=== PATIENT | male | born 1990 | race Caucasian/White ===

== ENCOUNTER → 2020-08-19 | Outpatient (CLI) | payer MEDICAID ==
[2020-08-19 12:34] LABS: AMPHETAMINES URINE REFLEX NEGATIVE (NEGATIVE); BARBITURATES URINE REFLEX NEGATIVE (NEGATIVE); BENZODIAZEPINES URINE REFLEX NEGATIVE (NEGATIVE); COCAINE METABOLITE URINE REFLE NEGATIVE (NEGATIVE); METHADONE URINE REFLEX NEGATIVE (NEGATIVE); OPIATES URINE REFLEX NEGATIVE (NEGATIVE); PHENCYCLIDINE URINE REFLEX NEGATIVE (NEGATIVE)
[2020-08-19 14:12] LABS: CANNABINOIDS URINE REFLEX PENDING CONFIRMATION (NEGATIVE)
== END ==
LOC: EDSEX 10:25 → M LAB 10:25
PROVIDERS: ATTEND Family Medicine Addiction Medicine
DX: F11.21 Opioid dependence, in remission (principal)
CPT/HCPCS: 36415; 80307; G0480

== ENCOUNTER 2020-09-17 06:41 | Emergency (ER) | payer OTHER ==
[~2020-09-17] VITALS: Ht 170.2 cm; Wt 75.3 kg
[2020-09-17] MEDS ORDERED: SUBO12MI SL (06:52)
[2020-09-17] MEDS ORDERED: BUPR150T5 (06:52)
[2020-09-17 07:23] LABS: HEMATOCRIT 39.3 % (42.0-52.0); HEMOGLOBIN 13.7 g/dl (13.5-17.5); MEAN CORPUSCULAR HEMOGLOBIN 29.9 pg (27.0-33.0); MEAN CORPUSCULAR HGB CONC 34.9 g/dl (32.0-36.5); MEAN CORPUSCULAR VOLUME 85.8 fl (80.0-96.0); PLATELET COUNT, AUTOMATED 244 10^3/uL (150-450); RED BLOOD COUNT 4.58 10^6/uL (4.30-6.10); WHITE BLOOD COUNT 10.2 10^3/uL (4.0-10.0)
[2020-09-17 07:39] LABS: AMPHETAMINES LEVEL URINE POSITIVE (NEGATIVE); BARBITURATES URINE NEGATIVE (NEGATIVE); BENZODIAZEPINES URINE NEGATIVE (NEGATIVE); CANNABINOIDS URINE POSITIVE (NEGATIVE); COCAINE METABOLITE URINE NEGATIVE (NEGATIVE); METHADONE URINE NEGATIVE (NEGATIVE); OPIATES URINE NEGATIVE (NEGATIVE); PHENCYCLIDINE URINE NEGATIVE (NEGATIVE)
[2020-09-17 08:04] LABS: ACETAMINOPHEN LEVEL < 2.0 UG/ML (10.0-30.0); ALBUMIN 4.7 GM/DL (3.2-5.2); ALT/SGPT 64 U/L (12-78); BILIRUBIN,DIRECT 0.4 MG/DL (0.0-0.2); BILIRUBIN,TOTAL 1.4 MG/DL (0.2-1.0); BLOOD UREA NITROGEN 20 MG/DL (7-18); CALCIUM LEVEL 9.1 MG/DL (8.5-10.1); CARBON DIOXIDE LEVEL 24 MEQ/L (21-32); CHLORIDE LEVEL 103 MEQ/L (98-107); CREATININE FOR GFR 1.15 MG/DL (0.70-1.30); ETHYL ALCOHOL (ETHANOL) < 0.003 % (0.000-0.010); GLOMERULAR FILTRATION RATE > 60.0 (>60); GLUCOSE, FASTING 93 MG/DL (70-100); POTASSIUM SERUM 3.6 MEQ/L (3.5-5.1); SALICYLATE LEVEL < 1.7 MG/DL (5.0-30.0); SODIUM LEVEL 140 MEQ/L (136-145); TOTAL PROTEIN 8.1 GM/DL (6.4-8.2)
--- OUTSIDE RECORDS SUMMARY | 2020-09-17 08:18 | CCD ---
Author Organization Unknown Address [address] [place] [address] Phone [phone] Care Team Providers Care Rotary Shear Cutter Name Role Phone Yusuf Sepulveda Unavailable Unavailable Allergies Code Code System Name Reaction Severity Status Onset NKDA Medications Name Status Start Date Stop Date albuterol sulfate HFA 90 mcg/actuation aerosol inhaler Active Not available amoxicillin 500 mg capsule TAKE TWO CAPSULES BY MOUTH NOW THEN THEN 1 THREE TIMES A DAY UNTIL GONE Active Not available budesonide-formoterol HFA 160 mcg-4.5 mcg/actuation aerosol inha ler Active Not available buprenorphine 12 mg-naloxone 3 mg sublin gual film PLACE ONE FILM UNDER THE TONGUE EVERY DAY DIRECTED MAXIMUM DAILY DOSE ONE FILM Active Not available buprenorphine 8 mg-naloxone 2 mg subling ual film 1 and 1/2 films once daily. MDD 1 and 1/2 Active Not available bupropion HCl 75 mg tablet TAKE ONE TABLET BY MOUTH EVERY DAY FOR 7 DAYS THEN 1 TWO TIMES A DAY Completed 07/02/2020 bupropion HCl SR 150 mg tablet,12 hr sustained-release Active Not available bupropion HCl XL 150 mg 24 hr tablet, ex tended release TAKE ONE TABLET BY MOUTH EVERY DAY Completed 06/20 chlorhexidine gluconate 0.12 % mouthwash SWISH 15 ML BY MOUTH FOR 30 SECONDS AND SPIT TWO TIMES A DAY Active Not available famotidine 10 mg tablet Take 1 tablet every day by oral route. Active Not available fluticasone propionate 50 mcg/actuation nasal spray,suspension SPRAY 2 SPRAYS IN EACH NOSTRIL EVERY DAY Active Not available oxcarbazepine 300 mg tablet TAKE 1/2 TABLET BY MOUTH FOUR TIMES A DAY Completed 07/02/2020 sulfamethoxazole 800 mg-trimethoprim 160 mg tablet TAKE ONE TABLET BY MOUTH TWICE A DAY FOR 7 DAYS Completed 07/02/2020 trazodone 50 mg tablet Active Not avail able Problems Name Status Onset Date Source Asthma Active 07/02/2020 Opioid Dependence in Remission Active 08/02/2020 Gastroesophageal Reflux Disease without Esophagitis Active 08/30/2020 Procedures Date Name Performed by 08/09/2020 Dental Surgery Procedure Information not available Results Lab Results Date Name Specimen Result Interpretation Description Value Range Status Address 08/19/2020 Drug Eval Toxicology Rehab Normal A mphetamines Urine Reflex negative negative [facility] nter: [address] [facility] Normal Barbiturates Urine Reflex negative n egative [facility]: [address] [facility] Normal Benzodiazepines Urine Reflex negativ e negative [facility]: [address] [facility] High Cannabinoids Urine Reflex pending co nfirmation negative [facility]: [address] [facility] Normal Cocaine Metabolite Urine Refle negat haja negative [facility]: [address] [facility] Normal Methadone Urine Reflex negative nega tive [facility]: [address] [facility] Normal Opiates Urine Reflex negative negati ve [facility]: [address] [facility] Normal Phencyclidine Urine Reflex negative negative [facility]: [address] [facility] 08/19/2020 Cannabinoids Quant Urine ABNORMAL Cannabinoid positive . [facility]: [address] [facility] Normal GC Carboxy THC >300 NG/mL cutoff=10 NG/mL [facility]: [address] [facility] 08/11/2020 Drug of Abuse Panel, Urine No observation recorded. [facility]: [address] [facility] [address], [facility] 08/02/2020 Drug of Abuse Panel, Urine Urine No observation recorded. [facility]: [address] [facility] [address], [place] Past Encounters 08/30/2020 Opioid Dependence in Remission; Insomnia; Gastroesophageal Reflux Disease without Esophagitis; Polysubstance Abuse Yusuf Sepulveda MD: [address] [place] [address], Ph. 08/19/2020 Opioid Dependence in Remission; Insomnia Yusuf Sepulveda MD: [address] [place] [address], Ph. 08/11/2020 Opioid Dependence in Remission Yusuf Sepulveda MD: [address] [place] [address], Ph. 08/02/2020 Opioid Dependence in Remission Yusuf Sepulveda MD: [address] [place] [address], Ph. 07/02/2020 Moderate Persistent Asthma; Smoker; Epigastric Pain; Hepatitis C Screening; Hyperlipidemia Screening; Polysubstance Abuse Cecily Frazier PA-C: [address] [place] [address], Ph. Social History Tobacco Smoking Status Heavy Tobacco Smoker (1/2 PPD) Vaccine List Notes: Pt declined flu shot Plan of Care Reminders Provider Appointments None recorded. Lab None recorded. Referral None recorded. Procedures None recorded. Surgeries None recorded. Imaging None recorded. Vitals 08/30/2020 11:00AM MAT Height Weight BMI Blood Pressure 68.4 in 185 lbs 27.8 kg/m2 102/74 mm[Hg] 08/19/2020 08:40AM MAT Height Weight BMI Blood Pressure 68.4 in 185 lbs 8 oz 27.9 kg/m2 116/80 mm[Hg] 08/11/2020 03:20PM MAT Height Weight BMI Blood Pressure 68.4 in 192 lbs 4 oz 28.9 kg/m2 123/81 mm[Hg] 08/02/2020 02:40PM MAT Height Weight BMI Blood Pressure 68.4 in 185 lbs 16 oz 27.9 kg/m2 111/80 mm[Hg] 07/02/2020 12:40PM NEW PATIENT EXAM Height Weight BMI Blood Pressure 68.4 in 181 lbs 16 oz 27.3 kg/m2 109/71 mm[Hg]
--- OUTSIDE RECORDS SUMMARY | 2020-09-17 08:18 | CCD ---
Author Organization Unknown Address [address] [place] [address] Phone [phone] Care Team Providers Care Hog Driver Name Role Phone Yusuf Sepulveda Unavailable Unavailable [...] TWO TIMES A DAY Active Not available fluticasone propionate 50 mcg/actuation nasal spray,suspension SPRAY 2 SPRAYS IN EACH NOSTRIL EVERY DAY Active Not available oxcarbazepine 300 mg tablet TAKE 1/2 TABLET BY MOUTH FOUR TIMES A DAY Completed 07/02/2020 sulfamethoxazole 800 mg-trimethoprim 160 mg tablet TAKE ONE TABLET BY MOUTH TWICE A DAY FOR 7 DAYS Completed 07/02/2020 Problems Name Status Onset Date Source Asthma Active 07/02/2020 Opioid Dependence in Remission Active 08/02/2020 Procedures Date Name Performed by 08/09/2020 Dental Surgery Procedure Information not available Results Lab Results Date Name Specimen Result Interpretation Description Value Range Status Address 08/02/2020 Drug of Abuse Panel, Urine Urine No observation recorded. [facility]: [address] [facility] [address], [place] Past Encounters 08/11/2020 Opioid Dependence in Remission Yusuf Sepulveda MD: [address] [place] [address], Ph. 08/02/2020 Opioid Dependence in Remission Yusuf Sepulveda MD: [address] [place] [address], Ph. 07/02/2020 Moderate Persistent Asthma; Smoker; Epigastric Pain; Hepatitis C Screening; Hyperlipidemia Screening; Polysubstance Abuse Cecily Frazier PA-C: [address] [place] [address], Ph. Social History Tobacco Smoking Status Heavy Tobacco Smoker (1/2 PPD) Vaccine List Notes: Pt declined flu shot Plan of Care Reminders Provider Appointments None recorded. Lab None recorded. Referral None recorded. Procedures None recorded. Surgeries None recorded. Imaging None recorded. Vitals 08/11/2020 03:20PM MAT Height Weight BMI Blood Pressure 68.4 in 192 lbs 4 oz 28.9 kg/m2 123/81 mm[Hg] 08/02/2020 02:40PM MAT Height Weight BMI Blood Pressure 68.4 in 185 lbs 16 oz 27.9 kg/m2 111/80 mm[Hg] 07/02/2020 12:40PM NEW PATIENT EXAM Height Weight BMI Blood Pressure 68.4 in 181 lbs 16 oz 27.3 kg/m2 109/71 mm[Hg]
--- OUTSIDE RECORDS SUMMARY | 2020-09-17 08:18 | CCD ---
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 Results Lab Results None recorded. Past Encounters 08/02/2020 Opioid Dependence in Remission Yusuf Sepulveda MD: [address] [place] [address], Ph. 07/02/2020 Moderate Persistent Asthma; Smoker; Epigastric Pain; Hepatitis C Screening; Hyperlipidemia Screening; Polysubstance Abuse Cecily Frazier PA-C: [address] [place] [address], Ph. Social History Tobacco Smoking Status Current Every Day Smoker Vaccine List None recorded. Plan of Care Reminders Provider Appointments None recorded. Lab None recorded. Referral None recorded. Procedures None recorded. Surgeries None recorded. Imaging None recorded. Vitals 08/02/2020 02:40PM MAT Height Weight BMI Blood Pressure 68.4 in 185 lbs 16 oz 27.9 kg/m2 111/80 mm[Hg] 07/02/2020 12:40PM NEW PATIENT EXAM Height Weight BMI Blood Pressure 68.4 in 181 lbs 16 oz 27.3 kg/m2 109/71 mm[Hg]
--- OUTSIDE RECORDS SUMMARY | 2020-09-17 08:18 | CCD | Continuity of Care Document ---
Author Author [facility] [employer] Organization Unknown Address [address] [place] [address] Phone [phone] Problems Description No Information Available Social History Type Date Description Comments Sex Unknown Tobacco Use Start: Unknown Light tobacco smoker (10 or fewe r cigarettes/day) ETOH Use Denies alcohol use Recreational Drug Use Former Drug User Tobacco Use Start: Unknown Light tobacco smoker (10 or fewe r cigarettes/day) Smoking Status Reviewed: 06/16/20 Light tobacco smoker (10 or fewer cigarettes/day) Allergies, Adverse Reactions, Alerts Description No Known Drug Allergies Medications Active Medications SIG Qnty Indications Ordering Provide r Date Bupropion Hydrochloride ER (SR) 150mg Tablets ER 12HR 1 by mouth every day 30tabs F33.1 Zaire Harris MD 04/08/2020 Budesonide/Formoterol Fumarate Dihydrate 160-4.5mcg/Act Aerosol 1 puff twice a day 6gm J45.909 Faustina Harris MD 03/17/2020 Albuterol Sulfate HFA 108(90Base) mcg/Act Aerosol 2 inhalations four times a day as needed 6.700gm J45.909 Zaire Harris MD 07/24/2019 Buprenorphine Hydrochloride/Naloxone Hyd rochloride 8-2mg Film 1 and 1/2 sl every day x [id number] 17units F11.20 Sharla Yi NP 07/01/2019 History Medications Bupropion HCL ER (SR) 150mg Tablets ER 12HR 1 every day 30tabs F33.1 Sharla Yi NP 04/08/2020 - 04/08/2020 Bupropion HCL 75mg Tablets 1 every day for 1 week, then 2 per day 60tabs F33.1 Sharla Yi NP 0 - 04/08/2020 Immunizations Description No Information Available Vital Signs Date Vital Result Comment 07/09/2019 4:16pm Weight 162.50 lb Heart Rate 75 /min BP Systolic 102 mmHg BP Diastolic 70 mmHg Height 68 inches 5'8" O2 % BldC Oximetry 98 % [place] Body Weight 154 lb BMI (Body Mass Index) 24.7 kg/m2 06/27/2019 9:02am Body Temperature 98.0 F Weight 166.00 lb Heart Rate 85 /min BP Systolic 130 mmHg BP Diastolic 84 mmHg Height 68 inches 5'8" O2 % BldC Oximetry 97 % [place] Body Weight 154 lb BMI (Body Mass Index) 25.2 kg/m2 Results Test Acquired Date Facility Test Result H/L Range Note Drugs of Abuse w/o THC-[facility] 06/16/2020 [facility] Amphetamines,Urine NEGATIVE <1000 ng/mL 1 Barbiturates,Urine NEGATIVE <200 ng/mL Benzodiazepines, Urine NEGATIVE <200 ng/mL Bupernorphrine/Norbu,Urine POSITIVE Abnormal <10 ng/mL Cocaine Metabolites,Urine NEGATIVE <300 ng/mL Methadone,Urine NEGATIVE <300 ng/mL Opiates,Urine NEGATIVE <300 ng/mL Oxycodone,Urine NEGATIVE <100 ng/mL Phencyclidine,Urine NEGATIVE <25 ng/mL Buprenorphine & Metabolite -Urine 06/16/2020 [facility] Buprenorphine Ur 16 ng/mL 2 Norbuprenorphine Ur 116 ng/mL Buprenorphine Glucu >1000 3 Norbupr Glucuronide 723 4 Naloxone,Urine <100 ng/mL 5 Drugs of Abuse w/o THC-[facility] 03/17/2020 [facility] Amphetamines,Urine NEGATIVE <1000 ng/mL Barbiturates,Urine NEGATIVE <200 ng/mL Benzodiazepines, Urine NEGATIVE <200 ng/mL Bupernorphrine/Norbu,Urine POSITIVE Abnormal <10 ng/mL Cocaine Metabolites,Urine NEGATIVE <300 ng/mL Methadone,Urine NEGATIVE <300 ng/mL Opiates,Urine NEGATIVE <300 ng/mL Oxycodone,Urine NEGATIVE <100 ng/mL Phencyclidine,Urine NEGATIVE <25 ng/mL Chlamydia & GC, Dna-[facility] 03/17/2020 [facility] Chlamydia NOT DETECTED Not Detected GC NOT DETECTED Not Detected Buprenorphine & Metabolite -Urine 03/17/2020 [facility] Buprenorphine Ur 3 ng/mL 6 Norbuprenorphine Ur 31 ng/mL Buprenorphine Glucu 333 7 Norbupr Glucuronide 93 8 Naloxone,Urine <100 ng/mL 9 1 TEST FOR BURPERNORPHRINE 2 INTERPRETIVE INFORMATION: Bu prenorphine and Metabolites, Urine, Quantitative Methodology: Quantitative Liquid Chromatography-Tandem Mass Spectrometry Positive cutoff: Buprenorphine 2 ng/mL Norbuprenorphine 2 ng/mL Buprenorphine glucuronide 5 ng/mL Norbuprenorphine glucuronide 5 ng/mL Naloxone 100 ng/mL For medical purposes only; not valid for forensic use. The presence of metabolite(s) without parent drug is common and may indicate use of parent drug during the prior week. Naloxone is included to detect addition of a naloxone-containing drug directly into the urine. The absence of expected drug(s) and/or drug metabolite(s) may indicate non-compliance, inappropriate timing of specimen collection relative to drug administration, poor drug absorption, diluted/adulterated urine, or limitations of testing. The concentration value must be greater than or equal to the cutoff to be reported as positive. Interpretive questions should be directed to the laboratory. Test developed and characteristics determined by [employer]. See Compliance Statement B: [email or web address]/CS 3 Unit: ng/mL Consistent with use of a buprenorphine-containing drug. Glucuronide concentrations are semi-quantitative. 4 Unit: ng/mL 5 Performed By: [facility] [address] [place] [address] Aged Or Disabled Care Worker: Yaneth Bar MD Unless otherwise specified, testing performed by [facility] [address] [place] [id number] [phone] INTERPRETIVE INFORMATION: Bu prenorphine and Metabolites, Urine, Quantitative Methodology: Quantitative Liquid Chromatography-Tandem Mass Spectrometry Positive cutoff: Buprenorphine 2 ng/mL Norbuprenorphine 2 ng/mL Buprenorphine glucuronide 5 ng/mL Norbuprenorphine glucuronide 5 ng/mL Naloxone 100 ng/mL For medical purposes only; not valid for forensic use. The presence of metabolite(s) without parent drug is common and may indicate use of parent drug during the prior week. Naloxone is included to detect addition of a naloxone-containing drug directly into the urine. The absence of expected drug(s) and/or drug metabolite(s) may indicate non-compliance, inappropriate timing of specimen collection relative to drug administration, poor drug absorption, diluted/adulterated urine, or limitations of testing. The concentration value must be greater than or equal to the cutoff to be reported as positive. Interpretive questions should be directed to the laboratory. Test developed and characteristics determined by [employer]. See Compliance Statement B: [email or web address] 7 Unit: ng/mL Consistent with use of a buprenorphine-containing drug. Glucuronide concentrations are semi-quantitative. 8 Unit: ng/mL 9 Performed By: [facility] [address] [place] [address] Aged Or Disabled Care Worker: Severo Orta MD, MS Unless otherwise specified, testing performed by [facility] [place] [address] Procedures Description No Information Available Medical Devices Description No Information Available Encounters Type Date Location Provider Dx Diagnosis Office Visit 07/21/2020 3:20p [facility] Sharla Yi NP F11.20 Opioid dependence, uncomplicated F33.1 Major depressive disorder, r ecurrent, moderate Office Visit 07/07/2020 2:00p [facility] Sharla Yi NP F11.20 Opioid dependence, uncomplicated F33.1 Major depressive disorder, r ecurrent, moderate Office Visit 06/23/2020 2:00p [facility] Sharla Yi NP F11.20 Opioid dependence, uncomplicated F33.1 Major depressive disorder, r ecurrent, moderate Office Visit 06/16/2020 2:20p [facility] Sharla Yi NP F11.20 Opioid dependence, uncomplicated F33.1 Major depressive disorder, r ecurrent, moderate Office Visit 06/07/2020 3:20p [facility] Brittany Weiner NP F11.20 Opioid dependence, uncomplicated F33.1 Major depressive disorder, r ecurrent, moderate B18.2 Chronic viral hepatitis C J45.909 Unspecified asthma, uncompli cated Office Visit 04/15/2020 2:00p [facility] Sharla Yi NP F11.20 Opioid dependence, uncomplicated F33.1 Major depressive disorder, r ecurrent, moderate B18.2 Chronic viral hepatitis C J45.909 Unspecified asthma, uncompli cated Office Visit 04/08/2020 1:20p [facility] Sharla Yi NP F11.20 Opioid dependence, uncomplicated F33.1 Major depressive disorder, r ecurrent, moderate Office Visit 04/01/2020 1:20p [facility] Sharla Yi NP F11.20 Opioid dependence, uncomplicated F33.1 Major depressive disorder, r ecurrent, moderate Office Visit 03/25/2020 1:20p [facility] Sharla Yi, [employer]IL FIELD [employer]STABOUT F11.20 Opioid dependence, uncomplicated F33.1 Major depressive disorder, r ecurrent, moderate Office Visit 03/17/2020 2:40p [facility] Sharla Yi, [employer] F11.20 Opioid dependence, uncomplicated F33.1 Major depressive disorder, r ecurrent, moderate B18.2 Chronic viral hepatitis C J45.909 Unspecified asthma, uncompli cated Z20.2 Contact w and exposure to in fect w a sexl mode of transmiss Assessments Date Code Description Provider 07/21/2020 F11.20 Opioid dependence, uncomplicated Reta Yie, [employer] 07/21/2020 F33.1 Major depressive disorder, recur rent, moderate Kd Sharla, [employer] 07/07/2020 F11.20 Opioid dependence, uncomplicated Yi, Sharla, [employer] 07/07/2020 F33.1 Major depressive disorder, recur rent, moderate Kd Sharla, [employer] FIELD [employer]ST[employer]OUT 06/23/2020 F11.20 Opioid dependence, uncomplicated Yi, Sharla, [employer] 06/23/2020 F33.1 Major depressive disorder, recur rent, moderate Yi, Sharla, [employer]OUT 06/16/2020 F11.20 Opioid dependence, uncomplicated Yi, Sharla, [employer] 06/16/2020 F33.1 Major depressive disorder, recur rent, moderate Yi, Sharla, [employer] 06/16/2020 F11.20 Opioid dependence, uncomplicated [facility] 06/07/2020 F11.20 Opioid dependence, uncomplicated Padden, Brittany, [employer] 06/07/2020 F33.1 Major depressive disorder, recur rent, moderate Padden, Brittany, [employer] 06/07/2020 B18.2 Chronic viral hepatitis C Padden , Brittany, [employer] 06/07/2020 J45.909 Unspecified asthma, uncomplicate d Padden, Brittany, [employer] 04/15/2020 F11.20 Opioid dependence, uncomplicated Yi, Sharla, [employer] 04/15/2020 F33.1 Major depressive disorder, recur rent, moderate Yi, Sharla, [employer]OUT 04/15/2020 B18.2 Chronic viral hepatitis C Kd Sharla, [employer] FIELD [employer]STABOUT 04/15/2020 J45.909 Unspecified asthma, uncomplicate d Sharla Yi, [employer]ELD [employer]STABOUT 04/08/2020 F11.20 Opioid dependence, uncomplicated Sharla Yi, KRISTEL 04/08/2020 F33.1 Major depressive disorder, recur rent, moderate Sharla Yi, [employer]OUT 04/01/2020 F11.20 Opioid dependence, uncomplicated Sharla Yi, OIL FIELD R[employer]STABOUT 04/01/2020 F33.1 Major depressive disorder, recur rent, moderate Sharla Yi, OIL FIELD R[employer]STABOUT 03/25/2020 F11.20 Opioid dependence, uncomplicated Sharla Yi, OIL FIELD R[employer]STABOUT 03/25/2020 F33.1 Major depressive disorder, recur rent, moderate Sharla Yi, OIL FIELD R[employer]STABOUT 03/17/2020 F11.20 Opioid dependence, uncomplicated Sharla Yi, OIL FIELD ROUSTABOUT 03/17/2020 F33.1 Major depressive disorder, recur rent, moderate Sharla Yi, OIL FIELD R[employer]STABOUT 03/17/2020 B18.2 Chronic viral hepatitis C Sharla Yi NP 03/17/2020 J45.909 Unspecified asthma, uncomplicate d Sharla Yi, [employer]IL FIELD [employer]STABOUT 03/17/2020 Z20.2 Contact with and (gusman spected) exposure to infections with a predominantly sexual mode of transmission Sharla Yi NP 03/17/2020 F11.20 [facility]ioid [facility], uncomplicated [facility] 03/17/2020 Z20.2 Contact w and exposure to infect w a sexl mode of transmiss [facility] Plan of Treatment 07/21/2020 - Sharla Yi NP* F11.20 Opioid dependence, uncomplicated* Comments: * I spent 15 minutes discussing the goals of therapy, short term bridge, expectation of no use, weekly visit, weekly urines, and engage in therapy. Stressed the need to come to the appointments, use coping skills, and not use any recreational drugs. Plan: Had appointment with [facility] for PCP and intake for MAT on 07/02/20. Next appointment with MAT prescriber 08/02/20.Urine toxicity screen from previous visit reviewed. Prescribed medication only.Patient states that 12 mg of Suboxone is helping to avoid use of opioids. My recommendation is to continue on same dose for 11 days. Should then recieve MAT from maintenance prescriber. WIll contact us if presciption extension needed.MUNICIPAL CLERK reviewed. * F33.1 Major depressive disorder, recurrent, moderate* Comments:* Taking wellbutrin 150 mg per day with benefit. Functional Status Description No Information Available Mental Status Description No Information Available Referrals Description No Information Available
--- OUTSIDE RECORDS SUMMARY | 2020-09-17 08:18 | CCD ---
Author Organization Unknown Address [address] [place] [address] Phone [phone] Care Team Providers Care Share Holder Name Role Phone Derick Yusuf Unavailable Unavailable Allergies Code Code System Name [...] DAYS Completed 07/02/2020 trazodone 50 mg tablet Take 1 tablet every day by oral route. Active Not available Problems Name Status Onset Date Source Asthma Active 07/02/2020 Opioid Dependence in Remission Active 08/02/2020 Procedures Date Name Performed by 08/09/2020 Dental Surgery Procedure Information not available Results Lab Results Date Name Specimen Result Interpretation Description Value Range Status Address 08/11/2020 Drug of Abuse Panel, Urine No observation recorded. [facility]: [address] [facility] Ayesha Pulido 08/02/2020 Drug of Abuse Panel, Urine Urine No observation recorded. [facility]: [address] [facility] [address] Past Encounters 08/19/2020 Opioid Dependence in Remission; Insomnia Yusuf Sepulveda MD: [address] [place] [address], Ph. 08/11/2020 Opioid Dependence in Remission Yusuf Sepulveda MD: [address] [place] [address], Ph. 08/02/2020 Opioid Dependence in Remission Yusuf Sepulveda MD: [address] [place] [address], Ph. 07/02/2020 Moderate Persistent Asthma; Smoker; Epigastric Pain; Hepatitis C Screening; Hyperlipidemia Screening; Polysubstance Abuse Cecily Frazier PA-C: [address] [place] [address], Ph. Social History Tobacco Smoking Status Heavy Tobacco Smoker (1/2 PPD) Vaccine List Notes: Pt declined flu shot Plan of Care Reminders Provider Appointments None recorded. Lab None recorded. Referral None recorded. Procedures None recorded. Surgeries None recorded. Imaging None recorded. Vitals 08/19/2020 08:40AM MAT Height Weight BMI Blood [...]
--- OUTSIDE RECORDS SUMMARY | 2020-09-17 08:19 | CCD ---
Author Organization Unknown Address [address] [place] [address] Phone [phone] Care Team Providers Care Machine Ii Cutter Name Role Phone Yusuf Sepulveda Unavailable Unavailable Allergies None recorded. Medications Name Status Start Date Stop Date albuterol sulfate HFA 90 mcg/actuation a erosol inhaler INHALE TWO PUFFS BY MOUTH FOUR TIMES A DAY NEEDED Active Not available budesonide-formoterol HFA 160 mcg-4.5 mc g/actuation aerosol inhaler INSTILL 1 PUFF BY MOUTH TWO TIMES A DAY Active Not available buprenorphine 12 mg-naloxone 3 mg sublin gual film PLACE ONE FILM UNDER THE TONGUE EVERY DAY DIRECTED MAXIMUM DAILY DOSE ONE FILM Active Not available buprenorphine 8 mg-naloxone 2 mg subling ual film PLACE ONE AND ONE HALF FILMS UNDER THE TONGUE EVERY DAY MAXIMUM DAILY DOSE 1 1/2 FILMS Completed 07/02/2020 bupropion HCl 75 mg tablet TAKE ONE TABLET BY MOUTH EVERY DAY FOR 7 DAYS THEN 1 TWO TIMES A DAY Completed 07/02/2020 bupropion HCl SR 150 mg tablet,12 hr tabby tained-release TAKE ONE TABLET BY MOUTH EVERY DAY Active Not available bupropion HCl XL 150 [...] Status Onset Date Source Asthma Active 07/02/2020 Procedures None recorded. Results Lab Results None recorded. Past Encounters 07/02/2020 Moderate Persistent Asthma; Smoker; Epigastric Pain; Hepatitis C Screening; Hyperlipidemia Screening; Polysubstance Abuse [facility] [address] [place] [address], Ph. Social History Tobacco Smoking Status Current Every Day Smoker Vaccine List None recorded. Plan of Care Reminders Provider Appointments None recorded. Lab None recorded. Referral None recorded. Procedures None recorded. Surgeries None recorded. Imaging None recorded. Vitals Height Weight BMI Blood Pressure 68.4 in 181 lbs 16 oz 27.3 kg/m2 109/71 mm[Hg]
--- OUTSIDE RECORDS SUMMARY | 2020-09-17 08:19 | CCD | Continuity of Care Document ---
Author Author [facility] YI TICKET MARKER Organization Unknown Address [address] [place] [address] Phone [phone] Problems Description No Information Available Social History [...] a day as needed 6.700gm J45.909 Zaire aHrris MD 07/24/2019 Buprenorphine Hydrochloride/Naloxone Hyd rochloride 8-2mg Film 1 and 1/2 sl every day x [id number] 21units F11.20 Sharla Yi NP 07/01/2019 History Medications [...] 5'8" O2 % BldC Oximetry 98 % [place] Body Weight 154 lb BMI (Body Mass Index) 24.7 kg/m2 06/27/2019 9:02am Body Temperature 98.0 F Weight 166.00 lb Heart Rate 85 /min BP Systolic 130 mmHg BP Diastolic 84 mmHg Height 68 inches 5'8" O2 % BldC Oximetry 97 % [place] Body Weight 154 lb BMI (Body Mass [...] laboratory. Test developed and characteristics determined by [facility]. See Compliance Statement B: [email or web address] 3 Unit: ng/mL Consistent with use of a buprenorphine-containing drug. Glucuronide concentrations are semi-quantitative. 4 Unit: ng/mL 5 Performed By: [facility] [address] [place] [address] Straightening Machine Operator: Yaneth Bar MD Unless otherwise specified, testing performed by [facility] [place] [facility] [address] [place] [id number] [phone] INTERPRETIVE INFORMATION: Bu prenorphine and Metabolites, [...] laboratory. Test developed and characteristics determined by [facility]. See Compliance Statement B: [email or web address] 7 Unit: ng/mL Consistent with use of a buprenorphine-containing drug. Glucuronide concentrations are semi-quantitative. 8 Unit: ng/mL 9 Performed By: [facility] [address] [place] [address] Straightening Machine Operator: Severo Orta MD, MS Unless otherwise specified, testing performed by [facility] [place] [facility] [address] [address] Procedures Description No Information Available Medical Devices Description No Information Available Encounters Type Date Location Provider Dx Diagnosis Office Visit 07/07/2020 2:00p [facility] Sharla Yi NP F11.20 Opioid dependence, uncomplicated F33.1 Major depressive disorder, r ecurrent, moderate Office Visit 06/23/2020 2:00p [facility] Sharla Yi NP F11.20 Opioid dependence, uncomplicated F33.1 Major depressive disorder, r ecurrent, moderate Office Visit 06/16/2020 2:20p [facility] Sharla Yi NP F11.20 Opioid dependence, uncomplicated F33.1 Major depressive disorder, r ecurrent, moderate Office Visit 06/07/2020 3:20p [facility] Brittany Weiner NP F11.20 Opioid dependence, uncomplicated F33.1 Major depressive disorder, r ecurrent, moderate B18.2 Chronic viral hepatitis C J45.909 Unspecified asthma, uncompli cated Office Visit 04/15/2020 2:00p [facility] Sharla Yi NP F11.20 Opioid dependence, uncomplicated F33.1 Major depressive disorder, r ecurrent, moderate B18.2 Chronic viral hepatitis C J45.909 Unspecified asthma, uncompli cated Office Visit 04/08/2020 1:20p [facility] Sharla Yi NP F11.20 Opioid dependence, uncomplicated F33.1 Major depressive disorder, r ecurrent, moderate Office Visit 04/01/2020 1:20p [facility] Sharla Yi NP F11.20 Opioid dependence, uncomplicated F33.1 Major depressive disorder, r ecurrent, moderate Office Visit 03/25/2020 1:20p [facility] Sharla Yi NP F11.20 Opioid dependence, uncomplicated F33.1 Major depressive disorder, r ecurrent, moderate Office Visit 03/17/2020 2:40p [facility] Sharla Yi, TICKET MARKER F11.20 Opioid dependence, uncomplicated F33.1 Major depressive disorder, r ecurrent, moderate B18.2 Chronic viral hepatitis C J45.909 Unspecified asthma, uncompli cated Z20.2 Contact w and exposure to in fect w a sexl mode of transmiss Assessments Date Code Description Provider 07/07/2020 F11.20 Opioid dependence, uncomplicated Sharla Yi, TICKET MARKER 07/07/2020 F33.1 Major depressive disorder, recur rent, moderate Kd Sharla, TICKET MARKER 06/23/2020 F11.20 Opioid dependence, uncomplicated Reta Yie, TICKET MARKER 06/23/2020 F33.1 Major depressive disorder, recur rent, moderate Kd Sharla, TICKET MARKER 06/16/2020 F11.20 Opioid dependence, uncomplicated Reta Yie, TICKET MARKER 06/16/2020 F33.1 Major depressive disorder, recur rent, moderate Reta Yie, TICKET MARKER 06/16/2020 F11.20 Opioid dependence, uncomplicated [facility] 06/07/2020 F11.20 Opioid dependence, uncomplicated Padden, Brittany, TICKET MARKER 06/07/2020 F33.1 Major depressive disorder, recur rent, moderate Padden, Brittany, TICKET MARKER 06/07/2020 B18.2 Chronic viral hepatitis C Padden , Brittany, TICKET MARKER 06/07/2020 J45.909 Unspecified asthma, uncomplicate d Padden, Brittany, TICKET MARKER 04/15/2020 F11.20 Opioid dependence, uncomplicated Kd Sharla, TICKET MARKER 04/15/2020 F33.1 Major depressive disorder, recur rent, moderate Kd Sharla, TICKET MARKER 04/15/2020 B18.2 Chronic viral hepatitis C Kd Sharla, TICKET MARKER 04/15/2020 J45.909 Unspecified asthma, uncomplicate d Kd Sharla, TICKET MARKER 04/08/2020 F11.20 Opioid dependence, uncomplicated Kd Sharla, TICKET MARKER 04/08/2020 F33.1 Major depressive disorder, recur rent, moderate Kd Sharla, TICKET MARKER 04/01/2020 F11.20 Opioid dependence, uncomplicated Yi Sharla, TICKET MARKER 04/01/2020 F33.1 Major depressive disorder, recur rent, moderate Sharla Yi NP 03/25/2020 F11.20 Opioid dependence, uncomplicated Sharla Yi NP 03/25/2020 F33.1 Major depressive disorder, recur rent, moderate Sharla Yi NP 03/17/2020 F11.20 Opioid dependence, uncomplicated Sharla Yi NP 03/17/2020 F33.1 Major depressive disorder, recur rent, moderate Sharla Yi NP 03/17/2020 B18.2 Chronic viral hepatitis C Sharla Yi NP 03/17/2020 J45.909 Unspecified asthma, uncomplicate d Sharla Yi NP 03/17/2020 Z20.2 Contact with and (gusman spected) exposure to infections with a predominantly sexual mode of transmission Sharla Yi NP 03/17/2020 F11.20 Opioid dependence, uncomplicated [facility] 03/17/2020 Z20.2 Contact w and exposure to infect w a sexl mode of transmiss [facility] Plan of Treatment Future Appointment(s):* 07/21/2020 3:00 pm - Sharla Yi NP at [facility] 07/07/2020 - Sharla Yi NP* F11.20 Opioid dependence, uncomplicated* Comments: * I spent 15 minutes discussing the goals of therapy, short term bridge, expectation of no use, weekly visit, weekly urines, and engage in therapy. Stressed the need to come to the appointments, use coping skills, and not use any recreational drugs. Plan: Had appointment with [facility] for PCP and intake for MAT on 07/02/20. Waiting word from them on when he can start their program.Urine toxicity screen from previous visit reviewed. Prescribed medication only.Patient states that 12 mg of Suboxone is helping to avoid use of opioids. My recommendation is to continue on same dose for 14 days. 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 * F33.1 Major depressive disorder, recurrent, moderate* Comments:* Taking wellbutrin 150 mg per day with benefit. Functional Status Description No Information Available Mental Status Description No Information Available Referrals Description No Information Available
--- OUTSIDE RECORDS SUMMARY | 2020-09-17 08:19 | CCD | Continuity of Care Document ---
Author Author EFRAÍN Bentley [facility] Organization Unknown Address [address] [place] [address] Phone [phone] Problems Description No Information Available Social History [...] 1 and 1/2 sl every day x [id number] 21units F11.20 Sharla Yi NP 07/01/2019 History [...] 5'8" O2 % BldC Oximetry 98 % [place] Body Weight 154 lb BMI (Body Mass Index) 24.7 kg/m2 06/27/2019 9:02am Body Temperature 98.0 F Weight 166.00 lb Heart Rate 85 /min BP Systolic 130 mmHg BP Diastolic 84 mmHg Height 68 inches 5'8" O2 % BldC Oximetry 97 % [place] Body Weight 154 lb BMI (Body Mass [...] laboratory. Test developed and characteristics determined by [email or web address]. See Compliance Statement B: [email or web address] 3 Unit: ng/mL Consistent with use of a buprenorphine-containing drug. Glucuronide concentrations are semi-quantitative. 4 Unit: ng/mL 5 Performed By: [facility] [address] [place] [address] Forest Fire Control Officer: Yaneth Bar MD Unless otherwise specified, testing performed by [facility] [place] [email or web address] [address] [place] [id number] [phone] INTERPRETIVE INFORMATION: Bu prenorphine and Metabolites, [...] laboratory. Test developed and characteristics determined by [email or web address]. See Compliance Statement B: [email or web address] 7 Unit: ng/mL Consistent with use of a buprenorphine-containing drug. Glucuronide concentrations are semi-quantitative. 8 Unit: ng/mL 9 Performed By: [facility] [address] [place] [address] Forest Fire Control Officer: Severo Orta MD, MS Unless otherwise specified, testing performed by [facility] [place] [facility] [address] [address] Procedures Description No Information Available Medical Devices Description No Information Available Encounters Type Date Location Provider Dx Diagnosis Office Visit 06/23/2020 2:00p [email or web address] Sharla Yi NP F11.20 Opioid dependence, [...] uncompli cated Office Visit 04/08/2020 1:20p [facility] Sharla Slater NP F11.20 Opioid dependence, uncomplicated F33.1 Major depressive disorder, r ecurrent, moderate Office Visit 04/01/2020 1:20p [facility] Sharla Yi NP F11.20 Opioid dependence, uncomplicated F33.1 Major depressive disorder, r ecurrent, moderate Office Visit 03/25/2020 1:20p [facility] Sharla Yi NP F11.20 Opioid dependence, uncomplicated F33.1 Major depressive disorder, r ecurrent, moderate Office Visit 03/17/2020 2:40p [facility] Sharla Slater NP F11.20 Opioid dependence, uncomplicated F33.1 Major depressive disorder, r ecurrent, moderate B18.2 Chronic viral hepatitis C J45.909 Unspecified asthma, uncompli cated Z20.2 Contact w and exposure to in fect w a sexl mode of transmiss Assessments Date Code Description Provider 06/23/2020 F11.20 Opioid dependence, uncomplicated Yi, Sharla, TAKER AWAY 06/23/2020 F33.1 Major depressive disorder, recur rent, moderate Yi, Sharla, TAKER AWAY 06/16/2020 F11.20 Opioid dependence, uncomplicated Yi, Sharla, TAKER AWAY 06/16/2020 F33.1 Major depressive disorder, recur rent, moderate Yi, Sharla, TAKER AWAY 06/16/2020 F11.20 Opioid dependence, uncomplicated [facility] 06/07/2020 F11.20 Opioid dependence, uncomplicated Padden, Brittany, TAKER AWAY 06/07/2020 F33.1 Major depressive disorder, recur rent, moderate Padden, Brittany, TAKER AWAY 06/07/2020 B18.2 Chronic viral hepatitis C Padden , Brittany, TAKER AWAY 06/07/2020 J45.909 Unspecified asthma, uncomplicate d Padden, Brittany, TAKER AWAY 04/15/2020 F11.20 Opioid dependence, uncomplicated Yi, Sharla, TAKER AWAY 04/15/2020 F33.1 Major depressive disorder, recur rent, moderate Yi, Sharla, TAKER AWAY 04/15/2020 B18.2 Chronic viral hepatitis C Iy, Sharla, TAKER AWAY 04/15/2020 J45.909 Unspecified asthma, uncomplicate d Yi, Sharla, TAKER AWAY 04/08/2020 F11.20 Opioid dependence, uncomplicated Yi, Sharla, TAKER AWAY 04/08/2020 F33.1 Major depressive disorder, recur rent, moderate Yi, Sharla, TAKER AWAY 04/01/2020 F11.20 Opioid dependence, uncomplicated Yi, Sharla, TAKER AWAY 04/01/2020 F33.1 Major depressive disorder, recur rent, moderate Yi, Sharla, TAKER AWAY 03/25/2020 F11.20 Opioid dependence, uncomplicated Yi, Sharla, TAKER AWAY 03/25/2020 F33.1 Major depressive disorder, recur rent, moderate Yi, Sharla, TAKER AWAY 03/17/2020 F11.20 Opioid dependence, uncomplicated Yi, Sharla, TAKER AWAY 03/17/2020 F33.1 Major depressive disorder, recur rent, moderate Sharla Yi NP 03/17/2020 B18.2 Chronic viral hepatitis C Sharla Yi NP 03/17/2020 J45.909 Unspecified asthma, uncomplicate d Sharla Yi NP 03/17/2020 Z20.2 Contact with and (gusman spected) exposure to infections with a predominantly sexual mode of transmission Sharla Yi NP 03/17/2020 F11.20 Opioid dependence, uncomplicated [facility] 03/17/2020 Z20.2 Contact w and exposure to infect w a sexl mode of transmiss [facility] Plan of Treatment Future Appointment(s):* 07/07/2020 2:00 pm - Sharla Yi NP at [facility] 06/23/2020 - Sharla Yi NP* F11.20 Opioid dependence, uncomplicated* Comments: * I spent 15 minutes discussing the goals of therapy, short term bridge, expectation of no use, weekly visit, weekly urines, and engage in therapy. Stressed the need to come to the appointments, use coping skills, and not use any recreational drugs. Plan: Has appointment with [facility] for PCP and intake for MAT on 07/02/20.Urine toxicity screen from previous visit reviewed. Prescribed medication only.Patient states that 12 mg of Suboxone is helping to avoid use of opioids. My recommendation is to continue on same dose for 14 days. 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 * F33.1 Major depressive disorder, recurrent, moderate* Comments:* Taking wellbutrin 150 mg per day with benefit. Functional Status Description No Information Available Mental Status Description No Information Available Referrals Description No Information Available
--- OUTSIDE RECORDS SUMMARY | 2020-09-17 08:19 | CCD | Continuity of Care Document ---
Author Author Sanford YI TRAILER SECTIONS ASSEMBLER Organization Unknown Address [address] [place] [id number] Phone [phone] Problems Description No Information Available Social History [...] 1 and 1/2 sl every day x [id number] 21units F11.20 Sharla Yi NP 07/01/2019 History [...] 5'8" O2 % BldC Oximetry 98 % [place] Body Weight 154 lb BMI (Body Mass Index) 24.7 kg/m2 06/27/2019 9:02am Body Temperature 98.0 F Weight 166.00 lb Heart Rate 85 /min BP Systolic 130 mmHg BP Diastolic 84 mmHg Height 68 inches 5'8" O2 % BldC Oximetry 97 % [place] Body Weight 154 lb BMI (Body Mass [...] laboratory. Test developed and characteristics determined by [facility]. See Compliance Statement B: [email or web address] 3 Unit: ng/mL Consistent with use of a buprenorphine-containing drug. Glucuronide concentrations are semi-quantitative. 4 Unit: ng/mL 5 Performed By: [facility] [address] [place] [address] Medical Staff Director: Yaneth Bar MD Unless otherwise specified, testing performed by [facility] [place] [facility] [address] [place] [id number] INTERPRETIVE INFORMATION: Bu prenorphine and Metabolites, [...] laboratory. Test developed and characteristics determined by [facility]. See Compliance Statement B: [email or web address] 7 Unit: ng/mL Consistent with use of a buprenorphine-containing drug. Glucuronide concentrations are semi-quantitative. 8 Unit: ng/mL 9 Performed By: [facility] [address] [place] [address] Medical Staff Director: Severo Orta MD, MS Unless otherwise specified, testing performed by [facility] [place] [address] Procedures Description No Information Available Medical Devices Description No Information Available Encounters Type Date Location Provider Dx Diagnosis Office Visit 06/23/2020 2:00p [facility] Sharla Slater NP F11.20 Opioid dependence, uncomplicated F33.1 Major depressive disorder, r ecurrent, moderate Office Visit 06/16/2020 2:20p [facility] Sharla Yi NP F11.20 Opioid dependence, uncomplicated F33.1 Major depressive disorder, r ecurrent, moderate Office Visit 06/07/2020 3:20p [facility] Brittany Weiner NP F11.20 Opioid dependence, uncomplicated F33.1 Major depressive disorder, r ecurrent, moderate B18.2 Chronic viral hepatitis C J45.909 Unspecified asthma, uncompli cated Office Visit 04/15/2020 2:00p [facility] Sharla Yi NP F11.20 Opioid dependence, uncomplicated F33.1 Major depressive disorder, r ecurrent, moderate B18.2 Chronic viral hepatitis C J45.909 Unspecified asthma, uncompli cated Office Visit 04/08/2020 1:20p [facility] Sharla Slater NP F11.20 Opioid dependence, uncomplicated F33.1 Major depressive disorder, r ecurrent, moderate Office Visit 04/01/2020 1:20p [facility] Sharla Yi NP F11.20 Opioid dependence, uncomplicated F33.1 Major depressive disorder, r ecurrent, moderate Office Visit 03/25/2020 1:20p [facility] Sharla Yi NP F11.20 Opioid dependence, uncomplicated F33.1 Major depressive disorder, r ecurrent, moderate Office Visit 03/17/2020 2:40p [facility] Sharla Yi NP F11.20 Opioid dependence, uncomplicated F33.1 Major depressive disorder, r ecurrent, moderate B18.2 Chronic viral hepatitis C J45.909 Unspecified asthma, uncompli cated Z20.2 Contact w and exposure to in fect w a sexl mode of transmiss Assessments Date Code Description Provider 06/23/2020 F11.20 Opioid dependence, uncomplicated Yi, Sharla, TRAILER SECTIONS ASSEMBLER 06/23/2020 F33.1 Major depressive disorder, recur rent, moderate Yi, Sharla, TRAILER SECTIONS ASSEMBLER 06/16/2020 F11.20 Opioid dependence, uncomplicated Yi, Sharla, TRAILER SECTIONS ASSEMBLER 06/16/2020 F33.1 Major depressive disorder, recur rent, moderate Yi, Sharla, TRAILER SECTIONS ASSEMBLER 06/16/2020 F11.20 Opioid dependence, uncomplicated [facility] 06/07/2020 F11.20 Opioid dependence, uncomplicated Padden, Brittany, TRAILER SECTIONS ASSEMBLER 06/07/2020 F33.1 Major depressive disorder, recur rent, moderate Padden, Brittany, TRAILER SECTIONS ASSEMBLER 06/07/2020 B18.2 Chronic viral hepatitis C Padden , Brittany, TRAILER SECTIONS ASSEMBLER 06/07/2020 J45.909 Unspecified asthma, uncomplicate d Padden, Brittany, TRAILER SECTIONS ASSEMBLER 04/15/2020 F11.20 Opioid dependence, uncomplicated Yi, Sharla, TRAILER SECTIONS ASSEMBLER 04/15/2020 F33.1 Major depressive disorder, recur rent, moderate Yi, Sharla, TRAILER SECTIONS ASSEMBLER 04/15/2020 B18.2 Chronic viral hepatitis C Yi, Sharla, TRAILER SECTIONS ASSEMBLER 04/15/2020 J45.909 Unspecified asthma, uncomplicate d Yi, Sharla, TRAILER SECTIONS ASSEMBLER 04/08/2020 F11.20 Opioid dependence, uncomplicated Yi, Sharla, TRAILER SECTIONS ASSEMBLER 04/08/2020 F33.1 Major depressive disorder, recur rent, moderate Yi, Sharla, TRAILER SECTIONS ASSEMBLER 04/01/2020 F11.20 Opioid dependence, uncomplicated Yi, Sharla, TRAILER SECTIONS ASSEMBLER 04/01/2020 F33.1 Major depressive disorder, recur rent, moderate Yi, Sharla, TRAILER SECTIONS ASSEMBLER 03/25/2020 F11.20 Opioid dependence, uncomplicated Yi, Sharla, TRAILER SECTIONS ASSEMBLER 03/25/2020 F33.1 Major depressive disorder, recur rent, moderate Yi, Sharla, TRAILER SECTIONS ASSEMBLER 03/17/2020 F11.20 Opioid dependence, uncomplicated Yi, Sharla, TRAILER SECTIONS ASSEMBLER 03/17/2020 F33.1 Major depressive disorder, recur rent, moderate Sharla Yi NP 03/17/2020 B18.2 Chronic viral hepatitis C Sharla Yi NP 03/17/2020 J45.909 Unspecified asthma, uncomplicate d Sharla Yi NP 03/17/2020 Z20.2 Contact with and (gusman spected) exposure to infections with a predominantly sexual mode of transmission Sharla Yi NP 03/17/2020 F11.20 Opioid dependence, uncomplicated [facility] 03/17/2020 Z20.2 Contact w and exposure to infect w a sexl mode of transmiss [facility] Plan of Treatment Future Appointment(s):* 07/07/2020 2:00 pm - Sharla Yi NP at [facility] 06/23/2020 - Sharla Yi NP* F11.20 Opioid dependence, uncomplicated* Comments: * I spent 15 minutes discussing the goals of therapy, short term bridge, expectation of no use, weekly visit, weekly urines, and engage in therapy. Stressed the need to come to the appointments, use coping skills, and not use any recreational drugs. Plan: Has appointment with [facility] for PCP and intake for MAT on 07/02/20.Urine toxicity screen from previous visit reviewed. Prescribed medication only.Patient states that 12 mg of Suboxone is helping to avoid use of opioids. My recommendation is to continue on same dose for 14 days. 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 * F33.1 Major depressive disorder, recurrent, moderate* Comments:* Taking wellbutrin 150 mg per day with benefit. Functional Status Description No Information Available Mental Status Description No Information Available Referrals Description No Information Available
--- OUTSIDE RECORDS SUMMARY | 2020-09-17 08:19 | CCD | Continuity of Care Document ---
Author Author [place] YI JAVA DEVELOPER ANALYST Organization Unknown Address [address] [place] [id number] Phone [phone] Problems Description No Information Available Social History [...] 1 and 1/2 sl every day x [id number] 21units F11.20 Sharla Yi NP 07/01/2019 History [...] 5'8" O2 % BldC Oximetry 98 % [place] Body Weight 154 lb BMI (Body Mass Index) 24.7 kg/m2 06/27/2019 9:02am Body Temperature 98.0 F Weight 166.00 lb Heart Rate 85 /min BP Systolic 130 mmHg BP Diastolic 84 mmHg Height 68 inches 5'8" O2 % BldC Oximetry 97 % [place] Body Weight 154 lb BMI (Body Mass [...] laboratory. Test developed and characteristics determined by [email or web address]. See Compliance Statement B: [email or web address] 3 Unit: ng/mL Consistent with use of a buprenorphine-containing drug. Glucuronide concentrations are semi-quantitative. 4 Unit: ng/mL 5 Performed By: [facility] [address] [place] [address] Batch Plant Operator: Yaneth Bar MD Unless otherwise specified, testing performed by [facility] [address] [place] [id number] INTERPRETIVE INFORMATION: Bu prenorphine and Metabolites, [...] laboratory. Test developed and characteristics determined by [email or web address]. See Compliance Statement B: [email or web address] 7 Unit: ng/mL Consistent with use of a buprenorphine-containing drug. Glucuronide concentrations are semi-quantitative. 8 Unit: ng/mL 9 Performed By: [facility] [address] [place] [address] Batch Plant Operator: Severo Orta MD, MS Unless otherwise specified, testing performed by [facility] [employer] [place] [address] Procedures Description No Information Available Medical Devices Description No Information Available Encounters Type Date Location Provider Dx Diagnosis Office Visit 06/23/2020 2:00p [facility] Sharla Slater NP F11.20 Opioid dependence, uncomplicated F33.1 Major depressive disorder, r ecurrent, moderate Office Visit 06/16/2020 2:20p [facility] Sharla Yi NP F11.20 Opioid dependence, uncomplicated F33.1 Major depressive disorder, r ecurrent, moderate Office Visit 06/07/2020 3:20p [facility] Brittany Weiner NP F11.20 Opioid dependence, uncomplicated F33.1 Major depressive disorder, r ecurrent, moderate B18.2 Chronic viral hepatitis C J45.909 Unspecified asthma, uncompli cated Office Visit 04/15/2020 2:00p [facility] Sharla Yi NP F11.20 Opioid dependence, uncomplicated F33.1 Major depressive disorder, r ecurrent, moderate B18.2 Chronic viral hepatitis C J45.909 Unspecified asthma, uncompli cated Office Visit 04/08/2020 1:20p [facility] Sharla Slater NP F11.20 Opioid dependence, uncomplicated F33.1 Major depressive disorder, r ecurrent, moderate Office Visit 04/01/2020 1:20p [facility] Sharla Yi NP F11.20 Opioid dependence, uncomplicated F33.1 Major depressive disorder, r ecurrent, moderate Office Visit 03/25/2020 1:20p [facility] Sharla Yi NP F11.20 Opioid dependence, uncomplicated F33.1 Major depressive disorder, r ecurrent, moderate Office Visit 03/17/2020 2:40p [facility] Sharla Yi NP F11.20 Opioid dependence, uncomplicated F33.1 Major depressive disorder, r ecurrent, moderate B18.2 Chronic viral hepatitis C J45.909 Unspecified asthma, uncompli cated Z20.2 Contact w and exposure to in fect w a sexl mode of transmiss Assessments Date Code Description Provider 06/23/2020 F11.20 Opioid dependence, uncomplicated Yi, Sharla, JAVA DEVELOPER ANALYST 06/23/2020 F33.1 Major depressive disorder, recur rent, moderate Yi, Sharla, JAVA DEVELOPER ANALYST 06/16/2020 F11.20 Opioid dependence, uncomplicated Yi, Sharla, JAVA DEVELOPER ANALYST 06/16/2020 F33.1 Major depressive disorder, recur rent, moderate Yi, Sharla, JAVA DEVELOPER ANALYST 06/16/2020 F11.20 Opioid dependence, uncomplicated [facility] 06/07/2020 F11.20 Opioid dependence, uncomplicated Padden, Brittany, JAVA DEVELOPER ANALYST 06/07/2020 F33.1 Major depressive disorder, recur rent, moderate Padden, Brittany, JAVA DEVELOPER ANALYST 06/07/2020 B18.2 Chronic viral hepatitis C Padden , Brittany, JAVA DEVELOPER ANALYST 06/07/2020 J45.909 Unspecified asthma, uncomplicate d Padden, Brittany, JAVA DEVELOPER ANALYST 04/15/2020 F11.20 Opioid dependence, uncomplicated Yi, Sharla, JAVA DEVELOPER ANALYST 04/15/2020 F33.1 Major depressive disorder, recur rent, moderate Yi, Sharla, JAVA DEVELOPER ANALYST 04/15/2020 B18.2 Chronic viral hepatitis C Yi, Sharla, JAVA DEVELOPER ANALYST 04/15/2020 J45.909 Unspecified asthma, uncomplicate d Yi, Sharla, JAVA DEVELOPER ANALYST 04/08/2020 F11.20 Opioid dependence, uncomplicated Yi, Sharla, JAVA DEVELOPER ANALYST 04/08/2020 F33.1 Major depressive disorder, recur rent, moderate Yi, Sharla, JAVA DEVELOPER ANALYST 04/01/2020 F11.20 Opioid dependence, uncomplicated Yi, Sharla, JAVA DEVELOPER ANALYST 04/01/2020 F33.1 Major depressive disorder, recur rent, moderate Yi, Sharla, JAVA DEVELOPER ANALYST 03/25/2020 F11.20 Opioid dependence, uncomplicated Yi, Sharla, JAVA DEVELOPER ANALYST 03/25/2020 F33.1 Major depressive disorder, recur rent, moderate Yi, Sharla, JAVA DEVELOPER ANALYST 03/17/2020 F11.20 Opioid dependence, uncomplicated Yi, Sharla, JAVA DEVELOPER ANALYST 03/17/2020 F33.1 Major depressive disorder, recur rent, moderate Sharla Yi NP 03/17/2020 B18.2 Chronic viral hepatitis C Sharla Yi NP 03/17/2020 J45.909 Unspecified asthma, uncomplicate d Sharla Yi NP 03/17/2020 Z20.2 Contact with and (gusman spected) exposure to infections with a predominantly sexual mode of transmission Sharla Yi NP 03/17/2020 F11.20 Opioid dependence, uncomplicated [facility] 03/17/2020 Z20.2 Contact w and exposure to infect w a sexl mode of transmiss [facility] Plan of Treatment Future Appointment(s):* 07/21/2020 3:00 pm - Sharla Yi NP at [facility] Functional Status Description No Information Available Mental Status Description No Information Available Referrals Description No Information Available
--- OUTSIDE RECORDS SUMMARY | 2020-09-17 08:20 | CCD ---
Author Author [facility] Organization [facility] Address Unknown Phone Unavailable Care Team Providers Care Cell Attendant Helper Name Role Phone Meghan, Tanner Unavailable Unavailable Meghan, Tanner Unavailable Unavailable Meghan, Tanner Unavailable Unavailable Meghan, Tanner Unavailable Unavailable Meghan, Tanner Unavailable Unavailable Yeny Sepulveda MD Unavailable Unavailable Yeny Sepulveda MD Unavailable Unavailable Yeny Sepulveda MD Unavailable Unavailable Yeny Sepulveda MD Unavailable Unavailable Yeny Sepulveda MD Unavailable Unavailable Yeny Sepulveda MD Unavailable Unavailable Yeny Sepulveda MD Unavailable Unavailable Yeny Sepulveda MD Unavailable Unavailable Yeny Sepulveda MD Unavailable Unavailable Yeny Sepulveda MD Unavailable Unavailable Yeny Sepulveda MD Unavailable Unavailable Yeny Sepulveda MD Unavailable Unavailable Yeny Sepulveda MD Unavailable Unavailable Yeny Sepulveda MD Unavailable Unavailable Yeny Sepulveda MD Unavailable Unavailable Yeny Sepulveda MD Unavailable Unavailable Yeny Sepulveda MD Unavailable Unavailable Yeny Sepulveda MD Unavailable Unavailable Yeny Sepulveda MD Unavailable Unavailable Yeny Sepulveda MD Unavailable Unavailable Yeny Sepulveda MD Unavailable Unavailable Yeny Sepulveda MD Unavailable Unavailable Yeny Sepulveda MD Unavailable Unavailable Yeyn Sepulveda MD Unavailable Unavailable Yeny Sepulveda MD Unavailable Unavailable Yeny Sepulveda MD Unavailable Unavailable Yeny Sepulveda MD Unavailable Unavailable Yeny Sepulveda MD Unavailable Unavailable Yeny Sepulveda MD Unavailable Unavailable Yeny Sepulveda MD Unavailable Unavailable Yeny Sepulveda MD Unavailable Unavailable Yeny Sepulveda MD Unavailable Unavailable Yeny Sepulveda MD Unavailable Unavailable Yeny Sepulveda MD Unavailable Unavailable Yeny Sepulveda MD Unavailable Unavailable Yeny Sepulveda MD Unavailable Unavailable Yeny Sepulveda MD Unavailable Unavailable Yeny Sepulveda MD Unavailable Unavailable Yeny Sepulveda MD Unavailable Unavailable Yeny Sepulveda MD Unavailable Unavailable Yeny Sepulveda MD Unavailable Unavailable Yeny Sepulveda MD Unavailable Unavailable Yeny Sepulveda MD Unavailable Unavailable Yeny Sepulveda MD Unavailable Unavailable Yeny Sepulveda MD Unavailable Unavailable Yeny Sepulveda MD Unavailable Unavailable Yeny Sepulveda MD Unavailable Unavailable Yeny Sepulveda MD Unavailable Unavailable Yeny Sepulveda MD Unavailable Unavailable Yeny Sepulveda MD Unavailable Unavailable Yeny Sepulveda MD Unavailable Unavailable Yeny Sepulveda MD Unavailable Unavailable Yeny Sepulveda MD Unavailable Unavailable Yeny Sepulveda MD Unavailable Unavailable Yeny Sepulveda MD Unavailable Unavailable Yeny Sepulveda MD Unavailable Unavailable Yeny Sepulveda MD Unavailable Unavailable Yeny Sepulveda MD Unavailable Unavailable Yeny Sepulveda MD Unavailable Unavailable Yeny Sepulveda MD Unavailable Unavailable Yeny Sepulveda MD Unavailable Unavailable Yeny Sepulveda MD Unavailable Unavailable Yeny Sepulveda MD Unavailable Unavailable Yeny Sepulveda MD Unavailable Unavailable Yeny Sepulveda MD Unavailable Unavailable Yeny Sepulveda MD Unavailable Unavailable Yeny Sepulveda MD Unavailable Unavailable Yeny Sepulveda MD Unavailable Unavailable Yeny Sepulveda MD Unavailable Unavailable Yeny Sepulveda MD Unavailable Unavailable Yeny Sepulveda MD Unavailable Unavailable Yeny Sepulveda MD Unavailable Unavailable Yeny Sepulveda MD Unavailable Unavailable Yeny Sepulveda MD Unavailable Unavailable Yeny Sepulveda MD Unavailable Unavailable Yeny Sepulveda MD Unavailable Unavailable Yeny Sepulveda MD Unavailable Unavailable Yeny Sepulveda MD Unavailable Unavailable Yeny Sepulveda MD Unavailable Unavailable Yeny Sepulveda MD Unavailable Unavailable Yeny Sepulveda MD Unavailable Unavailable Yeny Sepulveda MD Unavailable Unavailable Yeny Sepulveda MD Unavailable Unavailable Yeny Sepulveda MD Unavailable Unavailable Yeny Sepulveda MD Unavailable Unavailable Yeny Sepulveda MD Unavailable Unavailable Yeny Sepulveda MD Unavailable Unavailable Yeny Sepulveda MD Unavailable Unavailable Yeny Sepulveda MD Unavailable Unavailable ScordoFaustina Cecily PA Unavailable Unavailable Scordo M Cecily PA Unavailable Unavailable Scordo, M Cecily PA Unavailable Unavailable Scordo, M Cecily PA Unavailable Unavailable Scordo, M Cecily PA Unavailable Unavailable Scordo, M Cecily PA Unavailable Unavailable Scordo, M Cecily PA Unavailable Unavailable Scordo, M Cecily PA Unavailable Unavailable Scordo, M Cecily PA Unavailable Unavailable Scordo, M Cecily PA Unavailable Unavailable Scordo, M Cecily PA Unavailable Unavailable Scordo, M Cecily PA Unavailable Unavailable Scordo, M Cecily PA Unavailable Unavailable Scordo, M Cecily PA Unavailable Unavailable Scordo, M Cecily PA Unavailable Unavailable Scordo, M Cecily PA Unavailable Unavailable Scordo, M Cecily PA Unavailable Unavailable Scordo, M Cecily PA Unavailable Unavailable Scordo, M Cecily PA Unavailable Unavailable Scordo, M Cecily PA Unavailable Unavailable Scordo, M Cecily PA Unavailable Unavailable Scordo, M Cecily PA Unavailable Unavailable Scordo, M Cecily PA Unavailable Unavailable Scordo, M Cecily PA Unavailable Unavailable Scordo, M Cecily PA Unavailable Unavailable Scordo, M Cecily PA Unavailable Unavailable Scordo, M Cecily PA Unavailable Unavailable Scordo, M Cecily PA Unavailable Unavailable Scordo, M Cecily PA Unavailable Unavailable Scordo, M Cecily PA Unavailable Unavailable Scordo, M Cecily PA Unavailable Unavailable Scordo, M Cecily PA Unavailable Unavailable Scordo, M Cecily PA Unavailable Unavailable Scordo, M Cecily PA Unavailable Unavailable Scordo, M Cecily PA Unavailable Unavailable Scordo, M Cecily PA Unavailable Unavailable Scordo, M Cecily PA Unavailable Unavailable Scordo, M Cecily PA Unavailable Unavailable Scordo, M Cecily PA Unavailable Unavailable Scordo, M Cecily PA Unavailable Unavailable Scordo, M Cecily PA Unavailable Unavailable Scordo, M Cecily PA Unavailable Unavailable Guerda, Crystal HEAD CD REACTOR OPERATOR Unavailable Unavailable Yeny Sepulveda MD Unavailable Unavailable Yeny Sepulveda MD Unavailable Unavailable Yeny Sepulveda MD Unavailable Unavailable Yeny Sepulveda MD Unavailable Unavailable Yeny Sepulveda MD Unavailable Unavailable Yeny Sepulveda MD Unavailable Unavailable Yeny Sepulveda MD Unavailable Unavailable Yeny Sepulveda MD Unavailable Unavailable Yeny Sepulveda MD Unavailable Unavailable Yeny Sepulveda MD Unavailable Unavailable Yeny Sepulveda MD Unavailable Unavailable Yeny Sepulveda MD Unavailable Unavailable Yeny Sepulveda MD Unavailable Unavailable Yeny Sepulveda MD Unavailable Unavailable Yeny Sepulveda MD Unavailable Unavailable Yeny Sepulveda MD Unavailable Unavailable Yeny Sepulveda MD Unavailable Unavailable Yeny Sepulveda MD Unavailable Unavailable Yeny Sepulveda MD Unavailable Unavailable Yeny Sepulveda MD Unavailable Unavailable Yeny Sepulveda MD Unavailable Unavailable Yeny Sepulveda MD Unavailable Unavailable Yeny Sepulveda MD Unavailable Unavailable Yeny Sepulveda MD Unavailable Unavailable Yeny Sepulveda MD Unavailable Unavailable Yeny Sepulveda MD Unavailable Unavailable Yeny Sepulveda MD Unavailable Unavailable Yeny Sepulveda MD Unavailable Unavailable Yeny Sepulveda MD Unavailable Unavailable Yeny Sepulveda MD Unavailable Unavailable Yeny Sepulveda MD Unavailable Unavailable Yeny Sepulveda MD Unavailable Unavailable Yeny Sepulveda MD Unavailable Unavailable Yeny Sepulveda MD Unavailable Unavailable Yeny Sepulveda MD Unavailable Unavailable Yeny Sepulveda MD Unavailable Unavailable Yeny Sepulveda MD Unavailable Unavailable Yeny Sepulveda MD Unavailable Unavailable Yeny Sepulveda MD Unavailable Unavailable Yeny Sepulveda MD Unavailable Unavailable Yeny Sepulveda MD Unavailable Unavailable Yeny Sepulveda MD Unavailable Unavailable Yeny Sepulveda MD Unavailable Unavailable Yeny Sepulveda MD Unavailable Unavailable Yeny Sepulveda MD Unavailable Unavailable Yeny Sepulveda MD Unavailable Unavailable Yeny Sepulveda MD Unavailable Unavailable Yeny Sepulveda MD Unavailable Unavailable Yeny Sepulveda MD Unavailable Unavailable Yeny Sepulveda MD Unavailable Unavailable Yeny Sepulveda MD Unavailable Unavailable Yeny Sepulveda MD Unavailable Unavailable Yeny Sepulveda MD Unavailable Unavailable Yeny Sepulveda MD Unavailable Unavailable Yeny Sepulveda MD Unavailable Unavailable Yeny Sepuvleda MD Unavailable Unavailable Yeny Sepulveda MD Unavailable Unavailable Yeny Sepulveda MD Unavailable Unavailable Yeny Sepulveda MD Unavailable Unavailable Yeny Sepulveda MD Unavailable Unavailable Yeny Sepulveda MD Unavailable Unavailable Yeny Sepulveda MD Unavailable Unavailable Yeny Sepulveda MD Unavailable Unavailable Yeny Sepulveda MD Unavailable Unavailable Yeny Sepulveda MD Unavailable Unavailable Yeny Sepulveda MD Unavailable Unavailable Yeny Sepulveda MD Unavailable Unavailable Yeny Sepulveda MD Unavailable Unavailable Yeny Sepulveda MD Unavailable Unavailable Yeny Sepulveda MD Unavailable Unavailable Yeny Sepulveda MD Unavailable Unavailable Yeny Sepulveda MD Unavailable Unavailable Yeny Sepulveda MD Unavailable Unavailable Yeny Sepulveda MD Unavailable Unavailable Yeny Sepulveda MD Unavailable Unavailable Yeny Sepulveda MD Unavailable Unavailable Yeny Sepulveda MD Unavailable Unavailable Yeny Sepulveda MD Unavailable Unavailable Yeny Sepulveda MD Unavailable Unavailable Yeny Sepulveda MD Unavailable Unavailable Yeny Sepulveda MD Unavailable Unavailable Yeny Sepulveda MD Unavailable Unavailable Yeny Sepulveda MD Unavailable Unavailable Yeny Sepulveda MD Unavailable Unavailable Yeny Sepulveda MD Unavailable Unavailable Yeny Sepulveda MD Unavailable Unavailable Yeny Sepulveda MD Unavailable Unavailable Yeny Sepulveda MD Unavailable Unavailable Yeny Sepulveda MD Unavailable Unavailable PADDEN, DANIEL STORE STOCK HELP Unavailable Unavailable PADDEN, DANIEL STORE STOCK HELP Unavailable Unavailable PADDEN, DANIEL STORE STOCK HELP Unavailable Unavailable PADDEN, DANIEL STORE STOCK HELP Unavailable Unavailable PADDEN, DANIEL STORE STOCK HELP Unavailable Unavailable PADDEN, DANIEL STORE STOCK HELP Unavailable Unavailable PADDEN, DANIEL STORE STOCK HELP Unavailable Unavailable PADDEN, DANIEL STORE STOCK HELP Unavailable Unavailable PADDEN, DANIEL STORE STOCK HELP Unavailable Unavailable PADDEN, DANIEL STORE STOCK HELP Unavailable Unavailable PADDEN, DANIEL STORE STOCK HELP Unavailable Unavailable PADDEN, DANIEL STORE STOCK HELP Unavailable Unavailable PADDEN, DANIEL STORE STOCK HELP Unavailable Unavailable PADDEN, DANIEL STORE STOCK HELP Unavailable Unavailable PADDEN, DANIEL STORE STOCK HELP Unavailable Unavailable PADDEN, DANIEL STORE STOCK HELP Unavailable Unavailable PADDEN, DANIEL STORE STOCK HELP Unavailable Unavailable PADDEN, DANIEL STORE STOCK HELP Unavailable Unavailable PADDEN, DANIEL STORE STOCK HELP Unavailable Unavailable Yi, E Sharla Unavailable Unavailable Yi, E Sharla Unavailable Unavailable Yi, E Sharla Unavailable Unavailable Yi, E Sharla Unavailable Unavailable Yi, E Sharla Unavailable Unavailable Yi, E Sharla Unavailable Unavailable Yi, E Sharla Unavailable Unavailable Yi, E Sharla Unavailable Unavailable Yi, E Sharla Unavailable Unavailable Yi, E Sharla Unavailable Unavailable Yi, E Sharla Unavailable Unavailable Yi, E Sharla Unavailable Unavailable Yi, E Sharla Unavailable Unavailable Yi, E Sharla Unavailable Unavailable Yi, E Sharla Unavailable Unavailable Yi, E Sharla Unavailable Unavailable King, Luisito Unavailable Unavailable King, Luisito Unavailable Unavailable King, Luisito Unavailable Unavailable King, Luisito Unavailable Unavailable King, Luisito Unavailable Unavailable Ikng, Luisito Unavailable Unavailable King, Luisito Unavailable Unavailable Rajeev HENRIQUEZ MD Unavailable Unavailable Rajeev HENRIQUEZ MD Unavailable Unavailable Rajeev HENRIQUEZ MD Unavailable Unavailable Rajeev HENRIQUEZ MD Unavailable Unavailable Rajeev HENRIQUEZ MD Unavailable Unavailable Rajeev HENRIQUEZ MD Unavailable Unavailable Rajeev HENRIQUEZ MD Unavailable Unavailable Rajeev HENRIQUEZ MD Unavailable Unavailable Rajeev HENRIQUEZ MD Unavailable Unavailable Rajeev HENRIQUEZ MD Unavailable Unavailable Rajeev HENRIQUEZ MD Unavailable Unavailable Rajeev HENRIQUEZ MD Unavailable Unavailable Rajeev HENRIQUEZ MD Unavailable Unavailable HENRIQUEZ, P GAUTAM MD Unavailable Unavailable HENRIQUEZ, P GAUTAM MD Unavailable Unavailable HENRIQUEZ, P GAUTAM MD Unavailable Unavailable HENRIQUEZ, P GAUTAM MD Unavailable Unavailable HENRIQUEZ, P GAUTAM MD Unavailable Unavailable HENRIQUEZ, P GAUTAM MD Unavailable Unavailable HENRIQUEZ, P GAUTAM MD Unavailable Unavailable HENRIQUEZ, P GAUTAM MD Unavailable Unavailable HENRIQUEZ, P GAUTAM MD Unavailable Unavailable Torres Candelario MD Unavailable Unavailable Re-disclosure Warning The records that you are about to access may contain information from federally-assisted alcohol or drug abuse programs. If such information is present, then the following federally mandated warning applies: This information has been disclosed to you from records protected by federal confidentiality rules (42 CFR part 2). The federal rules prohibit you from making any further disclosure of this information unless further disclosure is expressly permitted by the written consent of the person to whom it pertains or as otherwise permitted by 42 CFR part 2. A general authorization for the release of medical or other information is NOT sufficient for this purpose. The Federal rules restrict any use of the information to criminally investigate or prosecute any alcohol or drug abuse patient.The records that you are about to access may contain highly sensitive health information, the redisclosure of which is protected by Article 27-F of the [facility] Public Health law. If you continue you may have access to information: Regarding HIV / AIDS; Provided by facilities licensed or operated by the [facility] Office of Mental Health; or Provided by the [facility] Office for People With Developmental Disabilities. If such information is present, then the following [facility] mandated warning applies: This information has been disclosed to you from confidential records which are protected by state law. State law prohibits you from making any further disclosure of this information without the specific written consent of the person to whom it pertains, or as otherwise permitted by law. Any unauthorized further disclosure in violation of state law may result in a fine or mcfp sentence or both. A general authorization for the release of medical or other information is NOT sufficient authorization for further disc losure. Allergies and Adverse Reactions Type Description Substance Reaction Status Data Source(s ) Drug allergy No Known Allergies No Known Allergies [facility] Allergy to substance Allergy to substance Allergy to substance [facility] ([facility]) Family History Family Member Name Family Member Gender Family Member Status Date o f Status Description Data Source(s) Unknown Male Diagnosis 05/18/2018 12:00:00 AM EDT [facility] ([facility]) Encounters Encounter Providers Location Date Indications Data Source(s ) Yusuf Sepulveda MD: [address] [place] [address], Ph. Attender: Yusuf Sepulveda MD [facility] Medical 08/30/2020 12:00:00 AM EST [facility] ([facility]) Yusuf Sepulveda MD: [address] [place] [address], Ph. Attender: Yusuf Sepulveda MD [facility] Medical 08/19/2020 12:00:00 AM EST [facility] ([facility]) Yusuf Sepulveda MD: [address] [place] [address], Ph. Attender: Yusuf Sepulveda MD [facility] Medical 08/19/2020 12:00:00 AM EST [facility] ([facility]) Yusuf Sepulveda MD: [address] [place] [address], Ph. Attender: Yusuf Sepulveda MD [facility] Medical 08/11/2020 12:00:00 AM EST [facility] ([facility]) Yusuf Sepulveda MD: [address] [place] [address], Ph. Attender: Yusuf Sepulveda MD [facility] Medical 08/11/2020 12:00:00 AM EST [facility] ([facility]) Yusuf Sepulveda MD: [address] [place] [address], Ph. Attender: Yusuf Sepulveda MD [facility] Medical 08/11/2020 12:00:00 AM EST [facility] ([facility]) Yusuf Sepulveda MD: [address] [place] [address], Ph. Attender: Yusuf Sepulveda MD [facility] Medical 08/02/2020 12:00:00 AM EST [facility] ([facility]) Yusuf Sepulveda MD: [address] [place] [address], Ph. Attender: Yusuf Sepulveda MD [facility] Medical 08/02/2020 12:00:00 AM EST [facility] ([facility]) Yusuf Sepulveda MD: [address] [place] [address], Ph. Attender: Yusuf Sepulveda MD [facility] Medical 08/02/2020 12:00:00 AM EST [facility] ([facility]) Yusuf Sepulveda MD: [address] [place] [address], Ph. Attender: Yusuf Sepulveda MD [facility] Medical 08/02/2020 12:00:00 AM EST [facility] ([facility]) Outpatient Attender: Sharla Robison 07/21/2020 02:20:00 PM EST [facility] ([facility]) Outpatient Attender: Sharla Robison 07/07/2020 01:00:00 PM EST [facility] ([facility]) Cecily Frazier PA-C: [address], [place] [address], Ph. Attender: Cecily ROBERTS [facility] 07/02/2020 12:00:00 AM EST [facility] ([facility]) Cecily Frazier PA-C: [address], [place] [address], Ph. Attender: Cecily ROBERTS [facility] Medical 07/02/2020 12:00:00 AM EST [facility] ([facility]) Cecily Frazier PA-C: [address], [place] [address], Ph. Attender: Cecily ROBERTS [facility] Medical 07/02/2020 12:00:00 AM EST [facility] ([facility]) Cecily Frazier PA-C: [address], [place] [address], Ph. Attender: Cecily ROBERTS [facility] 07/02/2020 12:00:00 AM EST [facility] ([facility]) Cecily Frazier PA-C: [address] [place] [address], Ph. Attender: Cecily ROBERTS [facility] 07/02/2020 12:00:00 AM EST [facility] ([facility]) Outpatient Attender: Sharla Robison 06/23/2020 01:00:00 PM EST [facility] ([facility]) Outpatient Attender: Sharla Robison 06/16/2020 02:20:00 PM EDT [facility] ([facility]) Outpatient Attender: Yusuf Sepulveda MD 06/15/2020 03:23:00 PM EDT [facility] Outpatient Attender: Yusuf Sepulveda MD 06/07/2020 04:17:01 PM EDT [facility] Outpatient Attender: DANIEL Robison 06/07/2020 03:20:0 0 PM EDT [facility] ([facility]) Outpatient Attender: Yusuf Sepulveda MD 05/31/2020 03:38:00 PM EDT [facility] Outpatient Attender: Yusuf Sepulveda MD 05/31/2020 03:37:01 PM EDT [facility] Outpatient Attender: Yusuf Sepulveda MD 05/31/2020 03:35:00 PM EDT [facility] Outpatient Attender: Yusuf Sepulveda MD 05/31/2020 03:34:01 PM EDT [facility] Outpatient Attender: Yusuf Sepulveda MD 05/31/2020 12:02:01 PM EDT [facility] Outpatient Attender: Yusuf Sepulveda MD 05/31/2020 12:00:12 PM EDT [facility] Outpatient Attender: Yusuf Sepulveda MD 05/31/2020 10:56:00 AM EDT [facility] Outpatient Admitter: GAUTAM HENRIQUEZ MDReferrer: GAUTAM KING.[facility] 04/20/2020 12:00:00 AM EDT [facility] Outpatient Attender: Sharla Robison 04/15/2020 02:00:00 PM EDT [facility] ([facility]) Outpatient Attender: Sharla Robison 04/08/2020 01:20:00 PM EDT [facility] ([facility]) Outpatient Attender: Sharla Robison 04/01/2020 01:20:00 PM EDT [facility] ([facility]) Outpatient Attender: Sharla Robison 03/25/2020 01:20:00 PM EDT [facility] ([facility]) Outpatient Admitter: GAUTAM HENRIQUEZ MDReferrer: GAUTAM KING.[facility] 03/20/2020 12:00:00 AM EDT [facility] Outpatient Attender: Sharla Robison 03/17/2020 02:40:00 PM EDT [facility] ([facility]) Outpatient Admitter: GAUTAM HENRIQUEZ MDReferrer: GAUTAM KING.[facility] 02/18/2020 12:00:00 AM EDT [facility] Outpatient Admitter: GAUTAM HENRIQUEZ MDReferrer: GAUTAM KING.[facility] 01/19/2020 12:00:00 AM EDT [facility] Outpatient Attender: Vickie LERMA 12/30/2019 09:00:0 0 AM EDT [facility] Inpatient Attender: Silvano Hooks tender: Tanner ChristiansonAdmitter: Silvano Candelario MD 12/21/2019 09:41:00 AM EDT - 12/24/2019 11:48:00 AM EDT R45.851 [facility] R45.851 Patient discharged. Outpatient Attender: Silvano Foreman mitter: Silvano Candelario MDConsultant: Silvano Candelario MD 12/21/2019 09:41:00 AM EDT R45.851 [facility] R45.851 Outpatient Attender: Silvano Foreman mitter: Silvano Candelario MDConsultant: Silvano Candelario MD 12/21/2019 09:41:00 AM EDT R45.851 [facility] R45.851 Outpatient Attender: Silvano Foreman mitter: Silvano Candelario MDConsultant: Silvano Candelario MD 12/21/2019 09:41:00 AM EDT R45.851 [facility] R45.851 Outpatient Admitter: GAUTAM HENRIQUEZ MDReferrer: GAUTAM KING.[facility] 12/19/2019 12:00:00 AM EDT [facility] Emergency Attender: Luisito Fernando 11/23/2019 06:50:00 PM EDT - 11/23/2019 07:29:00 PM EDT [facility]-Wheezing,ran out of his inhaler [facility]-Wheezing,ran out of his inhaler Patient discharged. Outpatient Admitter: GAUTAM HENRIQUEZ MDReferrer: GAUTAM KING.[facility] 11/19/2019 12:00:00 AM EDT [facility] Outpatient Admitter: GAUTAM HENRIQUEZ MDReferrer: GAUTAM KING.[facility] 10/19/2019 12:00:00 AM EST [facility] Outpatient Admitter: GAUTAM HENRIQUEZ MDReferrer: GAUTAM KING.[facility] 09/20/2019 12:00:00 AM EST [facility] Outpatient Admitter: GAUTAM HENRIQUEZ MDReferrer: GAUTAM KING.[facility] 08/20/2019 12:00:00 AM EST [facility] Outpatient Admitter: GAUTAM HENRIQUEZ MDReferrer: GAUTAM KING.[facility] 07/20/2019 12:00:00 AM EST [facility] Medications Medication Brand Name Start Date Product Form Dose Route Admi nistrative Instructions Pharmacy Instructions Status Indications Reaction Description Data Source(s) 12 HR Bupropion Hydrochloride 150 MG Extended Release Oral Tablet Bupropion HCL ER (SR) 04/08/2020 12:00:00 AM EDT completed [facility] ([facility]) 12 HR Bupropion Hydrochloride 150 MG Extended Release Oral Tablet Bupropion Hydrochloride ER (SR) 04/08/2020 12:00:00 AM EDT ORAL a ctive [facility] ([facility]) 60 ACTUAT Budesonide 0.16 MG/ACTUAT / fo rmoterol fumarate 0.0045 MG/ACTUAT Metered Dose Inhaler Budesonide/Formoterol Fumarate Dihydrate 03/17/2020 12:00:00 AM EDT RESPIRATORY active [facility] ([facility]) Bupropion Hydrochloride 75 MG Oral Tablet Bupropion HCL 03/17/2020 12:00:00 AM EDT completed [facility] ([facility]) 300 mg 12/24/2019 12:00:00 AM EDT tablet 60 TAKE 1/2 TABLET BY MOUTH FOUR TIMES A DAY TAKE 1/2 TABLET BY MOUTH FOUR TIMES A DAY SOLD: 12/24/2019 [facility] 800-160 mg 12/24/2019 12:00:00 AM EDT tablet 14 TAKE ONE TABLET BY MOUTH TWICE A DAY FOR 7 DAYS TAKE ONE TABLET BY MOUTH TWICE A DAY FOR 7 DAYS SOLD: 12/24/2019 [facility] 8-2 mg 09/22/2019 12:00:00 AM EST film [address] PLACE ONE FILM UNDER THE TONGUE EVERY DAY DIRECTED MAXIMUM DAILY DOSE = 1 PLACE ONE FILM UNDER THE TONGUE EVERY DAY DIRECTED MAXIMUM DAILY DOSE = 1 SOLD: 09/22/2019 [facility] 12-3 mg 08/25/2019 12:00:00 AM EST film 7 PLACE ONE FILM UNDER THE TONGUE EVERY DAY DIRECTED MAXIMUM DAILY DOSE = ONE FILM PLACE ONE FILM UNDER THE TONGUE EVERY DAY DIRECTED MAXIMUM DAILY DOSE = ONE FILM SOLD: 08/25/2019 [facility] 8-2 mg 08/11/2019 12:00:00 AM EST film 21 PLACE 1 AND 1/2 FILMS ONCE DAILY UNDER THE TONGUE DIRECTED MAXIMUM DAILY DOSE = 1 AND 1/[address] 1 AND 1/2 FILMS ONCE DAILY UNDER THE TONGUE DIRECTED MAXIMUM DAILY DOSE = 1 AND 1/2 FILMS SOLD: 08/11/2019 [facility] 12-3 mg 08/04/2019 12:00:00 AM EST film 7 PLACE ONE-HALF FILM UNDER THE TONGUE TWICE A DAY DIRECTED MAXIMUM DAILY DOSE = ONE FILM PLACE ONE-HALF FILM UNDER THE TONGUE TWICE A DAY DIRECTED MAXIMUM DAILY DOSE = ONE FILM SOLD: 08/04/2019 [facility] 50 mcg/actuation 07/24/2019 12:00:00 AM EST spray,suspension 16 SPRAY 2 SPRAYS IN EACH NOSTRIL EVERY DAY SPRAY 2 SPRAYS IN EACH NOSTRIL EVERY DAY SOLD: 07/25/2019 [facility] 90 mcg/actuation 07/24/2019 12:00:00 AM EST HFA aerosol inha ler 6 INHALE 2 PUFFS BY MOUTH FOUR TIMES A DAY NEEDED INHALE 2 PUFFS BY MOUTH FOUR TIMES A DAY NEEDED SOLD: 07/25/2019 [facility] 60 ACTUAT Albuterol 0.09 MG/ACTUAT Metered Dose Inhaler Albu terol Sulfate HFA 07/24/2019 12:00:00 AM EST active [facility] ([facility]) Fluticasone Propionate Fluticasone Propionate 07/24/2019 12:00:[address] active [facility] ([facility]) 150 mg 07/24/2019 12:00:00 AM EST tablet extended release 24 hr 30 TAKE ONE TABLET BY MOUTH EVERY DAY TAKE ONE TABLET BY MOUTH EVERY DAY SOLD: 07/25/2019 [facility] 8-2 mg 07/24/2019 12:00:00 AM EST film 11 DISSOLVE 1 AND 1/2 FILM UNDER THE TONGUE EVERY DAY MAXIMUM DAILY DOSE = 1 AND 1/2 FILM DISSOLVE 1 AND 1/2 FILM UNDER THE TONGUE EVERY DAY MAXIMUM DAILY DOSE = 1 AND 1/2 FILM SOLD: 07/25/2019 [facility] Buprenorphine 8 MG / Naloxone 2 MG Oral Strip buprenorphine 8 mg-naloxone [address] ONE AND ONE HALF FILMS UNDER THE TONGUE EVERY DAY MAXIMUM DAILY DOSE 1 1/2 FILMS buprenorphine 8 mg-naloxone 2 mg subling ual film PLACE ONE AND ONE HALF FILMS UNDER THE TONGUE EVERY DAY MAXIMUM DAILY DOSE 1 1/2 FILMS completed bupreno rphine 8 MG / naloxone 2 MG Sublingual Film [facility] ([facility]) Sulfamethoxazole 800 MG / Trimethoprim 1 60 MG Oral Tablet sulfamethoxazole 800 mg-trimethoprim 160 mg tablet TAKE ONE TABLET BY MOUTH TWICE A DAY FOR 7 DAYS sulfamethoxazole 800 mg-trimethoprim 160 mg tablet TAKE ONE TABLET BY MOUTH TWICE A DAY FOR 7 DAYS completed sulfamethoxazole 800 MG / trimethoprim 160 MG Oral Tablet [facility] ([facility]) oxcarbazepine 300 MG Oral Tablet oxcarba zepine 300 mg tablet TAKE 1/2 TABLET BY MOUTH FOUR TIMES A DAY oxcarbazepine 300 mg tablet TAKE 1/2 TAB LET BY MOUTH FOUR TIMES A DAY completed oxcarbazep ine 300 MG Oral Tablet [facility] ([facility]) 24 HR Bupropion Hydrochloride 150 MG Ext ended Release Oral Tablet bupropion HCl XL 150 mg 24 hr tablet, extended release TAKE ONE TABLET BY MOUTH EVERY DAY bupropion HCl XL 150 mg 24 hr tablet, extended release TAKE ONE TABLET BY MOUTH EVERY DAY completed 24 H R bupropion hydrochloride 150 MG Extended Release Oral Tablet [facility] ([facility]) oxcarbazepine 300 MG Oral Tablet oxcarba zepine 300 mg tablet TAKE 1/2 TABLET BY MOUTH FOUR TIMES A DAY oxcarbazepine 300 mg tablet TAKE 1/2 TAB LET BY MOUTH FOUR TIMES A DAY completed oxcarbazep ine 300 MG Oral Tablet [facility] ([facility]) Bupropion Hydrochloride 75 MG Oral Table t bupropion HCl 75 mg tablet TAKE ONE TABLET BY MOUTH EVERY DAY FOR 7 DAYS THEN 1 TWO TIMES A DAY bupropion HCl 75 mg tablet TAKE ONE TABLET BY MOUTH EVERY DAY FOR 7 DAYS THEN 1 TWO TIMES A DAY completed bupropion hydrochlorid e 75 MG Oral Tablet [facility] ([facility]) Sulfamethoxazole 800 MG / Trimethoprim 1 60 MG Oral Tablet sulfamethoxazole 800 mg-trimethoprim 160 mg tablet TAKE ONE TABLET BY MOUTH TWICE A DAY FOR 7 DAYS sulfamethoxazole 800 mg-trimethoprim 160 mg tablet TAKE ONE TABLET BY MOUTH TWICE A DAY FOR 7 DAYS completed sulfamethoxazole 800 MG / trimethoprim 160 MG Oral Tablet [facility] ([facility]) oxcarbazepine 300 MG Oral Tablet oxcarba zepine 300 mg tablet TAKE 1/2 TABLET BY MOUTH FOUR TIMES A DAY oxcarbazepine 300 mg tablet TAKE 1/2 TAB LET BY MOUTH FOUR TIMES A DAY completed oxcarbazep ine 300 MG Oral Tablet [facility] ([facility]) oxcarbazepine 300 MG Oral Tablet oxcarba zepine 300 mg tablet TAKE 1/2 TABLET BY MOUTH FOUR TIMES A DAY oxcarbazepine 300 mg tablet TAKE 1/2 TAB LET BY MOUTH FOUR TIMES A DAY completed oxcarbazep ine 300 MG Oral Tablet [facility] ([facility]) oxcarbazepine 300 MG Oral Tablet oxcarba zepine 300 mg tablet TAKE 1/2 TABLET BY MOUTH FOUR TIMES A DAY oxcarbazepine 300 mg tablet TAKE 1/2 TAB LET BY MOUTH FOUR TIMES A DAY completed oxcarbazep ine 300 MG Oral Tablet [facility] ([facility]) Sulfamethoxazole 800 MG / Trimethoprim 1 60 MG Oral Tablet sulfamethoxazole 800 mg-trimethoprim 160 mg tablet TAKE ONE TABLET BY MOUTH TWICE A DAY FOR 7 DAYS sulfamethoxazole 800 mg-trimethoprim 160 mg tablet TAKE ONE TABLET BY MOUTH TWICE A DAY FOR 7 DAYS completed sulfamethoxazole 800 MG / trimethoprim 160 MG Oral Tablet [facility] ([facility]) Bupropion Hydrochloride 75 MG Oral Table t bupropion HCl 75 mg tablet TAKE ONE TABLET BY MOUTH EVERY DAY FOR 7 DAYS THEN 1 TWO TIMES A DAY bupropion HCl 75 mg tablet TAKE ONE TABLET BY MOUTH EVERY DAY FOR 7 DAYS THEN 1 TWO TIMES A DAY completed bupropion hydrochlorid e 75 MG Oral Tablet [facility] ([facility]) 24 HR Bupropion Hydrochloride 150 MG Ext ended Release Oral Tablet bupropion HCl XL 150 mg 24 hr tablet, extended release TAKE ONE TABLET BY MOUTH EVERY DAY bupropion HCl XL 150 mg 24 hr tablet, extended release TAKE ONE TABLET BY MOUTH EVERY DAY completed 24 H R bupropion hydrochloride 150 MG Extended Release Oral Tablet [facility] ([facility]) Sulfamethoxazole 800 MG / Trimethoprim 1 60 MG Oral Tablet sulfamethoxazole 800 mg-trimethoprim 160 mg tablet TAKE ONE TABLET BY MOUTH TWICE A DAY FOR 7 DAYS sulfamethoxazole 800 mg-trimethoprim 160 mg tablet TAKE ONE TABLET BY MOUTH TWICE A DAY FOR 7 DAYS completed sulfamethoxazole 800 MG / trimethoprim 160 MG Oral Tablet [facility] ([facility]) 24 HR Bupropion Hydrochloride 150 MG Ext ended Release Oral Tablet bupropion HCl XL 150 mg 24 hr tablet, extended release TAKE ONE TABLET BY MOUTH EVERY DAY bupropion HCl XL 150 mg 24 hr tablet, extended release TAKE ONE TABLET BY MOUTH EVERY DAY completed 24 H R bupropion hydrochloride 150 MG Extended Release Oral Tablet [facility] ([facility]) 24 HR Bupropion Hydrochloride 150 MG Ext ended Release Oral Tablet bupropion HCl XL 150 mg 24 hr tablet, extended release TAKE ONE TABLET BY MOUTH EVERY DAY bupropion HCl XL 150 mg 24 hr tablet, extended release TAKE ONE TABLET BY MOUTH EVERY DAY completed 24 H R bupropion hydrochloride 150 MG Extended Release Oral Tablet [facility] ([facility]) Bupropion Hydrochloride 75 MG Oral Table t bupropion HCl 75 mg tablet TAKE ONE TABLET BY MOUTH EVERY DAY FOR 7 DAYS THEN 1 TWO TIMES A DAY bupropion HCl 75 mg tablet TAKE ONE TABLET BY MOUTH EVERY DAY FOR 7 DAYS THEN 1 TWO TIMES A DAY completed bupropion hydrochlorid e 75 MG Oral Tablet [facility] ([facility]) Bupropion Hydrochloride 75 MG Oral Table t bupropion HCl 75 mg tablet TAKE ONE TABLET BY MOUTH EVERY DAY FOR 7 DAYS THEN 1 TWO TIMES A DAY bupropion HCl 75 mg tablet TAKE ONE TABLET BY MOUTH EVERY DAY FOR 7 DAYS THEN 1 TWO TIMES A DAY completed bupropion hydrochlorid e 75 MG Oral Tablet [facility] ([facility]) Bupropion Hydrochloride 75 MG Oral Table t bupropion HCl 75 mg tablet TAKE ONE TABLET BY MOUTH EVERY DAY FOR 7 DAYS THEN 1 TWO TIMES A DAY bupropion HCl 75 mg tablet TAKE ONE TABLET BY MOUTH EVERY DAY FOR 7 DAYS THEN 1 TWO TIMES A DAY completed bupropion hydrochlorid e 75 MG Oral Tablet [facility] ([facility]) Sulfamethoxazole 800 MG / Trimethoprim 1 60 MG Oral Tablet sulfamethoxazole 800 mg-trimethoprim 160 mg tablet TAKE ONE TABLET BY MOUTH TWICE A DAY FOR 7 DAYS sulfamethoxazole 800 mg-trimethoprim 160 mg tablet TAKE ONE TABLET BY MOUTH TWICE A DAY FOR 7 DAYS completed sulfamethoxazole 800 MG / trimethoprim 160 MG Oral Tablet [facility] ([facility]) 24 HR Bupropion Hydrochloride 150 MG Ext ended Release Oral Tablet bupropion HCl XL 150 mg 24 hr tablet, extended release TAKE ONE TABLET BY MOUTH EVERY DAY bupropion HCl XL 150 mg 24 hr tablet, extended release TAKE ONE TABLET BY MOUTH EVERY DAY completed 24 H R bupropion hydrochloride 150 MG Extended Release Oral Tablet [facility] ([facility]) Insurance Providers Payer name Policy type / Coverage type Policy ID Covered green party ID Covered green party's relationship to rivas Policy Rivas Plan Information DARIANA [id number] SP [id number] Managed Care [place] P UNAVAILABLE S UNAVAILABLE Medicaid S UNAVAILABLE S UNAVAILA BLE DARIANA MEDICAID [id number] Kaitlin [id number] MEDICAID [id number] Kaitlin [id number] SELF PAY DARIANA [id number] SP [id number] DARIANA [id number] SP [id number] SELF PAY MEDICAID [facility] [id number] SP BV [id number] MEDICAID [facility] [id number] SP BV [id number] SELF PAY MEDICAID [facility] [id number] SP [id number] SELF PAY MEDICAID [facility] [id number] SP BV [id number] DARIANA [id number] SP [id number] Medicaid [id number] SELF PAY MEDICAID [facility] [id number] SP BV [id number] STPP Wrap [id number] [facility] [id number] SELF PAY MEDICAID [facility] [id number] SP BV [id number] MEDICAID [facility] [id number] SP BV [id number] MEDICAID [facility] [id number] SP BV [id number] Medicaid of [place] Other 0 Self 0 Medicaid of [place] Other 0 Self 0 Medicaid of [place] Other 0 Self 0 Medicaid of [place] Other 0 Self 0 MEDICAID [facility] [id number] SP [id number] Medicaid of [place] Other 0 Self 0 Medicaid of [place] Other 0 Self 0 Medicaid of [place] Other 0 Self 0 Medicaid of [place] Other 0 Self 0 Medicaid of [place] Other 0 Self 0 Medicaid of [place] Other 0 Self 0 Medicaid of [place] Other 0 Self 0 Medicaid of [place] Other 0 Self 0 Medicaid of [place] Other 0 Self 0 Medicaid of [place] Other 0 Self 0 Medicaid of [place] Other 0 Self 0 Medicaid of [place] Other 0 Self 0 Medicaid of [place] Other 0 Self 0 Medicaid of [place] Other 0 Self 0 [facility] COMMUNITY PLAN [id number] SP [id number] Medicaid of [place] Other 0 Self 0 Medicaid of [place] Other 0 Self 0 Medicaid of [place] Other 0 Self 0 Medicaid of [place] Other 0 Self 0 Medicaid of [place] Other 0 Self 0 Medicaid of [place] Other 0 Self 0 Medicaid of [place] Other 0 Self 0 [facility] [id number] [facility] COMMUNITY PLAN [id number] SP [id number] SELF PAY UNAVAILABLE SP UNAVAILA BLE [facility] COMMUNITY PLAN [id number] SP [id number] [facility] COMMUNITY PLAN [id number] SP [id number] MEDICAID [facility] [id number] SP [id number] MEDICAID [facility] [id number] SP BV [id number] [facility] PL [id number] SP [id number] [facility] PL [id number] SP [id number] [facility] [id number] SP [id number] Problems, Conditions, and Diagnoses Code Display Name Description Problem Type Effective Dates Data Source(s) 950888828 Gastroesophageal reflux disease without esophagitis Gastroesophageal Reflux Disease without Esophagitis Problem 08/30/2020 12:00:00 AM SAIRA LOWRY ([facility]) 998119033 Opioid dependence in remission Opioid Dependence in Re mission Problem 08/02/2020 12:00:00 AM EST [facility] ([facility]) 022774997 Opioid dependence in remission Opioid Dependence in Re mission Problem 08/02/2020 12:00:00 AM EST [facility] ([facility]) 553441577 Opioid dependence in remission Opioid Dependence in Re mission Problem 08/02/2020 12:00:00 AM EST [facility] ([facility]) 129481186 Opioid dependence in remission Opioid Dependence in Re mission Problem 08/02/2020 12:00:00 AM EST [facility] ([facility]) [id number] Asthma Asthma Problem 07/02/2020 12:00:00 AM SAIRA Marinelli [facility] ([facility]) [id number] Asthma Asthma Problem 07/02/2020 12:00:00 AM ES Isis [facility] ([facility]) [id number] Asthma Asthma Problem 07/02/2020 12:00:00 AM ES Isis [facility] ([facility]) 296501707 Asthma Asthma Problem 07/02/2020 12:00:00 AM ES Isis [facility] ([facility]) [id number] Asthma Asthma Problem 07/02/2020 12:00:00 AM SAIRA LOWRY ([facility]) K08.530 Fractured dental restorative material wi thout loss of material Fractured dental restorative material without loss of material 1 12:00:06 PM EDT [facility] F19.94 Other psychoactive substance use, unspecified with psychoactive substance-induced mood disorder F19.94 - Other psychoactive substance us e, unspecified with psychoactive substance-induced mood disorder Diagnosis 12/21/2019 09:41:00 AM EDT [facility] B18.2 Chronic viral hepatitis C B18.2 - Chronic viral hepati tis C Diagnosis 12/21/2019 09:41:00 AM EDT [facility] J45.20 Mild intermittent asthma, uncomplicated J45.20 - Mild intermittent asthma, uncomplicated Diagnosis 12/21/2019 09:41:00 AM [facility]T [facility] th I80.9 Phlebitis and thrombophlebitis of unspec ified site I80.9 - Phlebitis and thrombophlebitis of unspecified site Diagnosis 12/21/2019 09:41:00 AM EDT [facility] L03.113 Cellulitis of right upper limb L03.113 - Celluli tis of right upper limb Diagnosis 12/21/2019 09:41:00 AM [facility] Z13.9 Encounter for screening, unspecified Z13 .9 - Encounter for screening, unspecified Diagnosis 12/21/2019 09:41:00 AM EDT [facility] R06.2 Wheezing R06.2 - Wheezing Diagnosis 11/23/2019 06:50:00 PM [facility] Surgeries/Procedures Procedure Description Date Indications Data Source(s) UNLISTED PROCEDURE DENTOALVEOLAR STRUCTURES Dental Surgery P rocedure 08/09/2020 12:00:00 AM EST [facility] ([facility]) UNLISTED PROCEDURE DENTOALVEOLAR STRUCTURES Dental Surgery P rocedure 08/09/2020 12:00:00 AM EST [facility] ([facility]) UNLISTED PROCEDURE DENTOALVEOLAR STRUCTURES Dental Surgery P rocedure 08/09/2020 12:00:00 AM EST [facility] ([facility]) Results ID Date Data Source [id number] 08/19/2020 10:36:00 AM EST [facility] ([facility]) Name Value Range Interpretation Code Description Data Balbina rce(s) Supporting Document(s) GC carboxy THC >300 cutoff=10 normal GC Carboxy THC [facility] ([facility]) cannabinoid positive . Abnormal (applies to non-numeric re sults) Cannabinoid [facility] ([facility]) ID Date Data Source [id number] 08/19/2020 10:36:00 AM EST [facility] ([facility]) Name Value Range Interpretation Code Description Data Balbina rce(s) Supporting Document(s) amphetamines urine reflex negative negative normal Amphetamin es Urine Reflex [facility] ([facility]) barbiturates urine reflex negative negative normal Barbiturat es Urine Reflex [facility] ([facility]) opiates urine reflex negative negative normal Opiates Urine R eflex [facility] ([facility]) benzodiazepines urine reflex negative negative normal Benzodiazepines Urine Reflex [facility] ([facility]) cannabinoids urine reflex pending confirmation negative Above h igh normal Cannabinoids Urine Reflex [facility] ([facility]) methadone urine reflex negative negative normal Methadone Uri ne Reflex [facility] ([facility]) cocaine metabolite urine refle negative negative normal Cocaine Metabolite Urine Refle [facility] ([facility]) phencyclidine urine reflex negative negative normal Phencycli dine Urine Reflex [facility] ([facility]) ID Date Data Source [id number] 08/11/2020 03:20:00 PM EST [facility] ([facility]) Name Value Range Interpretation Code Description Data Balbina rce(s) Supporting Document(s) ID Date Data Source [id number] 08/11/2020 03:20:00 PM EST [facility] ([facility]) Name Value Range Interpretation Code Description Data Balbina rce(s) Supporting Document(s) ID Date Data Source [id number] 08/02/2020 02:40:00 PM EST [facility] ([facility]) Name Value Range Interpretation Code Description Data Balbina rce(s) Supporting Document(s) ID Date Data Source [id number] 08/02/2020 02:40:00 PM EST [facility] ([facility]) Name Value Range Interpretation Code Description Data Balbina rce(s) Supporting Document(s) ID Date Data Source [id number] 08/02/2020 02:40:00 PM EST [facility] ([facility]) Name Value Range Interpretation Code Description Data Balbina rce(s) Supporting Document(s) ID Date Data Source [id number] 06/16/2020 02:17:00 PM EDT [facility] ([facility]) Name Value Range Interpretation Code Description Data Balbina rce(s) Supporting Document(s) Buprenorphine Ur 16 ng/mL [facility] ([facility]) TEST FOR BURPERNORPHRINE Buprenorphine Glucu Laboratory test result [facility] ([facility]) TEST FOR BURPERNORPHRINE Norbupr Glucuronide 723 [facility] ([facility]) TEST FOR BURPERNORPHRINE Norbuprenorphine Ur 116 ng/mL [facility] ([facility]) TEST FOR BURPERNORPHRINE Naloxone,Urine Laboratory test result ME DENT ([facility]) TEST FOR BURPERNORPHRINE ID Date Data Source [id number] 06/16/2020 02:17:00 PM EDT [facility] ([facility]) Name Value Range Interpretation Code Description Data Balbina rce(s) Supporting Document(s) Amphetamines,Urine Laboratory test result [facility] ([facility]) TEST FOR BURPERNORPHRINE Barbiturates,Urine Laboratory test result [facility] ([facility]) TEST FOR BURPERNORPHRINE Benzodiazepines, Urine Laboratory test result [facility] ([facility]) TEST FOR BURPERNORPHRINE Bupernorphrine/Norbu,Urine Laboratory test result Abnormal (applies to non- numeric results) [facility] ([facility]) TEST FOR BURPERNORPHRINE Cocaine Metabolites,Urine Laboratory test result [facility] ([facility]) TEST FOR BURPERNORPHRINE Methadone,Urine Laboratory test result M EDENT ([facility]) TEST FOR BURPERNORPHRINE Opiates,Urine Laboratory test result MED ENT ([facility]) TEST FOR BURPERNORPHRINE Phencyclidine,Urine Laboratory test result [facility] ([facility]) TEST FOR BURPERNORPHRINE Oxycodone,Urine Laboratory test result M EDENT ([facility]) TEST FOR BURPERNORPHRINE ID Date Data Source [id number] 06/19/2020 04:40:54 PM EDT [facility] Name Value Range Interpretation Code Description Data Balbina rce(s) Supporting Document(s) BUPRENORPHINE UR 16 ng/mL [facility] INTERPRETIVE INFORMATION: Buprenorphine and Metabolites, Urine, Quantitative Methodology: Quantitative Liquid [...] laboratory. Test developed and characteristics determined by [facility]. See Compliance Statement B: [email or web address] NORBUPRENORPHINE UR 116 ng/mL [facility] BUPRENORPHINE GLUCU >[address] [facility] Unit: ng/mL Consistent with use of a bup renorphine-containing drug. Glucuronide concentrations are semi-quantitative. NORBUPR GLUCURONIDE [address] [facility] Unit: ng/mL NALOXONE,URINE <100 ng/mL [facility] Performed By: [facility] [address] [facility] [place] [address] Chemical Production Technician: Yaneth Bar MD ID Date Data Source [id number] 05/31/2020 11:22:29 AM EDT [facility] Current Problems: Fractured dental tommy rative material without loss of material (ICD-525.63) (EMG26-C13.530) Dental Chart: Procedures:Type - CDT Code - Description B - (D0220) Intraoral, periapical, first radiographic image on Tooth # 8 (Performed by Nini Vazquez DMD) B - (D0140) Limited oral evaluation - problem focused on Tooth # 8 (Performed by Nini Vazquez DMD) Treatments:Type - CDT Code - Description T - (D7140) Extraction, erupted tooth or exposed root (elevation and/or forceps removal) on Tooth # 8 (Performed by Nini Vazquez DMD) Chart Notes:rasheed (May 31 2020 11:59AM): Additional PPE requirements due to COVID-19 in the dental setting, N95, surgical mask, hair covering, gown and shield.S: CC: "My front tooth is pretty messed up. I had a root canal done on it years ago. Now, it is starting to fall apart. I feel swollen and eating hot and cold really hurts."O: RMHx (-)per pt. has Asthma and mental health disorders. HPI: for years. PL:7 BP: 102/73. PA taken #8. #8 badly broken into the pulp, with possible signs of a cyst present (well defined PARL).A: DDS recommends to have an apical RCT, with crown lengthening and crown or to have extracted. Pt. opts to have extracted. Placed referral to OS to extract #8 and evaluate possible cyst. Placed referral to prosto to discuss possible replacement options of #8. DX:#8 fractured into the pulp with possible signs of a cyst.P: refer to prostodontist and OSInformed Pt about new pain management policy of the clinic regarding about narcotic,told pt to alternate Ibuprophen 600- 800mg and tylenol 500mg every 4 to 6 hrs for pain when needed. Assisted By: AM NV: new p/[facility] DMD by rasheed (05/31/2020 11:59 AM): Tooth Notes and Watches: Assessment & Plan Problems:Added: Fractured dental restorative material without loss of material (ICD-525.63) (ICD10- K08.530)Allergies:No Known Allergies (updated 05/31/2020) Orders:Oral Surgery Referral [CPT-06563] Patient Support Partner Referral [CPT-[id number]] Name Value Range Interpretation Code Description Data Balbina rce(s) Supporting Document(s) ID Date Data Source [id number] 03/17/2020 03:37:00 PM EDT [facility] ([facility]) Name Value Range Interpretation Code Description Data Balbina rce(s) Supporting Document(s) Buprenorphine Glucu 333 [facility] ([facility]) Unit: ng/mL Consistent with use of a buprenorphine-containing drug. Glucuronide concentrations are semi-quantitative. Norbuprenorphine Ur 31 ng/mL [facility] ([facility]) TEST FOR BURPERNORPHRINE Buprenorphine Ur 3 ng/mL [facility] ([facility]) INTERPRETIVE INFORMATION: Buprenorphine and Metabolites, Urine, Quantitative Methodology: Quantitative Liquid [...] laboratory. Test developed and characteristics determined by [facility]. See Compliance Statement B: [employer] Norbupr Glucuronide 93 [facility] ([facility]) Unit: ng/mL Naloxone,Urine Laboratory test result ME DENT ([facility]) Performed By: [facility] [address] [place] [id number] Chemical Production Technician: Severo Orta MD, MS Unless otherwise specified, testing performed by [facility] [address] [place] [address] ID Date Data Source [id number] 03/17/2020 03:37:00 PM EDT [facility] ([facility]) Name Value Range Interpretation Code Description Data Balbina rce(s) Supporting Document(s) Chlamydia trachomatis DNA [Identifier] i n Unspecified specimen by Probe and target amplification method Laboratory test result [facility] ([facility]) TEST FOR BURPERNORPHRINE GC Laboratory test result [facility] ([facility]) TEST FOR BURPERNORPHRINE ID Date Data Source [id number] 03/17/2020 03:37:00 PM EDT [facility] ([facility]) Name Value Range Interpretation Code Description Data Balbina rce(s) Supporting Document(s) Amphetamines,Urine Laboratory test result [facility] ([facility]) TEST FOR BURPERNORPHRINE Barbiturates,Urine Laboratory test result [facility]) TEST FOR BURPERNORPHRINE Bupernorphrine/Norbu,Urine Laboratory test result Abnormal (applies to non- numeric results) [facility] ([facility]) TEST FOR BURPERNORPHRINE Benzodiazepines, Urine Laboratory test result [facility] ([facility]) TEST FOR BURPERNORPHRINE Methadone,Urine [facility] TEST FOR BURPERNORPHRINE Cocaine Metabolites,Urine Laboratory test result [facility] ([facility]) TEST FOR BURPERNORPHRINE Oxycodone,Urine [facility] TEST FOR BURPERNORPHRINE Phencyclidine,Urine Laboratory test result [facility] ([facility]) TEST FOR BURPERNORPHRINE Opiates,Urine Laboratory test result MED ENT ([facility]) TEST FOR BURPERNORPHRINE ID Date Data Source [id number] 03/21/2020 01:01:50 AM EDT Laboratory [facility] Name Value Range Interpretation Code Description Data Balbina rce(s) Supporting Document(s) BUPRENORPHINE UR 3 ng/mL Laboratory [facility] INTERPRETIVE INFORMATION: Buprenorphine and Metabolites, Urine, Quantitative Methodology: Quantitative Liquid [...] be greater than or equal to the cut off to be reported as positive. Interpretive questions should be directed to the laboratory. Test developed and characteristics determined by [facility]. See Compliance Statement B: [employer]/CS NORBUPRENORPHINE UR 31 ng/mL Laboratory [facility] BUPRENORPHINE GLUCU 333 Laboratory [facility] Unit: ng/mL Consistent with use of a bup renorphine-containing drug. Glucuronide concentrations are semi-quantitative. NORBUPR GLUCURONIDE [address] [facility] Unit: ng/mL NALOXONE,URINE <100 ng/mL Laboratory [facility] Performed By: [facility] [address] [place] [id number] Chemical Production Technician: Severo Orta MD, MS ID Date Data Source [id number] 01/05/2020 08:11:46 AM EDT [facility] Name Value Range Interpretation Code Description Data Balbina rce(s) Supporting Document(s) [facility] [file] /gABBKRklGAAEBAQBgAGAAAP/hAGBFeGlmAABJSSoACAAAAAEAaYcEAAEAAAAaAAAAAAAAAAEAhpICAC wAAAAsAAAAAAAAAEludGVsKFIpIEpQRUcgTGlicmFy sSopdqNcd0flqhFxSr6lIwN1GvYwYRYU/6sRGtHGNwDEVqRKGrqKJWbDVnyXFGeKKxuKVrNXYW8qWt0s ZyflHJXuOrIxHTPpRHt3XNugHID6CA7gJA21AngbKeLt/3aTBiGDMAuYAgpZQA0OOiViCRBlUtWrWqCb MjIyMjIyMjIyMjIyMjIyMjIyMjIyMjIyMjIyMjIyMj IyMjIyMjIyMjIy/8AAEQgGLATIAwEiAAIRAQMRAf/QSO2GCXRGYGUTQGUUHUKDAYHUOYUMPrMOZUBVTQ kKC//EALUQAAIBAwMCBAMFBQQEAAABfQECAwAEEQUSITFBBhNRYQcicRQygZGhCCNCscEVUtHwJDNico WEXcSHXJdxAOTvUIhsMZL4Whg2FsPCQWHIXKoPW7LE FrmWATxzVMBaO5gqweB8rBX4eSv2x5RTsmrJnMyGw8PZnnmIqVtba0Mswpsnoapaq2A2ito6etwLc2XJ rbfMltuL04XE1obP9hxa9fAq0cjj2Ago6wDo0QH84/j5+v/MNK8MPMYHEGHUYFRNUEFLWBIRLJKPVrCJ BQYHCAkKC//EALURAAIBAgQEAwQHBQQEAAECdwABAg ZNYAWzINFWJBILYBJKSgXLDUVItdAzfIddF9FfPZNx9MwCTGKyAxOQQSjzXpdtEYw6Ijn5MZiTLJQMG4 ePNiJVKHAQGCoyH9FgUqiclHilsHO8d0b7zgEPrUACl2rOhlKKcAWLr5lCuzXkrLPgo5ieggRwxXZ9v3 b3hvGTlLVDp1sPbbJD2FQP78pA9oMr1YCd3+jp6vLz 9PX29/j5+v/iQCrXTNEYKELUSQ2O0/ooooAKKKKACiiigAooooAKKKKACiiigAooooAKKKKACiiigAoo ooAKKKKACiiigAooooAKKKKACiiigAooooAKKKKACiiigAooooAKKKKACiiigAooooAKKKKACiiigAoo ooAKKKKACiiigAooooAKKKKACiiigAooooAKKKKACi iigAooooAKKKKACiiigAooooAKKKKACiiigAooooAKKKKACiiigAooooAKKKKACiiigAooooAKKKKACi iigAooooAKPETERSBURG MEDICAL CENTERCiiigAooooAKKACiiigAooooAKKKCiiAooooAMAT-SU REGIONAL MEDICAL CENTERACiiiMEooooPROVIDENCE SEWARD MEDICAL AND CARE CENTERCi iigAooooAKPETERSBURG MEDICAL CENTERCiiigAooooAMAT-SU REGIONAL MEDICAL CENTERACiiigAooooAK KKCiiigAooooAMAT-SU REGIONAL MEDICAL CENTERACiiigAooooAKPETERSBURG MEDICAL CENTERCiiigAooooAMAT-SU REGIONAL MEDICAL CENTERACiiigAooooAKPETERSBURG MEDICAL CENTERCiiigAooooAK KKCiiigAooooAMAT-SU REGIONAL MEDICAL CENTERACiiigAooooAKPETERSBURG MEDICAL CENTERCiiigAooooAMAT-SU REGIONAL MEDICAL CENTERACiiigAooooPROVIDENCE SEWARD MEDICAL AND CARE CENTERCiiigAooooA KKCiiigAooooAMAT-SU REGIONAL MEDICAL CENTERACiiigAooAKWindom Area HospitaligA ooAMAT-[facility] REGIONAL MEDICAL CENTERACiiigABoston State HospitalCiiigAooooAMAT-[facility] REGIONAL MEDICAL CENTERACiiigAcarney hospitalAKPETERSBURG MEDICAL CENTERCiiigAooAMAT-SU REGIONAL MEDICAL CENTERACiiigA ooAMAT-[facility] REG[facility]AL MEDICAL CENTERACiiigAcarney hospitalAKPETERSBURG MEDICAL CENTERCiiigAooAMAT-[facility] REGIONAL MEDICAL CENTERACiiiECU HealthAKPETERSBURG MEDICAL CENTERCiiigAoMarshall Regional Medical CenterACiiiME oMarshall Regional Medical CenterACiiiECU Health Medical CenterCiiigAooASITKA COMMUNITY HOSPITAL CiiigAooooAKPETERSBURG MEDICAL CENTERCiiigAooooAMAT-SU REGIONAL MEDICAL CENTERACiiiECU Health Medical CenterCiiigAooooAMAT-SU REGIONAL MEDICAL CENTERACiThe [facility] FvfecIauilXV9IAcbVhevnNFVUIfSgt/ZLE7v6Jg8k/hG8HHNnfAwI9lyVBgDnt5nWuK2b9vrwC07bn2 +Dzbv85c7SkolhddL3jFYbzaIHlr0ADtSSQvEgtow3 gQ6mkdzTSlrfyBMf9MjPOI87LIEc+Aqaw+E0tBYYp2orvtZXlfFASY/rXjdrpt/lWTyKFwUF93wUYtR9 cdg6i7f9g5UD/cilOH581ozu6VN8imFV+qtG1/R7auxqerzTwf4RuzrGdaPgPzLmBgI8s19K2fSbF8Ey R0I7g+yv6B2BmK4fkwc4iwnG0slkkN/dd0Xep8mnMu 0L25KAtej6RdqlYZEcVbEOKTOLCJfwhUYHUJUMUAFVAWWLHYQLAGAKAQNWZHZXCGBFOAPLJSAHQJMVZT QAUUUUAFFFFABRRRQAUUUUAFFFFABRRRQAUUUUAFFFFABRRRQAUUUUAFFFFABRRRQAUUUUAFFFFABRRR QAUUUUAFFFFABRRRQAUUUUAFFFFABRRRQAUUUUAFFF FABRRRQAUUUUAFFFFABRRRQAUUUUAFFFFABRRRQAUUUUAFFFFABRRRQAUUUUAFFFFABRRRQAUUUUAFFF FABRRRQAUUUUAFFFFABRRRQAUUUUAFFFFABRRRQAUUUUAFFFFABRRRQAUUUUAFFFFABRRRQAUUUUAFFF EKQIKFHUWUDEYLTRZNQFLFWNMNDTAYVNHYIOlw9TTA VVVQTFK1MwnvsRysncVsz8AjmdGpnzA7J2TaNpF4uY3E9jEFbpk3h9tFS1u2m12OapdSAdqcb7QV2/4a eB4/I62XarabbHjhAds/lP2RiFDWVqNR+wqkGdRvU7hVkYQhOw1L130/7xUoFvwU1G4hNHOBe8G784yg ZtyCV9o0QtFYPicKmCMNWL+ty7VmrV5fNRIAOarTg2 pb0yMwpKGvSx3toS4Kgous6zb0L+PWdWkGvF4wud0mMs2ETx9FmmgYMRVheIum66nBdQeEVxsC901Orh SL/iVvkedkjH+eeQsJcWr5jfQ/eW4jI/06AqxB41GY8gy8dX89+fP5rVVRQceJZDOhtTTFBbqKBGQgzE SUooAKKKKACiiigAooooAKKKKACiiigAooooAKKKKA CiiigAooooAKKKKACiiigAooooAKKKKACiiigAooooAKKKKACiiigAooooAKKKKACiiigAooooAKKKKA CiiigAooooAKCiiigAooooAMAT-SU REGIONAL MEDICAL CENTERooAKLoring HospitaloooAMAT-SU REGIONAL MEDICAL CENTERMECiiigAooooAgAooCiiigAooooACiiigAooooACiiigAoooHumboldt County Memorial HospitalPJRATKIbzlnWmdzsNSAOZTNbdczLboddDGYPRQXugriZXMUjUGWzsfxYNl7alOuviyEgd1Js4O/iK57x D5qNyboCmHjXXnVVB1j3CTqDw4rX7xY4pzA2RwjOqR HON6GXG/XWqoNY7fJJ24N+bL+vz95VSkspCfNC1Mvbr264V9MRCBWwNE+Hr+TZBO+04nuuf80svhM3Lb v+W542olgdAcugYDwhZM1pOfzrI5df78/Ft0hwWBexH49PbTT3dKj7yXRWq8U7/ac89p7hQrSDzH0Jj2 h2CkY0ZaCB+tZJBFHcxO/oXlUax1EyDxdOJoM2P+IJ g1N9uhhJUNKlKL8E/Gt6z3pZCea4FzS9BW1nDOvg0kpfMnctmdYjZiMRdMa28Kyyb9pf1r2lDnRwRAxs sTLz7GuRZT+EPh/nCtrEt9w+SHThn54JXCNkH4oRB54fZILhtJlBtlx61JY/zI1cGfXM4ymVlJokITqU eU7B5YacLQ8WtNzueIBP5dBUG7S9pqfW52bcFIjFcm p8ho2uTvCsvMRg7aQGlN5V5ahtTB6cykbRuNqzspvB7I6V5XsmT2kOxSeZEKMGsEFXClLHLRLAEATLMB AFFFFABRRRQAUUUUAFFFFABRRRQAUUUUAFFFFABRRRQAUUUUAFFFFABRRRQAUUUUAFFFFABRRRQAUUUU AFFFFABRRRQAUUUUAFFFFABRRRQAUUUUAFFFFABRRR SUGFNUIVFkj0n5I/1GsNkhjyly0w0RiVkBSix5s3SvGgJb8DFopGAj4ynBtRk012bfXTh1eGoN/RgPwr ZvEpckOcImIXs2OC9gSMbEgf/hNa0yDiiooKPGOoonrY8G0tq+5W1v4uK9tyC1KXh5nYewFzup2V+[place] [file] UUAFFFFABRRRQAUUUUAFFFFABRRRQAUUUUAFFFFABRRRQAUUUUAFFFFABRRRQAUUUUAFFFFABRRRQAUU UUAFFFFABRRRQAUUUUAFFFFABRRRQAUUUUAFFFFABR WMFOTOWQSRGSCFGLBNRFPABPRO5Fdu4xf7srKAEkqmePVySMj1BFmDzsIVumIBuG8YRB4BP960CCm5Y6 i+s0nE1tOV9mw27oguL6388iwqcU/NZn9zTzq0BMJAxzeuhUd+1wKHj6OmVzBQPHLiinLKf4G5Lx7MoO AScfA7JTOUwSVz35KLaV4FCkLIyAwB5ZrNWd7jrUW9 QwiLXJYRXIHcN2WlXVGFCz/SKVS1RYtqBFTcgHbnyFH0yasfygdcLuvImnFXH6MFCGaiWJ2gKUo6d7T0 S5li/nST08Lfdj+OYoP6eyxTZ8qyAu7jbMu2qfl0s71jxqtFbHGE3ZOmHWD+9XAihNgUBQMYxxinUUBZ YWrkP3lowu8gKZNKT6fqNVLDQLvJffYJT70cFEk49Q OafjLhFmTz95decVhKesTYsFoVQgW1tR6OWPbU7iN02UJVnr44YZQF5VyHLCOAerEZAvRGzlpSQk61lC 4ErCKfAKVbbvCx7+twllfP5BTxNEjmyURDpM+4YUYD8W9Iu/5sWaVNE0NI8H9Iaue9sLOWsakXt38Zod FFwshFUIoVQABwAKWiigYUUUUAFFFFABRRRQAUUUUA FFFFABRRRQAUUUUAFFFFABRRRQAUUUUAFFFFABRRRQAUUUUAFFFFABRRRQAUUUUAFFFFABRRRQAUUUUA AMNCDQSNISBAECGEURKNTSPJWZNCTANQWLHFJEXQDEMUKGHRCRMOORGzgBmFXEUdVT6HGNCKBuVSsByL 4t/sDBLJElF3kmgoBff6Jdwoum1vN/7GdWmVG3o1lq TN27mDLijmP470bKBxMani1+TsRT38WOCoYOfd5/4y5cJLQOXzcxHWy19orbXh653LWKSztSo6f12CjZ 5xg7OIN/Zgy0kpi6P4tacJ05Iqct2PE/OkOoyxsT9rJ+Js55FrbdJ/OQOwo5jp8UdEiHSm65mwpjt0jt cy1307byA2xeNBWfGOVmBhiWvTcHOPwyOPUoEImHr7 yXsfCfyZpcXibSg52FPSb6fwxCXZAkMPxjtPaYGDf/DRv5SL3GtEQ4J7phtE6mi9CcRQM8k1g7bq0x6c 8+VIw+LF5tKn2vqLaR4er61LeoejcXHXHduX5iNirkcYP4n9CI+yaybxoTdjKZoh7WtTY+DtI0w+MPFH +gWv+j3cZh/cr+6HF6336R8+bzGf9dT7s2RvMljYqq VaSIIVljn0bqY5K1kWazva14N9XPb6CEBkomnmvMn/j0Xf/CW+YEWCO1gbcnC5vqMynucsh9os7X+0z8 Rrb3lpje4/TQMQeEK74e265djrwEkM8pzg0rsLLz2SoZ2EPBrRkDkfGm6alGAXsfxKNpOh2weUTDN9gA 198MdWJV8k5BDWehNLLCGYlldDLSPZXEMMIVPUUAZQ QAUUUUAFFFFABRRRQAUUUUAFFFFABRRRQAUUUUAFFFFABRRRQAUUUUAFFFFABRRRQAUUUUAFFFFABRRR QAUUUUAFFFFABRRRQAUUUUAFFFFABRRRQAUUUUAFFFFABRRRQAUUUUAFFFFABRRRQAUUUUAFFFFABRRR QAUUUUAFFFFABRRRQAUUUUAFFFFABRRRQAUUUUAFFF FABRRRQAUUUUAFFFFABRRRQAUUUUAFFFFABRRRQAUUUUAFFFFABRRRQAUUUUAFFFFABRRRQAUUUUAFFF FABRRRQAUUUUAFFFFABRRRQAUUUUAFFFFABRRRQAUUUUAFFFFABRRRQAUUUUAFFFFABRRRQAUmKWigBM DRodXMLmS7frwSUHOLOcgDMVKmgRYCcHejbvCGWLby igAooooAKKKKACiiigAooooAKKKKACiiigAooooAKKKKACiiigAooooAKKKKACiiigAooooAKKKKACii igAooooAKKKKACiiigAooooAKKKKACiiigAooooAKKKKACiiigAooooAKKKKACiiigAooooAKKKKACii igAooooAKKKKACiiigAooooAKKKKACiiigAooooAKK KKACiiigAooooAKKKKACiiigAooooAKKKKACiiigAooooAKKKKACiiigAooooAKKKKACiiigAooooAKK KKACiiigAooooAKKKKACiiigAooooAKKKKACiiigAooooAKKKKACiiigAooooAKKKKACiiigAooooAKK KKACiiigAooooAKKKKACiiigAooooAKKKKACiiigAo oooAKPETERSBURG MEDICAL CENTERCiiigAoooUnityPoint Health-Trinity MuscatineACiiigAooooAKPETERSBURG MEDICAL CENTERCiiigAoooUnityPoint Health-Trinity MuscatineACiiiSauk Centre HospitaligAo oWestbrook Medical CenterCiiigAoooUnityPoint Health-Trinity MuscatineACiiigAooooPROVIDENCE SEWARD MEDICAL AND CARE CENTERCiiigAoooUnityPoint Health-Trinity MuscatineACiiigAoo[facility] Medical CenterigAo oWestbrook Medical CenterCiiigAoMarshall Regional Medical CenterACiii[facility] iiiECU Health Medical CenterCiiigAoMarshall Regional Medical CenterACiiiECU Health Medical CenterCiiigAoMarshall Regional Medical CenterACiii[facility] iiiECU Health Medical CenterCiiigAooAMAT-SU REGIONAL MEDICAL CENTERACiiiECU Health Medical CenterCiiigAoMarshall Regional Medical CenterACiii[facility] iiiECU Health Medical CenterCiiigAooooAMAT-SU REGIONAL MEDICAL CENTERACiiigAooooA KKACiiigABoston State HospitalCiiigAooooAMAT-SU REGIONAL MEDICAL CENTERACiiiECU Health Medical CenterCiiigAoMarshall Regional Medical CenterACiOhioHealth Mansfield HospitalooA MAT-[facility] MED[facility] CENTERACiiigABoston State HospitalCiiigAooooAMAT-[facility] REG[facility] MEDICAL CENTERACiiiECU Health Medical CenterCiiigAoooUnityPoint Health-Trinity MuscatineACiOhioHealth Mansfield HospitalooA KKACiCushing Memorial HospitalACisaint joseph east AoMarshall Regional Medical CenterACiiiECU Health Medical CenterCiiigAoMarshall Regional Medical CenterACiThe Outer Banks HospitalCiiigAoMarshall Regional Medical CenterACiWest Seattle Community HospitalACiiiECU Health Medical CenterCiiigCharles River HospitalACiiiECU Health Medical CenterCiiigCharles River HospitalACisaint joseph east [file] wWvqWoU2rtCKfcBOc7eGKvkDi8Uhiidgi8T3Ngy8gSClaremore Indian Hospital – ClaremoreCiiigArgvitA0GgWHiCIfvdDv4bwkdTHu2uv0Ib9K7 [file] AZU7Dy+31wwI5fNxWNSAOOBAKTAWEUZLPFUBCDMPAXXCJBPQXIPAYSUARUXIXBGSDUVAUCIYDQTAHMHL RRRQAUUUUAFFFFABRRRQAUUUUAFFFFABRRRQAUUUUAFFFFABRRRQAUUUUAFFFFABRRRQAUUUUAFFFFAB RRRQAUUUUAFFFFABRRRQAUUUUAFFFFABRRRQAUUUUA FFFFABRRRQByOp/C/tZY3elKuol0IULcwiz5Taff9CszEbW++Ix5pUWoGFrLoEWUyoBqmUNTxDBeON1D PooAKKKKACiiigAooooAKKKKACiiigAooooAKKKKACiiigAooooAKKKKACiiigAooooAKKKKACiiigAo oooAKKKKACiiigAooooAKKKKACiiigAooooAKKKKAC iiigAooooAKKKKACiiigAooooAKKKKACiiigAooooAKKKKACiiigAooooAKKKKACiiigAooooAKKKKAM RzGOth8wXgR5XXqSIeRkp8UNpnis7YbvStqhppasDcksyKKBDLVYnsdtNfqcmPXNYHDTuflxBlycqMDA KKACiiigAooooAKKKKACiiigAooooAKKACiiigAo oooAKKKKACiiigAooooAMAT-[facility] REG[facility] MEDICAL CENTERACiiigAooooAKKKKACiiigAoooUnityPoint Health-Trinity MuscatineACiiiECU HealthAKPETERSBURG MEDICAL CENTERCiiigAo oooAKKKKACiiigAooooAMAT-[facility] REG[facility] MEDICAL CENTERACiiigAooooAKKACiiigAooooAMAT-[facility] REG[facility] MEDICAL CENTERACiiigAooAKPETERSBURG MEDICAL CENTERCiiigAo oooAKKKKACiiigAoooUnityPoint Health-Trinity MuscatineACiiiAs[facility] iiigAooooAKPETERSBURG MEDICAL CENTERCiiigAooooAMAT-SU REGIONAL MEDICAL CENTERACiiigAcarney hospitalAKPETERSBURG MEDICAL CENTERCiiigAooAMAT-SU REGIONAL MEDICAL CENTERACiiiAs[facility] iiigAooooAKPETERSBURG MEDICAL CENTERCiiigAooooAMAT-SU REGIONAL MEDICAL CENTERACiiiECU Health Medical CenterCiiigAooooAMAT-SU REGIONAL MEDICAL CENTERACiiiAs[facility]ville [facility] Hospital iiigAooooAKPETERSBURG MEDICAL CENTERCiiigAooooAMAT-SU REGIONAL MEDICAL CENTERACiiiJ.W. Ruby Memorial HospitalooA MAT-SU REGIONAL MEDICAL CENTERACiiigAooooAKPETERSBURG MEDICAL CENTERCiiigAooooAMAT-SU REGIONAL MEDICAL CENTERACiiiECU HealthAKPETERSBURG MEDICAL CENTERCiiigAooooAMAT-[facility] REG[facility] MEDICAL CENTERACiiiMEooooA [file] iiigAooooAKKKKACiiigAooooAKKKKACiiigAooooAKKKKACiiigAooooAKKKKACiiigAooooAKKKKAC iiigAooooAKKKKACiiigAooooAKKKKACiiigAooooAKKKKACiiigAooooAKKKKACiiigAooooAKKKKAC iiigAooooAKKKKACiiigAooooAKKKKACiiigAooooA KKKKACiiigAooooAKKKKACiiigAooooAKKKKACiiigAooooAKKKKACiiigAooooAKKKKACiiigAooooA KKKKACiiigAooooAKKKKACiiigAooooAKKKKACiiigAooooAKKKKACiiigAooooAKKKKACiiigAooooA KKKKACiiigAooooAKKKKACiiigAooooAKKKKACiiig AooooAKKKKACiiigAooooAKKKKACiiigAooooAKKKKACiiigAooooAKKKKACiiigAooooAKKKKACiiig AooooAKKKKACiiigAooooAKKKKACiiigAooooAKKKKACiiigAooooAKKKKACiiigAooooAKKKKACiiig AooooAKKKKACiiigAooooAKKKKACiiigAooooAKKKK ACiiigAooooAKKKKACiiigAooooAKKKKACiiigAooooAKKKKACiiigAooooAKKKKACiiigAooooAKKKK ONictpNgataLXCJGUJnpieJvbbpIKAU491kb1YWGrOK+9ef+rmTqY4Gwi8u+G+q3nh/sFE1ZywGwmH59 M3Z0kd9lcKttkzJ5QG0BChhDG+a5PjlI4ZnE7HSw4I 4+8NNUjWtogS0IxbqtjH/wCB+Lnckd7W3SDLxAxvCuj6+I+gOUqrc65hi0FuoHkr2apRyuZzxz5HdNpJ k0CoXCpJ0L3I7S+ScKK9yC02/S3k6w2bSRj5alsTjGvG7VeYcGsiOVngk4IWBZzA/hrpXhTxJ/aegXN1 XOGzZUeNgzE7ptaw5EvAhYgm+B7C7i2T+IrJ/Hd/40 /lN9SlIvEvbtQL3VfCQ2PPQfgZvUH1IQ83EkPzTb5Ndxj/42eE/H0f3A4OpX8cO1hFeSL6Nu0116G8v0 l8N6CNkdE+zeZqeN4FXkYY9ZLeedPg7zjzEQj+6Qr0DF4uf2MvvM7S3Z+BdL+GMeYkAIIR67hl3fWtIZ YGxf2nh6lxVPwIgMfSQIAYlknI2uvu5J/b6M41Gcqf KloG7jC9n3xnhiw+jhKQ2YJgedOTRX7cNVhDopB7/ZZfQ8E1vKxTPmMsN1xBiUldViGSm4DN2Fa7Hs1u rhRRRQDavis County Hospital and ClinicsiiJackson County Memorial Hospital – AltusAoWomen and Children's HospitalACiiiEdwards County Hospital & Healthcare CenterCiiigAoMarshall Regional Medical CenterACiiiCarl Albert [facility] Center – McAlesterCiiigCharles River HospitalACiiiStevens County HospitalgcGGYVOGWtcysLrsoxDIPQJHIthtfNfybtAILOAYChtcoVnglnLS5pB/Eg7SgEw4a/zw22ju1GSk0xap 3m+ZhI02Zjry7YmOZEYOo3P7FLb+Uu7t82r/HMRPviTR0HY4hQMyovN3JpgMDxW3AxuD3Xz5aX9LAbz+ J/wB14zV9mEy3ZJDBOySGymhKUM3t3f6suhZpEB4MW dTvAblvEsYJzotPAqOoL6gwqMkgj+IpLANL4L+nHpVK1+MEWb6G78Rh0JyVGAYufojIC7YcgLXSbP4PM DmMIGchzl0HcQHxT+FtK4kWsKvUhOCA1w96uWo0sGLWTXVW6sW9iMLmsk96C9upHAC85K/utuBm3PbNv Anna+qTS44YDb1Xi9mTCUwFfhV+fTh6nDeY95LYpgY skPgipxrAhhbfMXn4pJKElN8fGEnW5H+Hbbwa+yCWzRXk8HCPl7jGFr35g6/OCckEZ4+vlMMspba0a86 o2m/Z/M/xG9C7tovl5sY+dTl1k0OXWubuXA1X63mZ/D6X9fEa2s/lZt7JbkNKuwYWCcjsqBkKoTeUFLb PPougCmGqfoF4IjMO/bHHYZa27WpPwUJDUo00UP20p VzVPB/9peJvDes/bvL/nOWqxcUz561ZyOy4dOF2MgCM9pSi+YE3BBtgyOmfwjuFBFOKgl2KwFwxtXNxt X1jRFmiV75ZR7IsxQFWAVml2lllg6ssGGZB1PRNYXjSRwQD06/ygtjw3lzuJxzL93gM441fIEpuPSW2l cJssJJDM5s3170G+FeFOnonF2932Yak+HTKUhaPeZ9 6YDPLFHfAw1LLq3SVflhpE1nLubQvnlj2prCqWA0HQ5Frq5UVqLcD5qzvadL5O1/JBIa3XBuUDj3gLcS 02tLCC5yElmTYhGOFozSQBgiClTUfKuy/KQ3txgv/zZIcyIabo00I8xIsg4XStUYxqX2GCCwnEj9twOi JufsUPxeBVpKmS5xm96j2IzG4Lrc6tR/Zs5+Q9vSuu TdOBYn6FyIFYHETMVNTDXBZGNCJEAFTXSJRDMZHYJIUCUNOAZXBGBYFOSFZSTLIWXHPRJPFLWGIEFFGS UUUAFFFFABRRRQAUUUUAFFFFABRRRQAUUUUAFFFFABRRRQAUUUUAFFFFABRRRQAUUUUAFFFFABRRRQAU UUUAFFFFABRRRQAUUUUAFFFFABRRRQAUUUUAFFFFAB RRRQAUUUUAFFFFABRRRQAUUUUAFFFFABRRRQAUUUUAFFFFABRRRQAUUUUAFFFFABRRRQAUUUUAFFFFAB RRRQAUUUUAFFFFABRRRQAUUUUAFFFFABRRRQAUUUUAFFFFABRRRQAUUUUAFFFFABRRRQAUUUUAFFFFAB UFENPHEWANERPJXROYYMETMVQRWNJEBAnX4I9zz+JX iP+3db/r3aPpgGT8Pskg/lry1ikntses2l01tJ0QabuJRQqWLxhvlXc63lmFCT0aoduWMOdG2ry80Zzk nkLddEHaDG5VWuBclX5k+EpLWW/jK8FpISrxq3O/2X1WK3O+orK+3+VueLC7Hvjv7L4AqD6a3qYxOPK8 IHIm9TQd1tImx2cNNUw0TacN7wnBUb5UyL1UhMXDl0 VIN8k2pHHRGIIPVTrxUYfbmN8dsfeqLbWFD6f/V2lUwOZUxrbaeD4p0zB7UGW7BTCcxkinkOH0f8rHq1 wLjT5p/AQVAxC9oE/nJPGUUPDnzS9v5g06Kpuct8+q1xaYzn0a6qOagoWPAoO8pPzrZDgJxPLjg2mn6h 6KECo95S9uv3m/yU7Vv+wXaf+uA28bfaar1bJYUHKL RRRQAUUUUAFFFFABRRRQAUUUUAFFFFABRRRQAUUUUAFFFFABRRRQAUUUUAFFFFABRRRQAUUUUAFFFFAB RRRQAUUUUAFFFFABRRRQAUUUUAFFFFABRRRQAUUUUAFFFFABRRRQAUUUUAFFFFABRRRQAUUUUAFFFFAB RRRQAUUUUAFFFFABRRRQAUUUUAFFFFABRRRQAUUUUA FFFFABRRRQAUUUUAFFFFABRRRQAUUUUAFFFFABRRRQAUUUUAFFFFABRRRQAUUUUAFFFFABRRRQAUUUUA FFFFABRRRQAUUUUAFFFFABRRRQAUUUUAFFFFABRRRQAUUUUAFFFFABRRRQAUUUUAFFFFABRRRQAUUUUA [file] Bl/tDZ+/8Arj7iu1+mv6l7ofVKHSZLPQXGSXKAVVTHTTSIXNVZOLCWLKVAKVVXQQFVMDJORGSGAZABUX ABRRRQAUUUUAFFFFABRRRQAUUUUAFFFFABRRRQAUUUUAFFFFABRRRQAUUUUAFFFFABRRRQAUUUUAFFFF ABRRRQAUUUUAFFFFABRRRQAUUUUAFFFFABRRRQAUUU UAFFFFABRRRQAUUUUAFFFFABRRRQAUUUUAFFFFABRRRQAUUUUAFFFFABRRRQAUUUUAFFFFABRRRQAUUU UAFFFFABRRRQAUUUUAFFFFABRRRQAUUUUAFFFFABRRRQAUUUUAFFFFABRRRQAUUUUAFFFFABRRRQAUUU VERWGWIMNPVXEIJQJYGPCJNJLf1kg1Z2jFST29D9zB 6sWn4uC5WhElhZlry2k3Vjb36pRA2mjKapchqymk6TQ9ExRP1Z4ulmSUyWWOdAB5I/Y/XU0nlXAKsAIV sT5/OiU76FmwzSdbOOAjQzi+YkjlVAndu7RI+XbiM8KDfwTzYQNlqgZtQ6ng87vxMPoC+i0romQu4v91 pNcF8lmhsnYewaZhhxTHWd7ycnRFntYMWkbtMwjY6Z 6GU6HfisMCgBk4xyqPa79Vr+AVBbEF4qRII3H9tuXSRilZbarGPAxzzYby+mid1bng61up3afoo1Bplb goglPXMRKumTKNPmAzTsYn4yXHEp2p+T7w57FA51m0fbfAqiL8rc+tWCrDMxwsnnynPMQui5Me26td/H RwDfEsrL1AebCMRllk8/lNrHAcAe586dNQq6eQxB6g JVSQsDc38VuuirBnONj0XLRuO4sRwC2fNKhSrrMeLYpLnI86eZnOMlRlvrSYOV9zLocGF3QRjmgMpkSp G19JJhiVivLCX1tm36MN3qNmZ8a9jeK0R0reA2vmAx/sDMnVmthYFtjsbWxRmaFnbML7LA2BxZc7q1AJ rzS/C/iDYm3H1GZV3pagbqd2bUmRYJowNopNOvRSO5 LzrQdJ4Xt1mt1OXW7X9zmb2tqkh9WzsPg4GHkuzzVFzItcrpZRqPQX4atYNYdwlq2dKVBLXPSIOLLXSN CVQO13z7ZisvKV6pizMfLteAqZXpfOYEnVsEyjeqpHpFDJLuOMDaztUmPYAalisqf25Q3ALB2eBfDLUZ fwKZrrDyVhdFzGB0hqHf28zGdWIIoqcoW6btzQCTQ6 4f6wsaNncY0BFFJ902mDo5Z5SJ/wBHvb7+6n3wgIaGoQmOW4EDFfiA9VIfubGJw5+q2opQ5OakaubRgG 21wTpPZxU9W5QvOMF+FNbAdFRRRQAUUUUAFFFFABRRRQAUUUUAFFFFABRRRQAUUUUAFFFFABRRRQAUUU UGW7s0gYDlZkMkjMq45Vg0etoXAzeY0WL6XtACdA/b qp4c3ODHox4KNVJ0aWtNAdnOh1a76s4vTdiu1xatSSZ1EegD6kpVnpPJ7WeaKJSYpExjtMewXMPL8PC5 fryDBD9JG5RzdrEO8w6t6L7HKwQZfRZ1WFwHoluxvQVs4AV7n2ueQisYL2mfhtHvDOuXSYOvMCUS0V0D pOwgDVjrjfwAe93F8Jy4CWtUVai1VSW+zMmDLrG9Ha MxscUqveFtQN4JTeSh7E68KV0ZMOrtRd2iYFISPJU84+poA5W9BeFkb8sRDOL856p/vyRn9vDTSX3lM1 6vV4b07x+DXBO6k3tlLAK/tb+1LL+zcZ+9hqJ4uzr+/ya3817yvedx9mlAp9icbzYw5ZkoHpmOsySYiA MNoqDHTJgfj05oh6+79G1X2Hw4xaaq2OYR5siAAMjx oo0DdEndG6QPWVPg7fYuGV0exs7VT31sqRCmcOjXEXibUY9Fyssqvyq25WgdmEoyoh5LekDKJPEiuceL ooooAKKKKACiiigAooooAKKKKACiiigAooooAKKKKACiiigAooooAKKKKACiiigAooooAKKKKACiiigA ooooAKKKKACiiigAooooAKKKKACiiigAooooAKKKKA CiiigAooooAKKKKACiiigAooooAKKKKACiiigAooooAKKKKACiiigAooooAKKKKACiiigAooooAKKKKA CpoelGvwdeAAGMFRCmjluGzuolUEHLWIYubjhLvvolELFNUZPvphaYyelnJAMDUDCaqnmUVz4Fr0FLJH 1VL9SBlBjiiuUpU8iku10JNR1hDKaQ3S016y0cT94F VqY31WL6uUPDuMU9A5hwGazwSOSEoBFxwtG+kt9a57icYbTishasA9ziUd7nDtCsD9yXUCLjhd0tVyxL gs7YDD1m8OPI+OzkjjeNh9hYqOXzyv17FO4IugX6G6N2lTjI5jjAE5h4Ej7ZfhJ13xWkMxn1rym8FsgC mPoHECFsGpoyHG50w40jPlH+V5WZyXxz90CCKu58Jq axupZXj/pDn6PVTYoDPYQbD8FAKXghNLcsU/4TfTLfwvrk+fSepWh0VU2AqpsafCNmaYb29KbsPJUeE6 Z1Ee9IRncmo3HZidEyDq9UD4pSsTmJmuBXZorwQdoAhFgw+qXQBkUut29qOdYdzUQ7h7tfJaR2jYWqz3 Hco7wKUkUIDp0yaByO8KE8b+rxwXp1KHK9EQ8ZR9qp VMTadKNoOMrSIasweAuIHw2Ka4Ix1ig5wqpxLpzLNkvYFBUxNpwYgUtPYDXwwCBrvhMQTRq/P3ruxjA5 hxukrVWnxgLbfzsKnOMqxkfDaQWusXpNfIFOPzPq0XsSu0H4t79+ysvGol8qj0aF2OZDiSzYYuEekWSd RUCQPCKVBWJYOFWFPRWSuhbk9avyjijyBacv3rkL1Q pT6ufGl2OGWYaUReDU4M491Pdjpygfx7VMdKQOp+6ev9zA3isY5kKN2g5hznyVwsPOF8GHkrJwIFfUEv r6l4Y/rV0haRk8em80mrsIcVFF3NkplhjEo9bz+VcvwHzhz1i7dG8pm9aCTbQoJGabqOZSYXSlldM9yh C4UfwUjv9ym0JeJVAKLWAtMmkGoM3EZbyLwkIdPqKW 3n1AVr1Y3H5YIyD9L/fj8aeUpvWG+1BrwGtB3HurxtQ1pECswDmQ8OYOLyj3o1S8A8BrR5nPaNApL7kD BjrPHL3Q8il2oNK6Ly9r9CDAEFHLMbPVHDWXXBIWBPRKZOYPYQQBYKNNCLPPHMNHLPKIELHDQJWGRKfk 6NbWutX+sA5h1A4iuMWAETWVAjmRVoXaqFFA4Wypa6 GOXg83scMRn/a/sYtJH7crFATlqLUXOKqzO2qHLd8JPAuom+44G5w9vlkseQ6ywv1n0SI+7CDXWp66KM eKJQmza9sG848aTv3BvflFsAq6K0QhyUvtidXyD1bDzyXraxHjQaHVMYd9BGprL8a7nng7AJR0FH3xrs YlIoSMf9QaDjPGxJsFrDQrYG/CgDjtVU7lV298/wAR 6lTdx9DCDxIMNjLSBBIN0CZzGCnsuekpBZ82KPESMtD82SXTq5ZEvT+mW7jm3D2CxRZXEj5MaShweI81 Jyle7Vf9P4Rar+91K/KwccvWBSJSZhQmwouuWXrUtts1OUfCNiHPVMDLHMQDQYTMENIKWMQXWAHJQHQI HILizq6zfBt1a/5yxPsiNNoQ1vWWBlpwg3cyQU+SF2 k5Z/pYUg3hJYMzCcNVoN10cuxuYWhOi2OM8rGWGwchcUNB2oLOn4bc4WQfenIClWg5406Py5IjNpMfaW FXEZIQbUHx2aUwJHk9s6t9VAnoqnqRyyeiSRVHJNAewtoDcrwcPTELXROmtvlYzmdlBVCNDOXzqvhOjn ooAKKKKACiiigAooooAKKKKACiiigAooooAKKKKACi iigAooooAKKKKACiiigAooooAKKKKACiiigAooooAKKKKACiiigAoooo[facility]ENTERACiiigAcar[facility] hospitalAK[facility]ERCi jjsOrajqRFBTEPDxuagTvuayZQJWCMQkpdqIgcqvPJBDQOZymaeVlhspRKUKTMMsybaWW82Etr39B61n sjxGC+xq7sEDvkNzcM4NNV5zxJYL5n8V73a4E2hkEt bjrr2qrpSnTXhOMScxqw12Oo5aX4S3125gWOV74qarZd5w0I1dnLw5ZTN0bQssDCOuLGniRCfEiVTauN 4n5bCRVIbj4rfcasdMWILlGtbswGK/J7ygFhGL1IQnhRuR7a+LqKd1r6H2ljAE4JVTxgsXX5sCcL/vF6 s1ysvzzE3ckydxy0e1P+2opGc6GyjZ9xTu3L7bjRmK E5H6uNtcQTYIbS3Of2TpEu92lzyewLf46pCe/Be3vuZxF6c7vmrBF8zDW7kTogvNbMoDGPRI5+isRvEU ef0BPN05I4zx6XfsmqWjcH25BLMIs0KBcauDz9zl5E3Qr1NJuu08Ibb4l7rM5UXnNxVk5N6e0GTAuMgV okIEOCO7VtocgGdoadRFRNCRMnhquTvlmyFUvuY2t4 5PKLHtLpbPCH0c1iW4WQP7WuU40lvMyekaYuBxSr+DpRoYb3qMMVFH4P2UtT9CJF+3ZmtJiL91QB4xok n4p7FlThFP0h+KiLw5ezSTu99R7MkMwogDCqE9d8GqfqxN21NYwfpBhApsauLyuti206s0AH3p5M2v3m Qeg2PqBQf+QyzK9CaVUlZUxRB5jEYbfwT9kayIl29u rop0CIUKWtu10FFFyZFuW9CKZHtR/A4cy2Zdgvp90wietuoJDmmUEmX4aCY2KxXOUd+G9F/sHSPsrSiW xKtG3noWdv2wc1LE9KGHS4iIyjihCWWRNURMWYKYUYRKCAJQCHMFQLHTDDQKKPQDVLQOVQLDEMTPSYOQ HFE3q0YtCvexXhdFi76bPux693cMs7mgOA33a7s1h6 xqEmvpoOjLbpdC3+11Q1xX0sxFYglqWoWoaNXznBJBvdbSpK6r9SIr0Lj9OCHXEZlB0U90rBU6ZE4Yay BWuubYFFD75EY8QdQMRCL6Unpuks3d9Bpd1GhxCq9mwXm5bqxwhsEiJLO6btCFgqGgtqmNxznCNn0UcU dVv/LF4hfyMCx6I7UVizusC8ieSHuuxAFQmWilwx8J qpX9Jr5gT7ZljSAoy0y/gPHMF4tM2ZfiG+6IOCjMdDYZegzscfv9VyMKVQMKKKesfoPzqopLNJFYAVcb hqEzfrY7shVypyldjUx5C+t40iAxpyIaiaxlwtZh7lBLEWosOAHj24gJA0oro/cFeMcApBCS2i6H6Qh0 tLqAyXM+EUswAnT+UyQ1o5Ymf0MU0zlj8QB8qyqjc0 mmjpXbxADxZe1zCOoMUqigqV60FZknaRxvOPRnRg1PEoVVDXJegt5TiZ93wiXQ0hS3v82fefa7rlwNxR AewkN5mstzTCuqFSeyPYUnJowH2inyr0Gj2yQlBy9YugBrFpcAYoisSTFHl58fOIGQWEWxCZZYMLUOZE FFFFABRRRQAUUUUAFFFFABRRRQAUUUUAFFFFABRRRQ AUUUUAFFFFABRRRQAUUUUAFFFFABRRRQAUUUUAFFFFABRRRQAUUUUAFFFFABRRRQAUUUUAFFFFABRRRQ AUUUUAFFFFABRRRQAUUUUAFFFFABRRRQAUUUUAFFFFABRRRQAUUUUAFFFFABRRRQAUUUUAFFFFABRRRQ GRHZDRASQOQMPCNVQYXBADMPNYNDPkPucUPi9n1xkc bbn9L3ybhH9kjx7qOAHFdvhl4tCgBDPTSPDlrZhe9o37B0s4yeZ3ACoS/kUzbv24TkbyOtAxNTv6xb6C rnpRqoKpvc09FiEjTT77X1dnSC4lo+tMhmvcjcLIPXSZ1nQgzVvXznGVIJNcUt6HZd2Uc0atj/d3UM3k 8KhrgGz61Ld7uyjKv59XWVURmUjUWJu1Xx3zJ/AIq0 iW8vRFEHwIf818lBxq7iFaFjhbESWuOoub3U4INarzeUbbWrwYge8MsnhUZP1Gl7zww5yZQJEA8EeMyd VmRLNXqadVm6L/FUmvS/rkP5y26oOPCZzZ8uodRjGlBIjFyaYPqi/EhcyvPtho3xvi9w5wmZhx7g735U Cu4wqNGI6ZvfkVJuEz8OisiQkGhn99MGjHDy2DP0x3 2umGFSh1JO35JzLBnsJJao5MI78OvCY1a2MCXWurKZdApppvBqobzBZMMIYDmpxoOadznKF9vo1GyhSO LVxY2NIozKrYCSwIU3qzUsHtCczCvZd4L1LDm2Z0u2yL6pKVl+HiAH1eAdT89H3kVj9MyPygVSPbQfdg kBJPXeFfAiAYLG2FhFgeP2PHkca9sKjmJ0j0SmBLy9 wlseOI5jSiAJ3j3eGyvRwCWnTBMOlZcJiKwIdcbCPl0y3tO7n5yC6XUGS1CsYX/7KF6hdC6Qi5ejI1rZ Yz8ihF2H9hQwid6ZNe4/AeJYuneIvz0lyqdT6frFQn1l6kl6/bMmFImGpMYconRJGhErUTSX4DZdM9C9 FxbvyxypxaqjjrHu3TfzteFxwKvzRMyGVSYH4vhxGL RRRQAUUUUAFFFFABRRRQAUUUUAFFFFABRRRQAUUUUAFFFFABRRRQByd/RKeuoGHVsnCJlh20Uo997rVG oanhApHL6ofqgnEQRzABPNHpFMnE2fNznkA6Hog1M/0+J04L9y6SRq4nE8AzaHSAsLxcJM2BTSt2wNiw 0p5URwY3Xgx/ahjopXTYbxjui2YGxTRINKddmJCsL+ KVj3c1etpD2TSEuNyooI2sE5eArOsCQ3yuIynyqlYuaLtF37u/Cc2m+MaQaoH0Gp97hcwGb1q635OPzi 7oBpQ1GBWE/JaoO2UjeFZaTSsC/W3dyuO9NJknAOGy016x1yE2vPpdLQ6SEFM+mRhJGn7nLz0V5VGhqH gqDUIbG+Y46jIwHxJ+xk24z01YZKdJIRk79eIOZ6Ut QQImMYSZRXXRVLOqcwrTtwrjSQTYAYGccekXzflflS6wiy+H7bw/UQpwxrCTEh8giMO7+6R66dVOeke0 HsNkIYhCl2lu4IkKyt7E4Kl2nxIiwUPz2fa8BRCGF+UdlVubUM8Ja0X0ocEeoi6tWzYU2Z/zWKC8PBiA eKsyJLL3PjfTUFduT6DynXJHzqTtfMKNrfuX8G4tF3 OjC8szYB4MnPJAPN+HB1SuP6X9SnM5i8l2kDBacNQZOruwaMxQQT1O7BQuZEFvwUCyfboZATAXYHAVWA BRRRQAUUUUAFFFFABRRRQAUUUUAFFFFABRRRQAUUUUAFFFFABRRRQAUUUUAFFFFABRRRQAUUUUAFFFFA BRRRQAUUUUAFFFFABRRRQAUUUUAFFFFABRRRQAUUUU AFFFFABRRRQAUUUUAFFFFABRRRQAUUUUAFFFFABRRRQAUUUUAFFFFABRRRQAUUUUAFFFFABRRRQAUUUU AFFFFABRRRQAUUUUAFFFFABRRRQBx+eftvceRkNQlNjoHcY8lMIMvLYHPGIVWHgZYhKIhLl+8MxeFtQt 9c8Za/q+bypeif61yYAIMjUgMJZ3FaJcUi2HQ7Wp+J P+EY+xxf8JR/TH5AqT3B8obQx87QYyIF8z26pHL3p1A+GLT+6uQ9TyIhgIhx2gyVGVJzxcPLNbzISEWD BVoPhI0R4Pt8/wBhS+/8VQF6mqNRvLdyAe1Mr7eTpQqohgcG2qCxQqxfuxNDHmt4dl7re7fQiBqqodFe fstLYQOOUGoeufSdbitBZCPBLGxI0j8Jss/hTUL+y1 OJ61iRgJiYhhKkKxuVNmYBEeGYPAwGed+2DA8uZFgjdK/dPXeiX7O/ASKAJXB4yn+14wcbc/PjGenbNH ZGdliS7U0bwTcGX7t3gwwKyZNW7rsOuBz0mXXAzkWsfiZOYcY08SFtnLNBwbLiXWZs2bRWfWCk7M53vR YE7ypt5FFMHYwuT7+NbCbzwWRf20gAdfEIjsGqZXXd dSNh6fRE2gZbdJdvj8V6D1uq+JR4V+lGCbIJE9vXMAbP8jwpila2dvNLGiWM+Soge5W2GKVFJF7boYlP knqaOqxTXaLEsE9GIal2xgNVCSHVokpAXFXrVFIV95trFf8eQwZfEWNUIWnkhjkYHDOZWGtiyuQpwgtH KKKKACiiigAooooAKKKKACiiigDl/H3/ACLsP/YRsv 7G3vetpBoyLc5s3aQcxXfANWpodPcbLyw9HgVXa1AM0NtqJJXQITEWHYGEEJXUKYJOZRDPNZZTHSMMED ZNFNR83sZmx9giOcGfRl7s0rUeEzSDAA1zEdf3T4DcSJkRkXZGdnVLTpXcz2BnFa4ZQFwNMAZbXoP2OL cExbgIFqSxr4UFNnAB76+Br8f017PWuFoJoDwK6qoq rFOWEFSgkSbCiQKR4I/QLb0QI0414Or0Vin4uTJyP5q4STBxUgw1RfZLD7Wqob2w902i0z1Kk5ZXz4sQ MHt4uzTM4YsRYRBNKyATLEOWOOQANBZWLZTYMARFXIDEBZDSOAKTCNFDQRUZKDQHLKBYUPZQQUWZJUDU ABRRRQAUUUUAFFFFABRRRQAUUUUAFFFFABRRRQAUUU UAFFFFABRRRQAUUUUAFFFFABRRRQAUUUUAFFFFABRRRQAUUUUAFFFFABRRRQAUUUUAFFFFABRRRQAUUU UAFFFFABRRRQAUUUUAFFFFABRRRQAUUUUAFFFFABRRRQAUUUUAFFFFAHI+Ho0u/G/db6rNLWjdHIPist DcVzWmvW9AaZpHrbywfaAB0armpZq1fvFpIGobwISx bIZ9wmF3yocujrz663pW8K67w0is3Fr8NipNYnRTFyTJpZCuqRWJJGzWvCL4EEGpGa6PHJowEscsrC97 W5d2ReBjE7DnQaLNoLlrbbuYhIiMu7bDqExxi8bf7qf95sc0tg0hF/EV5a/sGrErw99yfdqfZ6QFSMCx 0gzz1aWlE/sLovqyXz0TMmLX13MPFiaSprkNy6KRLT TTXm0tPh1Oyb+aueT53gL177WsJ5wVXDyF4uTOBKpIZGQGt91zW9fR256CJFgl9jU5ySrDrkcZTjCpyq oo+itljlgA98nkIPSEKGJQJJXGIYVNZWAKLNAUPRBEGVDJSJaFvP/c3l4vADNucPV9R3OOsdMO7khL4U qTbXBdXkIyNmDyOiV39kmh6W9hlz3JW0+w299hct61 xFV6YnTi5AQ4kOmkJuvPmjw1DZGDaV7cqmCJkkVlK23wKL8raOv53r1OwNKJoywC5PsJbgRy+s9qJOgm eBbq76K4eOXg/VGjQfy5Zl7AI8rEQckYTYPT9bPlqmFDfzUCAbiZ0RFKwryKv0f0bf9PRt1sZKcqQGjz aJdsaNP5hP48aoX10I51o7Rd3vu6uzRVElDGoO+X80 A9MUiaEgUd7KRZa253/wCvzAr/AA+DI6R7cTD6jLAhUDUkXOu0lASLtBgJCdMJJaCDPMR6P1zVuSMbQn fVEDZAspAZwtnKNhUYrVGXXKgw8gurJRhcvxDPFVOQBypzyRqpirLKWEAHEnjjtBwyulEDLFKTVglvmF ooooAKKKKACiiigAooooAKKKKACiiigAooooAKKKKA CiHill[facility] CiiiEC[facility] CenterCiiigAoNorthern [facility] CiiiRe[facility] MexicoIQBDLUSrknoDjqwdHBZZXMQpnkeTwjuaNXDHCOSwvjxFuogwOPiU7lU789f4sgwZ0Spf6aNjynMFlaIg bzBWjNkJr58v83/sOKplSH443/1Eju3qZz7h83tHQMjiqfGTkD7yAdU70Ndhc010XWPb0wrC8r9O9gat +oXl86RwbS+FpBHsztu251BHktzb9/8C3k/hLwm+oT rOoF36Vu6xOyDd2MKaP4aTk7i9KApPn6o+0bS9Y+YPlZnye3u3jKWvFv1pBXBv8ycnEa0GTB+gfasdSn zgxdBOBzE1TDWDyUf+O4CqDT09cE+wCs6tkJjy2fo3jnJb2j2tUG673+AwmmqJXHzxs7a4TacQ0oj6gf qYS65iSrEcvthDxaphmkTz9PwhD605/haxvGvdLM/w PI1QgNBER4cr9bB6MTyIJRNvcNKao6+wYMOTt1AvPeffVAfnj+XrQmtcWcLYKjTOrSFNIY7WJ1CykKYD iGqfo0tj9tPJ3ZpQyyZDtIviKjIbt1JFI7YsnWWpXAXxN4dshl/O5d7JIGIgsDV4exCyd/HJhj2rzFrf xpLMYb4b8ea/PHFGNt9ZH+6Zx3uNozjAfIHVfyNgfu SlaOOd2mMo3q2/Tk5al1jw1a0YYHfw2cViMtzKWc2Zb4sjBaEqZPmJMGpuilNJiZDnycnxJk/rUre9VN zJlhXcc8JMmTipO/QEvD2cfyxG0rRwQc303V0sXDB7us1yygVoUh5m0sbTvdVlUWYfSw5pd25x2ryQw1 YgbwELqFPGcjpwelAvM+wxO1TlIaGgHtalsLOCJggH ah1DCHETnrRWB9zq96MNdMjR9pAPJ6CjuGmpZHOQVqmH1CpTjagwHTbhwAyEsq6UyA0tn0geW20QWSVh Z2aeTVQn9LOyPYOlGEsVQwzaP9W5H0+U3l39u+Gul+GlaHy/Cfta4SBbNtILSxDKByxWO4t2Nq/wDCd+ D/APoa9D/8GMX/AMVWj/lulu/saP6JyuewdnzY6/nr 7isDQ3YjleZMTQ2BmU91I+EP6kx9L/sHS/tM3zWW5A4hc8aa0yI96LY56g1ntCk0AeTlQ+p+G5ejBT4P 9vSEDlOpyICmU2JgOXPIcVbLO06xOnpe95wJX77LG/gub0hA5mDRqi9bkxOHKWfLanubQfuZIgUe6T+H fSypceac7j0woItQIFbMbdvFNVLTRLDr1P9y3np220 NL/SXeChrSv6zRa99AmAFUWyc3Fev+nM7V35MwB8D4h+XM0Z4lqee74mxrzvlOOOCJeVBDvvY0wufQB4 bd+I9D0+/KejiW521rQgrb7pwCpkOAnxSEvmGb47HB5N1kll9iec3lrtM43yuno7lRCHxEus0XW0gmz9 hgKNZWos2ima8tLUbk4ixSumE06tXHKz04Cdj8nnRD mPWuHezu/Ngu24ywl2/GyyS16BzpqrVTgbYb1JsT4HWg9DCoq1DtmRzNnmQJw4dceWSLeh1uMCZx3zUl ZL3th95cjKeREcZ2J/Jt9oCDXtBxzeBTWD3wl5rCgbX41dM6m62n0lq9rWIMENNRPYFOngqvAdpidXKR KKACiiigAooooAKKKKACiiigAooooAKKKKACiiigAo oooAKKKKACiiigAooooAKKKKACiiigAooooAKKKKACiiigAooooAKKKKACiiigAooooAKKKKACiiigAo oooAKKKKACiiigAooooAKKKKACiiigAooooAKKKKACiiigAooooAKKKKACiiigAooooAKKKKACiiigAo oooAKKKKACiiigAooooAKKKKACiiigAHelioREGINEC iiigAooooAKKKKACiiigAooooAKKKKACiiigAooooAKKKKACiiigAooooAKKKKACiiigAHelioPETERSBURG MEDICAL CENTERC [file] Jv5ulfHIf+Ekuq+PEGxsuwZIqNgHJLTlAMlkbdXP04xxV5G+evp chief exploration officer+YW1t01/Ip/E3W5SkwyrbfeQDR6AQw xTneeDLA68Iv8W0c1K1FjzlqJEdeJt387d6c9ZDAfqdaCbzqfoOvLKKoSayx9QTClJCNlm7ebhXGdYVF xXqtJaKwnqwooooGFFFFABRRRQAUUUUAFFFFABRRRQ AUUUUAFFFFABRRRQAUUUUAFFFFABRRRQAUUUUAFFFFABRRRQAUUUUAFFFFABRRRQAUUUUAFFFFABRRRQ AUUUUAFFFFABRRRQAUUUUAFFFFABRRRQAUUUUAFFFFABRRRQAUUUUAFFFFABRRRQAUUUUAFFFFABRRRQ AUUUUAFFFFABRRRQAUUUUAFFFFABRRRQAUUUUAFFFF ABRRRQAUUUUAFFFFABRRRQAUUUUAFFFFABRRRQAUUUUAFFFFABRRRQAUUUUAFFFFABRRRQAUUUUAFFFF ABRRRQAUUUUAFFFFABRRRQAUUUUAFFFFABRRRQAUUUUAFFFFABRRRQAUUUUAFFFFABRRRQAUUUUAFFFF ABRRRQAUUUUAFFFFABRRRQAUUUUAFFFFABRRRQAUUU UAFFFFABRRRQAUUUUAFFFFABRRRQAUUUUAFFFFABRRRQAUUUUAFFFFABRRRQAUUUUAFFFFABRRRQAUUU UAFFFFABRRRQAUUUUAFFFFABRRRQAUUUUAFFFFABRRRQAUUUUAFFFFABRRRQAUUUUAFFFFABRRRQAUUU UAFFFFABRRRQAUUUUAFFFFABRRRQAUUUUAFFFFABRR PUAVTVEQHBFQIOYQWQLEUMHEHIWHPJQFGCKTUIFRBQLJpOxL7xwV2fLZZ1rzgScXN6yCocsD/yHMof4x kv/oJtUA6GusLxhsk+F2/Dz/oYf/JK4/2Gssqi2swAew0Aw/2l+51iTyrBvIk/gZcZ3yl+Ima13Z4U9K t32e1GVbL/AAqD/vE4tG9Y6HM3Tc3IF+G7R4viuJh1 wqaXML05aorOGS5cJzGq/OOHT8zUjPsGFQHSxwEb24fB/cLK7tmdtRM/XAw7pK1c26TbwElaXPopvW5w y3yi5Q0mA30mdJapEyifsmG2UQxrok5j+TwXS6HbHgq/dHi68hPp6YhllR9AO0+WyiPENtJ5ES5LT2ow performance improvement director+wNUacK3rpXZOKRyGGcrxZ0yov4VZdBl747wdCeI N+WiS25xbus/n9Py3hHtoB+nrxLkbjwjBE8WLa36yaXK3N04+Za1f6ywOihIwvvvKiVNxN0paykBoune Bm2yIyvqlHpdzwC7buBPKvM2C2b8D5T4HT2o+UEtA0arOx3Dgb6AVl9zOKsaFMlTjgvQVX046PxCfrL1 k4cy1n7ccgqsjZl/l698y7JshPuTSAaRW7GJ2gVRX3 2yc1Hx6aUV80BIFIYUlsF3yiK4Sh3yrliTsj5A12RmwHTM9O3VbHLP5C+LdT+Bi8mxC5whpxHx25khUJ 2iilPjFi1pfoplSBAjpbDxHMLqMpILaS/wAa/vWKnt1oGmyBG27NZD+JPxJssjY2gz7Lnc9i/wBdhrc9 pwY329WLse/b0VFpknUAJw4bltRCq1NB2ZqgEwM7Rc KpJblkjpn4iYmITSa1nrcs9nozYavOURwkgmWjjBCaaBoKpOX6UH683tDahRDm0G0coOm/Z+j6MYMBE6 VyriKJPL7FQoa6QQc9SWH1ab7/e4j1Ghuz+pYGisq3/wC4k/bsgKA2nc3C+7mvL9K+SZd9n7LsK3fong Y+ZBf9yYuD89otKywvMEplLZ+A2k0GLF8gu2/j2+Mn /XeD/wBGvSe1/wCug/6IdX5UCD2gpgk82/FijdlVKWeuLjB2lUVAfeJfb4QE9y2WBLwUW2E78cMiS8un 2A5dImKpuBQY2T0QmvvqKuhrdU3/2rf+DWkXTgGlnaA8Lza0+jJVfifRbOcXBM6uohOjaFn1K2c4sacx CF6QVp8M4B40pZcoKB6SH2akAMNRQFrrbbeBs/hVfQ pi3qkLoLOh0VoB3g8ViYUZr3GKT5YWrlpfXY/KyIGf2BTxSs1mgj/uW3HBKC3wGOEwSpfE0VX60fe/AI UX+uiP3c4IkRAOuvh013hRuEY06ijMBnGNRoH6TTypzUnulkothnSM0jmQucQvmJscyP/s/F3mekll8X hOzPEQ56SK9puOqVNpBhPSkfsXX5K+J3iXU/CHg3U9 Kztz9L4P/NpcRNEHikcMFxyCQpPPByAetC1/B7Tqu3wNEmtmf/bfqw6F1U6MbQyOd8cf2nQfs66mLc7v lFBBaToWl2G9nREJB7f0f773G5onid+S7lEI39ORJPWA8shrFInQ54KXHKKEMM5cz1VWXgTLlGNOdZy5 32l0b0PtYvcojbz1zK3mkVzaNK4FiK2p6tyGNYOYaT XsCrzLw73idrivXDGakpV5pMc2k3ChuErUHocgNCDbUulZDW6/osY4WFDZ5cnJGxtk650TCCze1r/w5p 27HRGP81kEx536zr0RAn8QdCwS55gsnbW6mtgBsR/roqfp1ElnVKnoJVbJnkgzLM7F683EINAnbG5BCu +JtI12+1Qp1423+310FgurMCpfHdZDRsNY735S3S2D VsDNjxyQ4QgcBRvoPWjKq6HyMmaCBWnmp7RBGZJ9JJmQejzdlKTK3WY2WHI/dKoqv60Qy3R+NLY5RgMi 6CQJa7s3628aT3BqaJWN8fd64337RX7VvE3zwlJZn201QZYhhSJTQc2BQ9OxJeNbKtzeZsW3E6/xJH4f jvAox2XsmaYtrKM9DaLhIr7RI1OoI7K4C+edT8v/AI Vr8R/tG37f/rVCToJrxf0ijpIbjrl+NHUdj1/cS1TlB6tB9zt9r1KEruWZ0zW4IsePzHk8JUQXa22GQd l5B2zVFQT5vLZeFgTcYjJF7ZJ5WgZHPWsbHu+fe324mUhJibtcFTVS5/D6JqCjl6zIXKXlaUMPawTWs/ RlxxZ3we9JQA/AKmoS740V4fT+FVFiy39fVHqmtakT cfLHkemaP6/MH3jxm1sjHwXmSvn3Ob0aOPTt2VQ0nRR/rcxoQeEhyPna1U6v+Kf2tV2fJ9sZqhrm8wo9 AVYJyozfgQ0P8utrhFpH7AcZtmTz+qgaijEu6Asn8VyI/MqTrNODYQzWxlpTk6WXU7R1/CInxIzWKxnN +EJ05EM95cPITfv0/ZbKzR7pMbhp0nWvoFn+MPD+kL qLX+pxQDTvL+8M7t5L8iqQDkWUU8IR6xIe/jfw3r+xKYh6nf7Liye2+9TjLw9gZVwkhJgQ5mM8qqYF7E No+n4DivwIas5i958d2+zywbH39XlKAeDjtp6HX3GtkrpCcHs8onKnJ+sHjyIgBHxXLEPb8GhtrY5mW0 kEMQ9lCqTyNsfl+H/KWnxzKQggxRk3CsloYs7lzFro GckOAce/TiodD+VbfXjQwpahmXvMIhjZSSIZxowTSqUFWx8CBXhVehcnCk4bzgP6sDbB8TP5LWJk0Thu lF+VjUOwOudUNt5IsJ6S+VIZ8WO5G3KsfrlQLw6jLuws5lF1Qrvb1u39nvm6axNes1K5imIz1sSU7qb8 Lyz1VRYsNX8Kg5lKllPImWHniP4x3baZm0Xvg6ljsj Sa3qB2DA+dV2WETY9VtftRmV4/6Fc4CsGt/tL/AISZc5+6l50Crlw9716kO4F7ND7Bx82Sbhb0G/b9r5 +47h7V99epEre40cfOI8uQLPezpTYRkOvsYNoa4114ksKFauGaejOwTZm55Tcpenp2e2P+uPT2VBmiQe IzalRmz2UjrWwf/SvI/Z0uiNllLrfzyiuwJuOuHt4v zHvaky362in1JHtFBhNkp2QcHg7Fe3CNeQ0KC7fGZ+d+LukeHg7ID76OEWEe/RunzSgdwGyHhTBK6iZ1 IzLfPrITV0OTnkfatB0wXoMnVM5/eA49+wEm2aktm/U3Gibbfzz67cglnUxp3vKrbCq6FVQDY67NRFuf cR8M/Ddh4i+E23PxDttNfdL8sCBqgBfrr7tMieaLVk SIwhHI3G9WiQaawISie8Wbv2cEC1deEmREphZsjKX62QxxlrgeaCQ8DQANDcXZjQKf61s3GgGjv9ZKdi k61yar9oYJX0uAAJN5NjqvKJ0E+YOvjwyJyprd0DyLznmO5B/xSpuez7Onu4dfFGYvtLzNskW+tDfYF5 mgTc17nimLBx9Y8l7+93ooTFPrUCvSNtXBUXEy6H4k 0jsPVk1GoEyrwIjiDBzfGmz5LCDU3sxoIpzExY4d/T9F+GPrwRtpPehvd1x7hsTW2KbC1bge0PqHJ0Rv iI8A4kgE4EDjBqVRtCvBxTyGtxCQEG0eh/IqlCUNnmluazpb9M5D8lidmwWYmuapLughyFXBWIESjdgg AooooAKKKKACiiigAooooAKKKKACiiigAooooAKKKK ACiiigAooooAKKKKACiiigAooooAKKKKACiiigAooooAKKKKACiiigAooooAKKKKACiiigAooooAKKKK ACiiigAooooAKKKKACiiigAooooAKKKKACiiigAooooAKKKKACiiigAooooAKKKKACiiigAooooAKKKK ACiiigAooooAKKKKACiiigAooooAKKKKACiiigAooo mJBp6pvoyjNj0mCIFTyLSdL1PsYKl65s8WXgfgGsM0H9KyD9PBCbmXlQjLtyC1zbgAIY5w/FIFzNzY4a 685OSeS5w6JYNHl4k3xy5msYw32pa0ECsmxmRIKMPsCnpLLiGi+wri3N6cnMOsDwAuq5ZDfrtJzu5FHX zpE77n0dH1v0jOzjSbKIkNrz58YWnb5nv4eKcfsDPE Bfe8gI5J6DDE0D5oEOLSMssXlYJkTA7D4S6839IORWlwBdlZxKx4dOef+RvmkjWZVOC4I13FRBa/HmQZ Ntmm7lGenPiS4x4qdNdX3F7/3Cm28CFihEnfJVCMUiEBG/CNx0vVhk3Jkk0lRjBWLbXYZcGMe/hhB4R1 VHAqoBexHJSRHiTAKiFT7FO199IdT+VNsOE0D0/wAM eINZ0p/MyuZp0c8vfN7jwprvW2/UnPjG5aUqab4jap0re7ihVxqUX+3+Bza4p122DjUfoMWKfqsiTQ5m mqm3lDmdEtk9r+raOUq3woON5+5N0mgHrRX0mm2/e8YO4fVrWHI0llW3CY679mv9FY5M5ZLZ+la1T7DR J3dl5UVbnwX3zYVPfPAO2vz6cmQ33C3Y+VHVCnBd7B +L2e71U3Mpwm4zWGoxCAEDLKf2tlRMA3IdiWz0oKA2ZQVor9m+F0hD6XLg/c+CjehZwIWnvYstUd1Gu+ SvMjEHIwBxnPJqzc/WFS5lcJ0Dv5KMhNFF2NMp/CAajRkoBfbc2n6RbpJ6L+XAes2C4FvU2zJrefGaPa YTmxGBFXSieGkFpZajvLuzVwFO4R2K2G3Isjz6M3hL sS02qK3F+vrTq80py0I4mqKKLdVLh7U90cawyuAQB7niRaG5HT7dPfldin5p/Bje7qsl9KvWlC5gX5n+ ThGr96Hf92RY7gHnrTXiUmcA8tiaSuAmw27HcuB8PumWzkoRjo9QM07iCyP9u5ha3rMoC1NEidjoG4Kt zKmOJEC30P3T78+H+l+DrI7PoGU3I0GM5ERzBKfwuR +RwYiV/wBZG6Z+Cu5eAtbZafc/AUFzoh7k9EaEuVlHw2mt4HasVNrOEePNogonbHG4MJfrsFMY2I4aPQ 0+jkfJTZLdd50Cnm3CXfxTA56X1H4T2N3VtaB6grr86xYl6VlnP/uKQ9FnRT8+X4A+vz/E4TS/BXiTUP Naz5n3TA1dj/3cP7Pcu6adcGbqbk+/olQgZ994Y7y/ HU27Oyq6AyVPv2Tm7ja2q4tKinzeRYuSRRLLBCthAAB8XC0UUZVa9zY4gcnb+jR6LzhcLW8Zuhk7z/hh FtyG+GNUh0odq49q6s6v+IFqwp4wXkaC3tcEFkQxbYKFeTz4FrVhmf9ya6ZWkw6Obg6Hg4gbGrHvw6jf dI7czZOfKhJuTeqRXrGVqjM8YHRPc1pb6CTSs3/Qo/ YuqL7CONNa4fzy23QCtlZJwJb6jZFhOC4sgNKJInzD2vvj5/4L8RW/jz/yPxAB7zhJapjjD1y03KT8kb YwwKDOflX0+022DuWlG8W3W+S71N0HhmvamU+iEGV0hTpHyA89C4uwUclGNmZUzGjXIHEniX0AN4e7ck 63c4T2jN6ak1sYwvMOR1rN7SQbt1QSjG3hQPHNDbA4 4L2DisiUzRXyLgkBTCjqJBBaIqVK4QbJgXq0SJ2EwG9NdkPowf5Tv/0G0L9dQuNl6WUoGXHKmLSbUMJv QqlABtFHpmhzhzpGhIR1SQavqGAwmCIViXOq3KHgpTMbrDXfIQKKtIctFzw1r23BithMp69zch2bdyXz t9x4U9Qflr+Gvg+t5Ui80o5ONXqCheHRRmpsDiZycU +t7fo1XODFb/h/0X6GEbNF4kZWDmaiXOAPYdWq1JZtfrTur2s3B78eULli9B6WJGvFevSuPT1T3Umlmm cviQnzT4WybGA0PDnivrm46H1Bjl/knq0WaBsaAvUdEYGIcJemsfBwqFELljdpV8ZwRIhfuv5ixvn+Re F1icfKjRvfDsSWaLUA8statgV0a10MrWqAaJ/iG30a WREOReTvxUCPotJC5S+lLRU4EMve+z7xr0be3rfyou0MqAk1U8/cEcgjsRyKvUUAc/b5hwx6fVyJUq3m kQJptxkzQNl/LY4tGBVLrwwdHpVDUnxBlz7OTb9toMfb3sq8Q/TzJhTSf9NA8oXZ2WSC4adGjxahEh8K 0m2+r4xMIbYyE0NnUjZJVYgrKiTeRcqYiXoXXli3Yn IM6bIrEh9xOPgaVg1fHEHV26XzZZ4FkeWhXCuRnfcCWr98tf4/AKhyN0QTjavU8/TcRXgUd5FehfKbyi SETO5d52YCCZBGV89uotLgtP6XLdLgqd4dyLi4igZqvKLxA6UpZeRZITrxBgSrdseb5m8xonH36aWoCL 3s2+Ytmab34lIzZs6GYYPMEWIVGLZNPAZTELZQQPGN RRQAUUUUAFFFFABRRRQAUUUUAFFFFABRRRQAUUUUAFFFFABRRRQAUUUUAFFFFABRRRQAUUUUAFFFFABR RRQAUUUUAFFFFABRRRQAUUUUAFFFFABRRRQAUUUUAFFFFABRRRQAUUUUAFFFFABRRRQAUUUUAFFFFABR RRQAUUUUAFFFFABRRRQAUUUUAFFFFABRRRQAUUUUAF FFFABRRRQAUUUUAFFFFABRRRQAUUUUAFFFFABRRRQAUUUUAFFFFABRRRQAUUUUAFFFFABRRRQAUUUUAF FFFABRRRQAUUUUAYc/gvwrdXEtxceGdGmnlcvJJJYRMzsTkkkrkknnNR/8IJ4P/wChU0P/AMF0P/xNdB RQBz//AAgng/8A6FTQ/wDwXQ//ABNH/CCeD/8AoVND /wDBdD/8TXQUUAc//wAIJ4P/BPuG1U3U7J4C/wATR/wgng//AKFTQ/8AwXQ//C58GMDTW/8ACCeD/wDo VND/APBdD/2HH0c0NI3V/wChU0P/AMF0P/xNdBRQBz//AAgng/8A6FTQ/wDwXQ//ABNH/CCeD/8AoVND /wDBdD/8TXQUUAc//wAIJ4P/CXjF2Z8E4V0P/wATR/ wgng//AKFTQ/8AwXQ//G47QKKHV/8ACCeD/wDoVND/APBdD/8GH1r3TL7R/wChU0P/AMF0P/xNdBRQBz //AAgng/8A6FTQ/wDwXQ//ABNH/CCeD/8AoVND/wDBdD/8TXQUUAc//wAIJ4P/GYnL6R2S5R6D/wATR/ wgng//AKFTQ/8AwXQ//B66YELDZ/8ACCeD/wDoVND/ APBdD/0TW5j1SH6Y/wChU0P/AMF0P/xNdBRQBz//AAgng/8A6FTQ/wDwXQ//ABNH/CCeD/8AoVND/wDB dD/8TXQUUAc//wAIJ4P/DXaU8A2U7A8U/wATR/wgng//AKFTQ/8AwXQ//S89JCFUD/8ACCeD/wDoVND/ APBdD/2XM6z2SJ8B/wChU0P/AMF0P/xNdBRQBz//AA gng/8A6FTQ/wDwXQ//ABNH/CCeD/8AoVND/wDBdD/8TXQUUAc//wAIJ4P/KGrL1N3L2H0L/wATR/wgng //AKFTQ/8AwXQ//L67ULVIV/8ACCeD/wDoVND/APBdD/1KW5u7ER4W/wChU0P/AMF0P/xNdBRQBz//AA gng/8A6FTQ/wDwXQ//ABNH/CCeD/8AoVND/wDBdD/8 TXQUUAc//wAIJ4P/UGoG0H3N3D0B/wATR/wgng//AKFTQ/8AwXQ//B35QEZEH/8ACCeD/wDoVND/APBd D/0MS9z6TT5X/wChU0P/AMF0P/xNdBRQBz//AAgng/8A6FTQ/wDwXQ//ABNH/CCeD/8AoVND/wDBdD/8 TXQUUAc//wAIJ4P/SMbT6P6F7U6P/wATR/wgng//AK FTQ/8AwXQ//Q78IBNZC/8ACCeD/wDoVND/APBdD/7FH8l6CK3J/wChU0P/AMF0P/xNdBRQBz//AAgng/ 8A6FTQ/wDwXQ//ABNH/CCeD/8AoVND/wDBdD/8TXQUUAc//wAIJ4P/YKwI4G6Z9T4V/wATR/wgng//AK FTQ/8AwXQ//X79ZZHAN/8ACCeD/wDoVND/APBdD/8A M8t1TX8Y/wChU0P/AMF0P/xNdBRQBz//AAgng/8A6FTQ/wDwXQ//ABNH/CCeD/8AoVND/wDBdD/8TXQU UAc//wAIJ4P/YDaG0T7I4B9C/wATR/wgng//AKFTQ/8AwXQ//T93ZGEBG/8ACCeD/wDoVND/APBdD/8A R3q2OM3X/wChU0P/AMF0P/dWuBKSYl1EaAr0sk1TdE /ImQ1oixvhjl84DTHBHKiSgvolSyNKVSYYQNOJCHLTQPZKIAFOQLXLKSQRLRDGFWOVKRXLSPKDEARQ QAUUUUAFFFFABRRRQAUUUUAFFFFABRRRQAUUUUAFFFFABRRRQAUUUUAFFFFABRRRQAUUUUAFFFFABRRR QAUUUUAFFFFABRRRQAUUUUAFFFFABRRRQAUUUUAFFF FABRRRQAUUUUAFFFFABRRRQAUUUUAFFFFABRRRQAUUUUAFFFFABRRRQAUUUUAFFFFABRRRQAUUUUAFFF FABRRRQAUUUUAFFFFABRRRQAUUUUAFFFFABRRRQAUUUUAFFFFABRRRQAUUUUAFFFFABRRRQAUUUUAFFF FABRRRQAUUUUAFFFFABRRRQAUUUUAFFFFABRRRQAUU UUAFFFFABRRRQAUUUUAFFFFABRRRQAUUUUAFFFFABRRRQAUUUUAFFFFABRRRQAUUUUAFFFFABRRRQAUU UUAFFFFABRRRQAUUUUAFFFFABRRRQAUUUUAFFFFABRRRQAUUUUAFFFFABRRRQAUUUUAFFFFABRRRQAUU UUAFFFFABRRRQAUUUUAFFFFABRRRQAUUUUAFFFFABR RRQAUUUUAFFFFABRRRQAUUUUAFFFFABRRRQAUUUUAFFFFABRRRQAUUUUAFFFFABRRRQAUUUUAFFFFABR RRQAUUUUAFFFFABRRRQAUUUUAFFFFABRRRQAUUUUAFFFFABRRRQAUUUUAFFFFABRRRQAUUUUAFFFFABR RRQAUUUUAFFFFABRRRQAUUUUAFFFFABRRRQAUUUUAF FFFABRRRQAUUUUAFFFFABRRRQAUUUUAFFFFABRRRQAUUUUAFFFFABRRRQAUUUUAFFFFABRRRQAUUUUAF FFFABRRRQAUUUUAFFFFABRRRQAUUUUAFFFFABRRRQAUUUUAFFFFABRRRQAUUUUAFFFFABRRRQAUUUUAF FFFABRRRQAUUUUAFFFFABRRRQAUUUUAFFFFABRRRQA UUUUAFFFFABRRRQAUUUUAFFFFABRRRQAUUUUAFFFFABRRRQAUUUUAFFFFABRRRQAUUUUAFFFFABRRRQA UUUUAFFFFABRRRQAUUUUAFFFFABRRRQAUUUUAFFFFABRRRQAUUUUAFFFFABRRRQAUUUUAFFFFABRRRQA UUUUAFFFFABRRRQAUUUUAFFFFABRRRQAUUUUAFFFFA BRRRQAUUUUAFFFFABRRRQAUUUUAFFFFABRRRQAUUUUAFFFFABRRRQAUUUUAFFFFABRRRQAUUUUAFFFFA BRRRQAUUUUAFFFFABRRRQAUUUUAFFFFABRRRQAUUUUAFFFFABRRRQAUUUUAFFFFABRRRQAUUUUAFFFFA BRRRQAUUUUAFFFFABRRRQAUUUUAFFFFABRRRQAUUUU AFFFFABRRRQAUUUUAFFFFABRRRQAUUUUAFFFFABRRRQAUUUUAFFFFABRRRQAUUUUAFFFFABRRRQAUUUU AFFFFABRRRQAUUUUAFFFFABRRRQAUUUUAFFFFABRRRQAUUUUAFFFFABRRRQAUUUUAFFFFABRRRQAUUUU AFFFFABRRRQAUUUUAFFFFABRRRQAUUUUAFFFFABRRR QAUUUUAFFFFABRRRQAUUUUAFFFFABRRRQAUUUUAFFFFABRRRQAUUUUAFFFFABRRRQAUUUUAFFFFABRRR QAUUUUAFFFFABRRRQAUUUUAFFFFABRRRQAUUUUAFFFFABRRRQAUUUUAFFFFABRRRQAUUUUAFFFFABRRR QAUUUUAFFFFABRRRQAUUUUAFFFFABRRRQAUUUUAFFF FABRRRQAUUUUAFFFFABRRRQAUUUUAFFFFABRRRQAUUUUAFFFFABRRRQAUUUUAFFFFABRRRQAUUUUAFFF FABRRRQAUUUUAFFFFABRRRQAUUUUAFFFFABRRRQAUUUUAFFFFABRRRQAUUUUAFFFFABRRRQAUUUUAFFF FABRRRQAUUUUAFFFFABRRRQAUUUUAFFFFABRRRQAUU UUAFFFFABRRRQAUUUUAFFFFABRRRQAUUUUAFFFFABRRRQAUUUUAFFFFABRRRQAUUUUAFFFFABRRRQAUU UUAFFFFABRRRQAUUUUAFFFFABRRRQAUUUUAFFFFABRRRQAUUUUAFFFFABRRRQAUUUUAFFFFABRRRQAUU UUAFFFFABRRRQAUUUUAFFFFABRRRQAUUUUAFFFFABR RRQAUUUUAFFFFABRRRQAUUUUAFFFFABRRRQAUUUUAFFFFABRRRQAUUUUAFFFFABRRRQAUUUUAFFFFABR RRQAUUUUAFFFFABRRRQAUUUUAFFFFABRRRQAUUUUAFFFFABRRRQAUUUUAFFFFABRRRQAUUUUAFFFFABR RRQAUUUUAFFFFABRRRQAUUUUAFFFFABRRRQAUUUUAF FFFABRRRQAUUUUAFFFFABRRRQAUUUUAFFFFABRRRQAUUUUAFFFFABRRRQAUUUUAFFFFABRRRQAUUUUAF FFFABRRRQAUUUUAFFFFABRRRQAUUUUAFFFFABRRRQAUUUUAFFFFABRRRQAUUUUAFFFFABRRRQAUUUUAF FFFABRRRQAUUUUAFFFFABRRRQAUUUUAFFFFABRRRQA UUUUAFFFFABRRRQAUUUUAFFFFABRRRQAUUUUAFFFFABRRRQAUUUUAFFFFABRRRQAUUUUAFFFFABRRRQA UUUUAFFFFABRRRQAUUUUAFFFFABRRRQAUUUUAFFFFABRRRQAUUUUAFFFFABRRRQAUUUUAFFFFABRRRQA UUUUAFFFFABRRRQAUUUUAFFFFABRRRQAUUUUAFFFFA BRRRQAUUUUAFFFFABRRRQAUUUUAFFFFABRRRQAUUUUAFFFFABRRRQAUUUUAFFFFABRRRQAUUUUAFFFFA BRRRQAUUUUAFFFFABRRRQAUUUUAFFFFABRRRQAUUUUAFFFFABRRRQAUUUUAFFFFABRRRQAUUUUAFFFFA BRRRQAUUUUAFFFFABRRRQAUUUUAFFFFABRRRQAUUUU AFFFFABRRRQAUUUUAFFFFABRRRQAUUUUAFFFFABRRRQAUUUUAFFFFABRRRQAUUUUAFFFFABRRRQAUUUU AFFFFABRRRQAUUUUAFFFFABRRRQAUUUUAFFFFABRRRQAUUUUAFFFFABRRRQAUUUUAFFFFABRRRQAUUUU AFFFFABRRRQAUUUUAFFFFABRRRQAUUUUAFFFFABRRR QAUUUUAFFFFABRRRQAUUUUAFFFFABRRRQAUUUUAFFFFABRRRQAUUUUAFFFFABRRRQAUUUUAFFFFABRRR QAUUUUAFFFFABRRRQAUUUUAFFFFABRRRQAUUUUAFFFFABRRRQAUUUUAFFFFABRRRQAUUUUAFFFFABRRR QAUUUUAFFFFABRRRQAUUUUAFFFFABRRRQAUUUUAFFF FABRRRQAUUUUAFFFFABRRRQAUUUUAFFFFABRRRQAUUUUAFFFFABRRRQAUUUUAFFFFABRRRQAUUUUAFFF FABRRRQAUUUUAFFFFABRRRQAUUUUAFFFFABRRRQAUUUUAFFFFABRRRQAUUUUAFFFFABRRRQAUUUUAFFF FABRRRQAUUUUAFFFFABRRRQAUUUUAFFFFABRRRQAUU UUAFFFFABRRRQAUUUUAFFFFABRRRQAUUUUAFFFFABRRRQAUUUUAFFFFABRRRQAUUUUAFFFFABRRRQAUU UUAFFFFABRRRQAUUUUAFFFFABRRRQAUUUUAFFFFABRRRQAUUUUAFFFFABRRRQAUUUUAFFFFABRRRQAUU UUAFFFFABRRRQAUUUUAFFFFABRRRQAUUUUAFFFFABR RRQAUUUUAFFFFABRRRQAUUUUAFFFFABRRRQAUUUUAFFFFABRRRQAUUUUAFFFFABRRRQAUUUUAFFFFABR RRQAUUUUAFFFFABRRRQAUUUUAFFFFABRRRQAUUUUAFFFFABRRRQAUUUUAFFFFABRRRQAUUUUAFFFFABR RRQAUUUUAFFFFABRRRQAUUUUAFFFFABRRRQAUUUUAF FFFABRRRQAUUUUAFFFFABRRRQAUUUUAFFFFABRRRQAUUUUAFFFFABRRRQAUUUUAFFFFABRRRQAUUUUAF FFFABRRRQAUUUUAFFFFABRRRQAUUUUAFFFFABRRRQAUUUUAFFFFABRRRQAUUUUAFFFFABRRRQAUUUUAF FFFABRRRQAUUUUAFFFFABRRRQAUUUUAFFFFABRRRQA UUUUAFFFFABRRRQAUUUUAFFFFABRRRQAUUUUAFFFFABRRRQAUUUUAFFFFABRRRQAUUUUAFFFFABRRRQA UUUUAFFFFABRRRQAUUUUAFFFFABRRRQAUUUUAFFFFABRRRQAUUUUAFFFFABRRRQAUUUUAFFFFABRRRQA UUUUAFFFFABRRRQAUUUUAFFFFABRRRQAUUUUAFFFFA BRRRQAUUUUAFFFFABRRRQAUUUUAFFFFABRRRQAUUUUAFFFFABRRRQAUUUUAFFFFABRRRQAUUUUAFFFFA BRRRQAUUUUAFFFFABRRRQAUUUUAFFFFABRRRQAUUUUAFFFFABRRRQAUUUUAFFFFABRRRQAUUUUAFFFFA BRRRQAUUUUAFFFFABRRRQAUUUUAFFFFABRRRQAUUUU AFFFFABRRRQAUUUUAFFFFABRRRQAUUUUAFFFFABRRRQAUUUUAFFFFABRRRQAUUUUAFFFFABRRRQAUUUU AFFFFABRRRQAUUUUAFFFFABRRRQAUUUUAFFFFABRRRQAUUUUAFFFFABRRRQAUUUUAFFFFABRRRQAUUUU AFFFFABRRRQAUUUUAFFFFABRRRQAUUUUAFFFFABRRR QAUUUUAFFFFABRRRQAUUUUAFFFFABRRRQAUUUUAFFFFABRRRQAUUUUAFFFFABRRRQAUUUUAFFFFABRRR QAUUUUAFFFFABRRRQAUUUUAFFFFABRRRQAUUUUAFFFFABRRRQAUUUUAFFFFABRRRQAUUUUAFFFFABRRR QAUUUUAFFFFABRRRQAUUUUAFFFFABRRRQAUUUUAFFF FABRRRQAUUUUAFFFFABRRRQAUUUUAFFFFABRRRQAUUUUAFFFFABRRRQAUUUUAFFFFABRRRQAUUUUAFFF FABRRRQAUUUUAFFFFABRRRQAUUUUAFFFFABRRRQAUUUUAFFFFABRRRQAUUUUAFFFFABRRRQAUUUUAFFF FABRRRQAUUUUAFFFFABRRRQAUUUUAFFFFABRRRQAUU UUAFFFFABRRRQAUUUUAFFFFABRRRQAUUUUAFFFFABRRRQAUUUUAFFFFABRRRQAUUUUAFFFFABRRRQAUU UUAFFFFABRRRQAUUUUAFFFFABRRRQAUUUUAFFFFABRRRQAUUUUAFFFFABRRRQAUUUUAFFFFABRRRQAUU UUAFFFFABRRRQAUUUUAFFFFABRRRQAUUUUAFFFFABR RRQAUUUUAFFFFABRRRQAUUUUAFFFFABRRRQAUUUUAFFFFABRRRQAUUUUAFFFFABRRRQAUUUUAFFFFABR RRQAUUUUAFFFFABRRRQAUUUUAFFFFABRRRQAUUUUAFFFFABRRRQAUUUUAFFFFABRRRQAUUUUAFFFFABR RRQAUUUUAFFFFABRRRQAUUUUAFFFFABRRRQAUUUUAF FFFABRRRQAUUUUAFFFFABRRRQAUUUUAFFFFABRRRQAUUUUAFFFFABRRRQAUUUUAFFFFABRRRQAUUUUAF FFFABRRRQAUUUUAFFFFABRRRQAUUUUAFFFFABRRRQAUUUUAFFFFABRRRQAUUUUAFFFFABRRRQAUUUUAF FFFABRRRQAUUUUAFFFFABRRRQAUUUUAFFFFABRRRQA UUUUAFFFFABRRRQAUUUUAFFFFABRRRQAUUUUAFFFFABRRRQAUUUUAFFFFABRRRQAUUUUAFFFFABRRRQA UUUUAFFFFABRRRQAUUUUAFFFFABRRRQAUUUUAFFFFABRRRQAUUUUAFFFFABRRRQAUUUUAFFFFABRRRQA UUUUAFFFFABRRRQAUUUUAFFFFABRRRQAUUUUAFFFFA BRRRQAUUUUAFFFFABRRRQAUUUUAFFFFABRRRQAUUUUAFFFFABRRRQAUUUUAFFFFABRRRQAUUUUAFFFFA BRRRQAUUUUAFFFFABRRRQAUUUUAFFFFABRRRQAUUUUAFFFFABRRRQAUUUUAFFFFABRRRQAUUUUAFFFFA BRRRQAUUUUAFFFFABRRRQAUUUUAFFFFABRRRQAUUUU AFFFFABRRRQAUUUUAFFFFABRRRQAUUUUAFFFFABRRRQAUUUUAFFFFABRRRQAUUUUAFFFFABRRRQAUUUU AFFFFABRRRQAUUUUAFFFFABRRRQAUUUUAFFFFABRRRQAUUUUAFFFFABRRRQAUUUUAFFFFABRRRQAUUUU AFFFFABRRRQAUUUUAFFFFABRRRQAUUUUAFFFFABRRR QAUUUUAFFFFABRRRQAUUUUAFFFFABRRRQAUUUUAFFFFABRRRQAUUUUAFFFFABRRRQAUUUUAFFFFABRRR QAUUUUAFFFFABRRRQAUUUUAFFFFABRRRQAUUUUAFFFFABRRRQAUUUUAFFFFABRRRQAUUUUAFFFFABRRR QAUUUUAFFFFABRRRQAUUUUAFFFFABRRRQAUUUUAFFF FABRRRQAUUUUAFFFFABRRRQAUUUUAFFFFABRRRQAUUUUAFFFFABRRRQAUUUUAFFFFABRRRQAUUUUAFFF FABRRRQAUUUUAFFFFABRRRQAUUUUAFFFFABRRRQAUUUUAFFFFABRRRQAUUUUAFFFFABRRRQAUUUUAFFF FABRRRQAUUUUAFFFFABRRRQAUUUUAFFFFABRRRQAUU UUAFFFFABRRRQAUUUUAFFFFABRRRQAUUUUAFFFFABRRRQAUUUUAFFFFABRRRQAUUUUAFFFFABRRRQAUU UUAFFFFABRRRQAUUUUAFFFFABRRRQAUUUUAFFFFABRRRQAUUUUAFFFFABRRRQAUUUUAFFFFABRRRQAUU UUAFFFFABRRRQAUUUUAFFFFABRRRQAUUUUAFFFFABR RRQAUUUUAFFFFABRRRQAUUUUAFFFFABRRRQAUUUUAFFFFABRRRQAUUUUAFFFFABRRRQAUUUUAFFFFABR RRQAUUUUAFFFFABRRRQAUUUUAFFFFABRRRQAUUUUAFFFFABRRRQAUUUUAFFFFABRRRQAUUUUAFFFFABR RRQAUUUUAFFFFABRRRQAUUUUAFFFFABRRRQAUUUUAF FFFABRRRQAUUUUAFFFFABRRRQAUUUUAFFFFABRRRQAUUUUAFFFFABRRRQAUUUUAFFFFABRRRQAUUUUAF FFFABRRRQAUUUUAFFFFABRRRQAUUUUAFFFFABRRRQAUUUUAFFFFABRRRQAUUUUAFFFFABRRRQAUUUUAF FFFABRRRQAUUUUAFFFFABRRRQAUUUUAFFFFABRRRQA UUUUAFFFFABRRRQAUUUUAFFFFABRRRQAUUUUAFFFFABRRRQAUUUUAFFFFABRRRQAUUUUAFFFFABRRRQA UUUUAFFFFABRRRQAUUUUAFFFFABRRRQAUUUUAFFFFABRRRQAUUUUAFFFFABRRRQAUUUUAFFFFABRRRQA UUUUAFFFFABRRRQAUUUUAFFFFABRRRQAUUUUAFFFFA BRRRQAUUUUAFFFFABRRRQAUUUUAFFFFABRRRQAUUUUAFFFFABRRRQAUUUUAFFFFABRRRQAUUUUAFFFFA BRRRQAUUUUAFFFFABRRRQAUUUUAFFFFABRRRQAUUUUAFFFFABRRRQAUUUUAFFFFABRRRQAUUUUAFFFFA BRRRQAUUUUAFFFFABRRRQAUUUUAFFFFABRRRQAUUUU AFFFFABRRRQAUUUUAFFFFABRRRQAUUUUAFFFFABRRRQAUUUUAFFFFABRRRQAUUUUAFFFFABRRRQAUUUU AFFFFABRRRQAUUUUAFFFFABRRRQAUUUUAFFFFABRRRQAUUUUAFFFFABRRRQAUUUUAFFFFABRRRQAUUUU AFFFFABRRRQAUUUUAFFFFABRRRQAUUUUAFFFFABRRR QAUUUUAFFFFABRRRQAUUUUAFFFFABRRRQAUUUUAFFFFABRRRQAUUUUAFFFFABRRRQAUUUUAFFFFABRRR QAUUUUAFFFFABRRRQAUUUUAFFFFABRRRQAUUUUAFFFFABRRRQAUUUUAFFFFABRRRQAUUUUAFFFFABRRR QAUUUUAFFFFABRRRQAUUUUAFFFFABRRRQAUUUUAFFF FABRRRQAUUUUAFFFFABRRRQAUUUUAFFFFABRRRQAUUUUAFFFFABRRRQAUUUUAFFFFABRRRQAUUUUAFFF FABRRRQAUUUUAFFFFABRRRQAUUUUAFFFFABRRRQAUUUUAFFFFABRRRQAUUUUAFFFFABRRRQAUUUUAFFF FABRRRQAUUUUAFFFFABRRRQAUUUUAFFFFABRRRQAUU UUAFFFFABRRRQAUUUUAFFFFABRRRQAUUUUAFFFFABRRRQAUUUUAFFFFABRRRQAUUUUAFFFFABRRRQAUU UUAFFFFABRRRQAUUUUAFFFFABRRRQAUUUUAFFFFABRRRQAUUUUAFFFFABRRRQAUUUUAFFFFABRRRQAUU UUAFFFFABRRRQAUUUUAFFFFABRRRQAUUUUAFFFFABR RRQAUUUUAFFFFABRRRQAUUUUAFFFFABRRRQAUUUUAFFFFABRRRQAUUUUAFFFFABRRRQAUUUUAFFFFABR RRQAUUUUAFFFFABRRRQAUUUUAFFFFABRRRQAUUUUAFFFFABRRRQAUUUUAFFFFABRRRQAUUUUAFFFFABR RRQAUUUUAFFFFABRRRQAUUUUAFFFFABRRRQAUUUUAF FFFABRRRQAUUUUAFFFFABRRRQAUUUUAFFFFABRRRQAUUUUAFFFFABRRRQAUUUUAFFFFABRRRQAUUUUAF FFFABRRRQAUUUUAFFFFABRRRQAUUUUAFFFFABRRRQAUUUUAFFFFABRRRQAUUUUAFFFFABRRRQAUUUUAF FFFABRRRQAUUUUAFFFFABRRRQAUUUUAFFFFABRRRQA UUUUAFFFFABRRRQAUUUUAFFFFABRRRQAUUUUAFFFFABRRRQAUUUUAFFFFABRRRQAUUUUAFFFFABRRRQA UUUUAFFFFABRRRQAUUUUAFFFFABRRRQAUUUUAFFFFABRRRQAUUUUAFFFFABRRRQAUUUUAFFFFABRRRQA UUUUAFFFFABRRRQAUUUUAFFFFABRRRQAUUUUAFFFFA BRRRQAUUUUAFFFFABRRRQAUUUUAFFFFABRRRQAUUUUAFFFFABRRRQAUUUUAFFFFABRRRQAUUUUAFFFFA BRRRQAUUUUAFFFFABRRRQAUUUUAFFFFABRRRQAUUUUAFFFFABRRRQAUUUUAFFFFABRRRQAUUUUAFFFFA BRRRQAUUUUAFFFFABRRRQAUUUUAFFFFABRRRQAUUUU AFFFFABRRRQAUUUUAFFFFABRRRQAUUUUAFFFFABRRRQAUUUUAFFFFABRRRQAUUUUAFFFFABRRRQAUUUU AFFFFABRRRQAUUUUAFFFFABRRRQAUUUUAFFFFABRRRQAUUUUAFFFFABRRRQAUUUUAFFFFABRRRQAUUUU AFFFFABRRRQAUUUUAFFFFABRRRQAUUUUAFFFFABRRR QAUUUUAFFFFABRRRQAUUUUAFFFFABRRRQAUUUUAFFFFABRRRQAUUUUAFFFFABRRRQAUUUUAFFFFABRRR QAUUUUAFFFFABRRRQAUUUUAFFFFABRRRQAUUUUAFFFFABRRRQAUUUUAFFFFABRRRQAUUUUAFFFFABRRR QAUUUUAFFFFABRRRQAUUUUAFFFFABRRRQAUUUUAFFF FABRRRQAUUUUAFFFFABRRRQAUUUUAFFFFABRRRQAUUUUAFFFFABRRRQAUUUUAFFFFABRRRQAUUUUAFFF FABRRRQAUUUUAFFFFABRRRQAUUUUAFFFFABRRRQAUUUUAFFFFABRRRQAUUUUAFFFFABRRRQAUUUUAFFF FABRRRQAUUUUAFFFFABRRRQAUUUUAFFFFABRRRQAUU UUAFFFFABRRRQAUUUUAFFFFABRRRQAUUUUAFFFFABRRRQAUUUUAFFFFABRRRQAUUUUAFFFFABRRRQAUU UUAFFFFABRRRQAUUUUAFFFFABRRRQAUUUUAFFFFABRRRQAUUUUAFFFFABRRRQAUUUUAFFFFABRRRQAUU UUAFFFFABRRRQAUUUUAFFFFABRRRQAUUUUAFFFFABR RRQAUUUUAFFFFABRRRQAUUUUAFFFFABRRRQAUUUUAFFFFABRRRQAUUUUAFFFFABRRRQAUUUUAFFFFABR RRQAUUUUAFFFFABRRRQAUUUUAFFFFABRRRQAUUUUAFFFFABRRRQAUUUUAFFFFABRRRQAUUUUAFFFFABR RRQAUUUUAFFFFABRRRQAUUUUAFFFFABRRRQAUUUUAF FFFABRRRQAUUUUAFFFFABRRRQAUUUUAFFFFABRRRQAUUUUAFFFFABRRRQAUUUUAFFFFABRRRQAUUUUAF FFFABRRRQAUUUUAFFFFABRRRQAUUUUAFFFFABRRRQAUUUUAFFFFABRRRQAUUUUAFFFFABRRRQAUUUUAF FFFABRRRQAUUUUAFFFFABRRRQAUUUUAFFFFABRRRQA UUUUAFFFFABRRRQAUUUUAFFFFABRRRQAUUUUAFFFFABRRRQAUUUUAFFFFABRRRQAUUUUAFFFFABRRRQA UUUUAFFFFABRRRQAUUUUAFFFFABRRRQAUUUUAFFFFABRRRQAUUUUAFFFFABRRRQAUUUUAFFFFABRRRQA UUUUAFFFFABRRRQAUUUUAFFFFABRRRQAUUUUAFFFFA BRRRQAUUUUAFFFFABRRRQAUUUUAFFFFABRRRQAUUUUAFFFFABRRRQAUUUUAFFFFABRRRQAUUUUAFFFFA BRRRQAUUUUAFFFFABRRRQAUUUUAFFFFABRRRQAUUUUAFFFFABRRRQAUUUUAFFFFABRRRQAUUUUAFFFFA BRRRQAUUUUAFFFFABRRRQAUUUUAFFFFABRRRQAUUUU AFFFFABRRRQAUUUUAFFFFABRRRQAUUUUAFFFFABRRRQAUUUUAFFFFABRRRQAUUUUAFFFFABRRRQAUUUU AFFFFABRRRQAUUUUAFFFFABRRRQAUUUUAFFFFABRRRQAUUUUAFFFFABRRRQAUUUUAFFFFABRRRQAUUUU AFFFFABRRRQAUUUUAFFFFABRRRQAUUUUAFFFFABRRR QAUUUUAFFFFABRRRQAUUUUAFFFFABRRRQAUUUUAFFFFABRRRQAUUUUAFFFFABRRRQAUUUUAFFFFABRRR QAUUUUAFFFFABRRRQAUUUUAFFFFABRRRQAUUUUAFFFFABRRRQAUUUUAFFFFABRRRQAUUUUAFFFFABRRR QAUUUUAFFFFABRRRQAUUUUAFFFFABRRRQAUUUUAFFF FABRRRQAUUUUAFFFFABRRRQAUUUUAFFFFABRRRQAUUUUAFFFFABRRRQAUUUUAFFFFABRRRQAUUUUAFFF FABRRRQAUUUUAFFFFABRRRQAUUUUAFFFFABRRRQAUUUUAFFFFABRRRQAUUUUAFFFFABRRRQAUUUUAFFF FABRRRQAUUUUAFFFFABRRRQAUUUUAFFFFABRRRQAUU UUAFFFFABRRRQAUUUUAFFFFABRRRQAUUUUAFFFFABRRRQAUUUUAFFFFABRRRQAUUUUAFFFFABRRRQAUU UUAFFFFABRRRQAUUUUAFFFFABRRRQAUUUUAFFFFABRRRQAUUUUAFFFFABRRRQAUUUUAFFFFABRRRQAUU UUAFFFFABRRRQAUUUUAFFFFABRRRQAUUUUAFFFFABR RRQAUUUUAFFFFABRRRQAUUUUAFFFFABRRRQAUUUUAFFFFABRRRQAUUUUAFFFFABRRRQAUUUUAFFFFABR RRQAUUUUAFFFFABRRRQAUUUUAFFFFABRRRQAUUUUAFFFFABRRRQAUUUUAFFFFABRRRQAUUUUAFFFFABR RRQAUUUUAFFFFABRRRQAUUUUAFFFFABRRRQAUUUUAF FFFABRRRQAUUUUAFFFFABRRRQAUUUUAFFFFABRRRQAUUUUAFFFFABRRRQAUUUUAFFFFABRRRQAUUUUAF FFFABRRRQAUUUUAFFFFABRRRQAUUUUAFFFFABRRRQAUUUUAFFFFABRRRQAUUUUAFFFFABRRRQAUUUUAF FFFABRRRQAUUUUAFFFFABRRRQAUUUUAFFFFABRRRQA UUUUAFFFFABRRRQAUUUUAFFFFABRRRQAUUUUAFFFFABRRRQAUUUUAFFFFABRRRQAUUUUAFFFFABRRRQA UUUUAFFFFABRRRQAUUUUAFFFFABRRRQAUUUUAFFFFABRRRQAUUUUAFFFFABRRRQAUUUUAFFFFABRRRQA UUUUAFFFFABRRRQAUUUUAFFFFABRRRQAUUUUAFFFFA BRRRQAUUUUAFFFFABRRRQAUUUUAFFFFABRRRQAUUUUAFFFFABRRRQAUUUUAFFFFABRRRQAUUUUAFFFFA BRRRQAUUUUAFFFFABRRRQAUUUUAFFFFABRRRQAUUUUAFFFFABRRRQAUUUUAFFFFABRRRQAUUUUAFFFFA BRRRQAUUUUAFFFFABRRRQAUUUUAFFFFABRRRQAUUUU AFFFFABRRRQAUUUUAFFFFABRRRQAUUUUAFFFFABRRRQAUUUUAFFFFABRRRQAUUUUAFFFFABRRRQAUUUU AFFFFABRRRQAUUUUAFFFFABRRRQAUUUUAFFFFABRRRQAUUUUAFFFFABRRRQAUUUUAFFFFABRRRQAUUUU AFFFFABRRRQAUUUUAFFFFABRRRQAUUUUAFFFFABRRR QAUUUUAFFFFABRRRQAUUUUAFFFFABRRRQAUUUUAFFFFABRRRQAUUUUAFFFFABRRRQAUUUUAFFFFABRRR QAUUUUAFFFFABRRRQAUUUUAFFFFABRRRQAUUUUAFFFFABRRRQAUUUUAFFFFABRRRQAUUUUAFFFFABRRR QAUUUUAFFFFABRRRQAUUUUAFFFFABRRRQAUUUUAFFF FABRRRQAUUUUAFFFFABRRRQAUUUUAFFFFABRRRQAUUUUAFFFFABRRRQAUUUUAFFFFABRRRQAUUUUAFFF FABRRRQAUUUUAFFFFABRRRQAUUUUAFFFFABRRRQAUUUUAFFFFABRRRQAUUUUAFFFFABRRRQAUUUUAFFF FABRRRQAUUUUAFFFFABRRRQAUUUUAFFFFABRRRQAUU UUAFFFFABRRRQAUUUUAFFFFABRRRQAUUUUAFFFFABRRRQAUUUUAFFFFABRRRQAUUUUAFFFFABRRRQAUU UUAFFFFABRRRQAUUUUAFFFFABRRRQAUUUUAFFFFABRRRQAUUUUAFFFFABRRRQAUUUUAFFFFABRRRQAUU UUAFFFFABRRRQAUUUUAFFFFABRRRQAUUUUAFFFFABR RRQAUUUUAFFFFABRRRQAUUUUAFFFFABRRRQAUUUUAFFFFABRRRQAUUUUAFFFFABRRRQAUUUUAFFFFABR RRQAUUUUAFFFFABRRRQAUUUUAFFFFABRRRQAUUUUAFFFFABRRRQAUUUUAFFFFABRRRQAUUUUAFFFFABR RRQAUUUUAFFFFABRRRQAUUUUAFFFFABRRRQAUUUUAF FFFABRRRQAUUUUAFFFFABRRRQAUUUUAFFFFABRRRQAUUUUAFFFFABRRRQAUUUUAFFFFABRRRQAUUUUAF FFFABRRRQAUUUUAFFFFABRRRQAUUUUAFFFFABRRRQAUUUUAFFFFABRRRQAUUUUAFFFFABRRRQAUUUUAF FFFABRRRQAUUUUAFFFFABRRRQAUUUUAFFFFABRRRQA UUUUAFFFFABRRRQAUUUUAFFFFABRRRQAUUUUAFFFFABRRRQAUUUUAFFFFABRRRQAUUUUAFFFFABRRRQA UUUUAFFFFABRRRQAUUUUAFFFFABRRRQAUUUUAFFFFABRRRQAUUUUAFFFFABRRRQAUUUUAFFFFABRRRQA UUUUAFFFFABRRRQAUUUUAFFFFABRRRQAUUUUAFFFFA BRRRQAUUUUAFFFFABRRRQAUUUUAFFFFABRRRQAUUUUAFFFFABRRRQAUUUUAFFFFABRRRQAUUUUAFFFFA BRRRQAUUUUAFFFFABRRRQAUUUUAFFFFABRRRQAUUUUAFFFFABRRRQAUUUUAFFFFABRRRQAUUUUAFFFFA BRRRQAUUUUAFFFFABRRRQAUUUUAFFFFABRRRQAUUUU AFFFFABRRRQAUUUUAFFFFABRRRQAUUUUAFFFFABRRRQAUUUUAFFFFABRRRQAUUUUAFFFFABRRRQAUUUU AFFFFABRRRQAUUUUAFFFFABRRRQAUUUUAFFFFABRRRQAUUUUAFFFFABRRRQAUUUUAFFFFABRRRQAUUUU AFFFFABRRRQAUUUUAFFFFABRRRQAUUUUAFFFFABRRR QAUUUUAFFFFABRRRQAUUUUAFFFFABRRRQAUUUUAFFFFABRRRQAUUUUAFFFFABRRRQAUUUUAFFFFABRRR QAUUUUAFFFFABRRRQAUUUUAFFFFABRRRQAUUUUAFFFFABRRRQAUUUUAFFFFABRRRQAUUUUAFFFFABRRR QAUUUUAFFFFABRRRQAUUUUAFFFFABRRRQAUUUUAFFF FABRRRQAUUUUAFFFFABRRRQAUUUUAFFFFABRRRQAUUUUAFFFFABRRRQAUUUUAFFFFABRRRQAUUUUAFFF FABRRRQAUUUUAFFFFABRRRQAUUUUAFFFFABRRRQAUUUUAFFFFABRRRQAUUUUAFFFFABRRRQAUUUUAFFF FABRRRQAUUUUAFFFFABRRRQAUUUUAFFFFABRRRQAUU UUAFFFFABRRRQAUUUUAFFFFABRRRQAUUUUAFFFFABRRRQAUUUUAFFFFABRRRQAUUUUAFFFFABRRRQAUU UUAFFFFABRRRQAUUUUAFFFFABRRRQAUUUUAFFFFABRRRQAUUUUAFFFFABRRRQAUUUUAFFFFABRRRQAUU UUAFFFFABRRRQAUUUUAFFFFABRRRQAUUUUAFFFFABR RRQAUUUUAFFFFABRRRQAUUUUAFFFFABRRRQAUUUUAFFFFABRRRQAUUUUAFFFFABRRRQAUUUUAFFFFABR RRQAUUUUAFFFFABRRRQAUUUUAFFFFABRRRQAUUUUAFFFFABRRRQAUUUUAFFFFABRRRQAUUUUAFFFFABR RRQAUUUUAFFFFABRRRQAUUUUAFFFFABRRRQAUUUUAF FFFABRRRQAUUUUAFFFFABRRRQAUUUUAFFFFABRRRQAUUUUAFFFFABRRRQAUUUUAFFFFABRRRQAUUUUAF FFFABRRRQAUUUUAFFFFABRRRQAUUUUAFFFFABRRRQAUUUUAFFFFABRRRQAUUUUAFFFFABRRRQAUUUUAF FFFABRRRQAUUUUAFFFFABRRRQAUUUUAFFFFABRRRQA UUUUAFFFFABRRRQAUUUUAFFFFABRRRQAUUUUAFFFFABRRRQAUUUUAFFFFABRRRQAUUUUAFFFFABRRRQA UUUUAFFFFABRRRQAUUUUAFFFFABRRRQAUUUUAFFFFABRRRQAUUUUAFFFFABRRRQAUUUUAFFFFABRRRQA UUUUAFFFFABRRRQAUUUUAFFFFABRRRQAUUUUAFFFFA BRRRQAUUUUAFFFFABRRRQAUUUUAFFFFABRRRQAUUUUAFFFFABRRRQAUUUUAFFFFABRRRQAUUUUAFFFFA BRRRQAUUUUAFFFFABRRRQAUUUUAFFFFABRRRQAUUUUAFFFFABRRRQAUUUUAFFFFABRRRQAUUUUAFFFFA BRRRQAUUUUAFFFFABRRRQAUUUUAFFFFABRRRQAUUUU AFFFFABRRRQAUUUUAFFFFABRRRQAUUUUAFFFFABRRRQAUUUUAFFFFABRRRQAUUUUAFFFFABRRRQAUUUU AFFFFABRRRQAUUUUAFFFFABRRRQAUUUUAFFFFABRRRQAUUUUAFFFFABRRRQAUUUUAFFFFABRRRQAUUUU AFFFFABRRRQAUUUUAFFFFABRRRQAUUUUAFFFFABRRR QAUUUUAFFFFABRRRQAUUUUAFFFFABRRRQAUUUUAFFFFABRRRQAUUUUAFFFFABRRRQAUUUUAFFFFABRRR QAUUUUAFFFFABRRRQAUUUUAFFFFABRRRQAUUUUAFFFFABRRRQAUUUUAFFFFABRRRQAUUUUAFFFFABRRR QAUUUUAFFFFABRRRQAUUUUAFFFFABRRRQAUUUUAFFF FABRRRQAUUUUAFFFFABRRRQAUUUUAFFFFABRRRQAUUUUAFFFFABRRRQAUUUUAFFFFABRRRQAUUUUAFFF FABRRRQAUUUUAFFFFABRRRQAUUUUAFFFFABRRRQAUUUUAFFFFABRRRQAUUUUAFFFFABRRRQAUUUUAFFF FABRRRQAUUUUAFFFFABRRRQAUUUUAFFFFABRRRQAUU UUAFFFFABRRRQAUUUUAFFFFABRRRQAUUUUAFFFFABRRRQAUUUUAFFFFABRRRQAUUUUAFFFFABRRRQAUU UUAFFFFABRRRQAUUUUAFFFFABRRRQAUUUUAFFFFABRRRQAUUUUAFFFFABRRRQAUUUUAFFFFABRRRQAUU UUAFFFFABRRRQAUUUUAFFFFABRRRQAUUUUAFFFFABR RRQAUUUUAFFFFABRRRQAUUUUAFFFFABRRRQAUUUUAFFFFABRRRQAUUUUAFFFFABRRRQAUUUUAFFFFABR RRQAUUUUAFFFFABRRRQAUUUUAFFFFABRRRQAUUUUAFFFFABRRRQAUUUUAFFFFABRRRQAUUUUAFFFFABR RRQAUUUUAFFFFABRRRQAUUUUAFFFFABRRRQAUUUUAF FFFABRRRQAUUUUAFFFFABRRRQAUUUUAFFFFABRRRQAUUUUAFFFFABRRRQAUUUUAFFFFABRRRQAUUUUAF FFFABRRRQAUUUUAFFFFABRRRQAUUUUAFFFFABRRRQAUUUUAFFFFABRRRQAUUUUAFFFFABRRRQAUUUUAF FFFABRRRQAUUUUAFFFFABRRRQAUUUUAFFFFABRRRQA UUUUAFFFFABRRRQAUUUUAFFFFABRRRQAUUUUAFFFFABRRRQAUUUUAFFFFABRRRQAUUUUAFFFFABRRRQA UUUUAFFFFABRRRQAUUUUAFFFFABRRRQAUUUUAFFFFABRRRQAUUUUAFFFFABRRRQAUUUUAFFFFABRRRQA UUUUAFFFFABRRRQAUUUUAFFFFABRRRQAUUUUAFFFFA BRRRQAUUUUAFFFFABRRRQAUUUUAFFFFABRRRQAUUUUAFFFFABRRRQAUUUUAFFFFABRRRQAUUUUAFFFFA BRRRQAUUUUAFFFFABRRRQAUUUUAFFFFABRRRQAUUUUAFFFFABRRRQAUUUUAFFFFABRRRQAUUUUAFFFFA BRRRQAUUUUAFFFFABRRRQAUUUUAFFFFABRRRQAUUUU AFFFFABRRRQAUUUUAFFFFABRRRQAUUUUAFFFFABRRRQAUUUUAFFFFABRRRQAUUUUAFFFFABRRRQAUUUU AFFFFABRRRQAUUUUAFFFFABRRRQAUUUUAFFFFABRRRQAUUUUAFFFFABRRRQAUUUUAFFFFABRRRQAUUUU AFFFFABRRRQAUUUUAFFFFABRRRQAUUUUAFFFFABRRR QAUUUUAFFFFABRRRQAUUUUAFFFFABRRRQAUUUUAFFFFABRRRQAUUUUAFFFFABRRRQAUUUUAFFFFABRRR QAUUUUAFFFFABRRRQAUUUUAFFFFABRRRQAUUUUAFFFFABRRRQAUUUUAFFFFABRRRQAUUUUAFFFFABRRR QAUUUUAFFFFABRRRQAUUUUAFFFFABRRRQAUUUUAFFF FABRRRQAUUUUAFFFFABRRRQAUUUUAFFFFABRRRQAUUUUAFFFFABRRRQAUUUUAFFFFABRRRQAUUUUAFFF FABRRRQAUUUUAFFFFABRRRQAUUUUAFFFFABRRRQAUUUUAFFFFABRRRQAUUUUAFFFFABRRRQAUUUUAFFF FABRRRQAUUUUAFFFFABRRRQAUUUUAFFFFABRRRQAUU UUAFFFFABRRRQAUUUUAFFFFABRRRQAUUUUAFFFFABRRRQAUUUUAFFFFABRRRQAUUUUAFFFFABRRRQAUU UUAFFFFABRRRQAUUUUAFFFFABRRRQAUUUUAFFFFABRRRQAUUUUAFFFFABRRRQAUUUUAFFFFABRRRQAUU UUAFFFFABRRRQAUUUUAFFFFABRRRQAUUUUAFFFFABR RRQAUUUUAFFFFABRRRQAUUUUAFFFFABRRRQAUUUUAFFFFABRRRQAUUUUAFFFFABRRRQAUUUUAFFFFABR RRQAUUUUAFFFFABRRRQAUUUUAFFFFABRRRQAUUUUAFFFFABRRRQAUUUUAFFFFABRRRQAUUUUAFFFFABR RRQAUUUUAFFFFAH/4A0NUS7xc3ApKYRuIWotgoXxNe eRBaX8GDDvj3ApLMx0PF4VuGYbL83wskL2yK9TPDphHbzyk9DnGCVgJmptlWEjQ4AnQVWaFBOuk5JwB6 ohobg2tIDlUIG+La6Fd7VcIALiKHy5lD5NPMoGFARQy6Z/iQK9zMqyM3jXbZhFmFt6KLiahThhTtw/b5 JapbRTcnffvfcSjCAATCBGwBAODJCaSwhouiwBRKCR pCYsqLLgQg3lECmakWv0QrXOsXxyYDK3twr1InRMGL+CT4AP810MnCHhyOrvgP4jO8LtYqnMzh2vnd+K nNvTqaqshQ51QwdKsAO1iVonpYVXbz9Km9dfGRxs4ELIe7+0JNuMfNuymii3Ole/qyfO4VpmN7U7UleB GaPMPkAiCJT9joBeeC6MXA5ul5IsSShoMUCdNP8dmh 0KPDwvUHJvZHVjZXIo/v9PJQBxJGHEkbRpKDPNllRoHESZblEkDJ7VJcCrRAmJWzMrOXYJSsEnTBFFPH ZoRCIWXCUjMBnbR9KlBGA6g5Oj/f5DFLGsRCGCxoSyJPAKngYnHGXYjsWbDP0ACiNdOWhLWxYnNJAFWy RnRJHMDJErKAVHMTVcWUgaY9JmLUO5sA6oUFY1FQgZ RdBqQsBfPFR0KFHhIWP1KLYgPB9hHZV6SDdLVwNfIiMmPVF3WVIfNWD8IEG+Ct9KJW1rs7CgCUbcLOZj MK1pez1ZFlScAIAfUO5GWY0qj3YbRJhmAMWvFZ5wjd5MAyUfSNIrEI4IEN6uj1SmYVroJBHzQS4cql3C DMctQEesRN6VYfPhQ7YokpLzLgVgI5cbCFX6CGVpQS 0Nw825GZUsJDXSV7prJr8kGKytDZDYL9oDCwf8KuDDFVlnHDTWDWaCSYM6ELtNGyI9DGYzBDQ7A8E9MA 00DcZJGUz4MLK0CJM1VCJ0YSu7D1OJAjJkLFEEJgYPDaZ+XJQxNwrfqSUkK9HsYHEmVETvs6RuK9poor t1nCJ6KW3+VJqcrPWzCT9OApilS0GTua//GYGkIAMD yBuQGFfKHODxZLC4P1sl34VcwbIfelfPvcayrVMUMMOHLCXJZXOiSvxoPAPAuzxUuPq6NzQnTVBJMgTB REuxQmEEQmNVLZ8UK9eDEdMhAFE8apGhsZ5GBN0kc5RsYVl1dsIhLOvlXXBiHRkxEKSrRMWaELSjPYU7 VOL4UZBGVfFfKDCdKWJfALlnOZRfHNZawb2QXUDfTX ZxFOOnBABtOCWvRKCdRRoeKRTrKATvJAocVNZlZXFpVG4JHiHcAJNxQAW8CFEpARBpRCRuui0FTRGoBQ DoHJyaDKUpHMFbJEVvWPelPIUqULEfVBQvGMYrJKRfOW1WZnDfXNBdSYSvQQUyBJDrUWOfkl0GDSIdNO YyHWQwFtPzDPGlSTGzBInxXKGbPJQtEAN2CMRjFLZc VJ7EMzBqYLDsYURiXTOtHiB8EfBrPc0ABRQvEVYwSCMiLbF5BTPePTWjAWfpFYAqJTWvZGHiFVW1RWZ1 SEWSWgLhNKNlEVPvYTRePbR9UvLxJo5LMPFxLOPvHUQcFIE5CVUmGYZaDQffXQUgMBZrZWB2NVQ1KTW5 KBQJVuXcNDNlIECrEHmhNoK3CyMwJu8PHVJgTOAxVE FqJUJ8LYTjJWLjAAgoPBPgBZdaBpB5VSOsIKQmUA1AMlNpVIOjMLJ4LiYeEWHmGLOycw7SBHFaHZT8DV C6HOKhWPDrVXZqPRkpYMGwTBvbGyF1THIzHMJgIV4BBhYnVDnvCHHOOih0U3TkkzZoXqUyGc8oqJXbFE XiQi6RsbOmMXI2TCPcGe4OKYy3WuWZSZn7IEG5VEE8 YFX2HKy8S8SLPxNvZNNHLrSXAiM+ECz5NUI5JFDSVTY1GMKNKMU3D6LFRUzsRAZiMnCwMpCtUi6iZy1J WoL5PIJ7nGBhGr3LUZZ7FHSRKcGaRJ1PAQi7joMyIKegENEPWjDsEUthHBYFNfz2B3CgdkUtRqKxXp7a hLGxDJIbKt2TtrNmOTV5GKKpDk5KIFy2XgUPCTq5AO D2QKB0BMC0PSb4T9OAPhRaKGCGVxDDAtE+JRt6PFQ3EIROTOJ8WMTZXQP5F8MJKEtrJOFwSrLdPjDcBq 6jR2QoHZPlQGG8FFFqJQPzCyU9gTF7HKYwFy5+DQpzdGFydHhyZWYNCjkyNTAxDQolJUVPRg== ID Date Data Source [id number] 12/21/2019 09:09:00 AM EDT [facility] Name Value Range Interpretation Code Description Data Balbina rce(s) Supporting Document(s) COLOR,UR GER YELLOW A [facility] APPEARANCE,UR CLEAR CLEAR [facility] PH,UR 5.0 5.0-8.0 [facility] SPECIFIC GRAVITY,UR 1.032 1.002-1.035 [facility] PROTEIN,UR 30 MG/DL NEGATIVE A [facility] GLUCOSE, UR NEGATIVE MG/DL NEGATIVE [facility] KETONES,UR TRACE MG/DL NEGATIVE [facility] OCCULT BLOOD,UR NEGATIVE NEGATIVE [facility] NITRATE,UR NEGATIVE NEGATIVE [facility] LEUKOCYTE ESTERASE ,UR NEGATIVE NEGATIVE [facility] BILIRUBIN,UR NEGATIVE NEGATIVE [facility] UROBILINOGEN,UR 2.0 EU MG/DL NEG-0-1.0 A [facility] ID Date Data Source [id number] 12/21/2019 09:15:00 AM EDT [facility] Name Value Range Interpretation Code Description Data Balbina rce(s) Supporting Document(s) OPIATE SCREEN NEG NEGATIVE [facility] Minimum Detectable Limit is 300 ng/mL. BARBITURATE SCREEN NEG NEGATIVE [facility] Minimum Detectable Limit is 300 ng/mL. PHENCYCLIDINE SCREEN NEG NEGATIVE [facility] Minimum Detectable Limit is 25 ng/mL. AMPHETAMINE SCREEN POS NEGATIVE [facility] Minimum Detectable Limit is 1000 mg/mL. BENZODIAZEPINE SCREEN NEG NEGATIVE [facility] Mininum Detectable Limit is 300 ng/mL. COCAINE SCREEN NEG NEGATIVE [facility] Minimum Detectable Limit is 300 ng/mL. CANNABINOID SCREEN POS NEGATIVE [facility] Minimum Detectable limit is 50 ng/dL. HEROIN SCREEN NEG NEGATIVE [facility] Minimum Detectable limit is 10 ng/dL. A ll POSITIVE or BORDER results are unconfirmed. Please contact the laboratory if a reference testing confirmation is needed. ID Date Data Source [id number] 12/23/2019 08:07:00 AM EDT [facility] Name Value Range Interpretation Code Description Data Balbina rce(s) Supporting Document(s) HEPATITIS A ANTIBODY, IgM,S Negative Negative [facility] HEPATITIS A ANTIBODY, Total,S Negative Negative [facility] HEPATITIS B SURF ANTIGEN SCRN Negative Negative [facility] HEPATITIS B CORE ANTIBODY,IGM Negative Negative [facility] HEP B CORE ANTIBODY,TOTAL Negative Negative [facility] HEPATITIS B SURFACE ANTIBODY Reactive . [facility] Non Reactive: Inconsisten t with immunity, less than 10 mIU/mL Reactive: Consistent with immunity, greater than 9.9 mIU/mL HCV Ab,S >11.0 s/co ratio 0.0-0.9 A [facility] HCV COMMENT [facility] Strong reactive antibody screen (s/c ra samir >10.9) is consistent with past or present HCV infection. Follow-up testing by HCV, Quantitative, Real time PCR (#[id number]) is recommended to determine viral load/diagnosis of current HCV infection. Performed at: RN - [facility] [address] [id number] [employer]: Deedee Wagner MD, Phone: [phone] ID Date Data Source [id number] 12/21/2019 08:49:00 AM EDT [facility] Has Patient Fasted For The Past 12 Hour s? N Has Patient Fasted For The Past 12 Hour s? N Has Patient Fasted For The Past 12 Hour s? N Has Patient Fasted For The Past 12 Hour s? N Has Patient Fasted For The Past 12 Hour s? N Name Value Range Interpretation Code Description Data Balbina rce(s) Supporting Document(s) WHITE BLOOD COUNT 9.51 10^3/uL 4.00-10.50 N [facility] ealt RED BLOOD COUNT 4.78 10^6/uL 4.30-5.80 N [facility] th HEMOGLOBIN 14.5 G/DL 13.0-17.5 N [facility] HEMATOCRIT 41.4 % 41.0-53.0 [facility] MCV 86.6 FL 80.0-100.0 [facility] MCH 30.3 PG 27.0-34.0 [facility] MCHC 35.0 G/DL 32-36 N [facility] RDW 12.6 % 11.5-14.5 [facility] PLATELET COUNT 236 10^3/uL 130-400 N [facility] MPV 9.0 FL 8.7-13.2 [facility] GRAN % (AUTO) 64.2 % 42.0-75.0 N [facility] LYMPH % (AUTO) 23.0 % 20.0-51.0 N [facility] MONO % (AUTO) 12.0 % 2.0-15.0 [facility] EOS % (AUTO) 0.2 % 0.0-11.0 N [facility] BASO % (AUTO) 0.4 % 0.0-2.0 N [facility] IG % (AUTO) 0.2 % 1.00-5.[address] [facility] IG # (AUTO) 0.0 10^3/uL <0.[address] [facility] GRAN # (AUTO) 6.10 10^3/uL 1.50-6.50 N [facility] LYMPH # (AUTO) 2.2 k/uL 1.0-5.0 N [facility] MONO # (AUTO) 1.14 k/uL 0.20-1.50 N [facility] EOS # (AUTO) 0.02 10^3/uL 0.00-1.10 [facility] BASO # (AUTO) 0.04 10^3/uL 0.00-0.20 N [facility] ID Date Data Source [id number] 12/22/2019 12:52:[address] [facility] Has Patient Fasted For The Past 12 Hour s? N Has Patient Fasted For The Past 12 Hour s? N Has Patient Fasted For The Past 12 Hour s? N Has Patient Fasted For The Past 12 Hour s? N Has Patient Fasted For The Past 12 Hour s? N Name Value Range Interpretation Code Description Data Balbina rce(s) Supporting Document(s) SODIUM 143 MEQ/L 135-[address] [facility] POTASSIUM 3.9 MEQ/L 3.5-5.[address] [facility] CHLORIDE 106 MEQ/L 94-[address] [facility] CARBON DIOXIDE 26 MEQ/L 22-[address] [facility] ANION GAP 15 5-[address] [facility] BLOOD UREA NITRO 24 MG/DL 7-[address] [facility] CREATININE 0.9 MG/DL 0.6-1.[address] [facility] GFR > 90.0 ML/MIN [facility] Stage G1 - Normal or high kidney functi on The GFR is an estimate of the Glomerular Filtration Rate. It is an aid to assess a patient's renal function. It is not a conclusive diagnosis of kidney disease. GFR normal is >=90 The MDRD GFR calculation is considered valid between the ages of 18 and 75 years only. BUN/CREAT RATIO 26 8-36 N [facility] GLUCOSE 86 MG/DL 70-100 N [facility] CA 10.0 MG/DL 8.7-10.5 N [facility] BILIRUBIN,TOTAL 1.4 MG/DL 0.1-1.3 H [facility] AST 131 U/L 5-40 H [facility] ALT 150 U/L 5-48 H [facility] ALKALINE PHOSPHATASE 73 U/L 40-140 N [facility]th TOTAL PROTEIN 7.6 G/DL 5.9-8.3 N [facility] ALBUMIN 5.5 G/DL 3.0-5.1 H [facility] GLOBULIN 2.1 G/DL 1.5-3.5 N [facility] ALB/GLOB RATIO 2.6 G/DL 1.0-3.0 N [facility] ID Date Data Source [id number] 12/22/2019 12:52:00 PM [facility] Has Patient Fasted For The Past 12 Hour s? N Has Patient Fasted For The Past 12 Hour s? N Has Patient Fasted For The Past 12 Hour s? N Has Patient Fasted For The Past 12 Hour s? N Has Patient Fasted For The Past 12 Hour s? N Name Value Range Interpretation Code Description Data Balbina rce(s) Supporting Document(s) IRON 66 UG/DL 35-150 N [facility] TIBC 320 UG/DL 260-400 [facility] % IRON SATURATION 21.0 % 20-50 N [facility] h ID Date Data Source [id number] 12/22/2019 12:52:00 PM [facility] Has Patient Fasted For The Past 12 Hour s? N Has Patient Fasted For The Past 12 Hour s? N Has Patient Fasted For The Past 12 Hour s? N Has Patient Fasted For The Past 12 Hour s? N Has Patient Fasted For The Past 12 Hour s? N Name Value Range Interpretation Code Description Data Balbina rce(s) Supporting Document(s) SALICYLATE < 3.0 MG/DL 2.8-20.0 N [facility] ID Date Data Source [id number] 12/22/2019 12:52:00 PM [facility] Has Patient Fasted For The Past 12 Hour s? N Has Patient Fasted For The Past 12 Hour s? N Has Patient Fasted For The Past 12 Hour s? N Has Patient Fasted For The Past 12 Hour s? N Has Patient Fasted For The Past 12 Hour s? N Name Value Range Interpretation Code Description Data Balbina rce(s) Supporting Document(s) ACETAMINOPHEN < 2.0 UG/ML 10-30 L [facility] High levels of N-acetylcysteine (used t o treat Acetaminophen overdose) may cause interference and cause a negative bias in the Acetaminophen result. ID Date Data Source [id number] 12/22/2019 12:52:00 PM EDT [facility] Has Patient Fasted For The Past 12 Hour s? N Has Patient Fasted For The Past 12 Hour s? N Has Patient Fasted For The Past 12 Hour s? N Has Patient Fasted For The Past 12 Hour s? N Has Patient Fasted For The Past 12 Hour s? N Name Value Range Interpretation Code Description Data Balbina rce(s) Supporting Document(s) BLOOD ALCOHOL < 0.03 % <0.03 [facility] ID Date Data Source [id number] 11/23/2019 07:06:00 [place] [address] HEALTH INFORMATION MANAGEMENT ED/UC Physician Report : [id number] Signed Patient: Ramirez Mcclure Acct:[id number] Unit: [id number] : 1990 Arrival Date: 11/23/19 Age/Sex: 29 / M Arrival Time: 1850 Copies to: PCP,No General Adult HPI/ROS General Chief Complaint: Abdominal Pain- Female >40 Stated Complaint: Fmcuc- Wheezing,ran out of his inhaler Stated Complaint: Fmcuc-Wheezing,ran out of his inhaler Source: Patient and I have reviewed available Ancillary/nursing staff documentation Mode of arrival: Ambulatory Limitations: Reports No limitations History of Present Illness Initial Comments: pt c/o being out of his inhaler for the past few days, hx of asthma, states no pcp. Onset/Timin Time interval: Days(s) Radiation: Reports Non-radiation Improves with: Reports None Worsens with: Reports None Associated symptoms: Reports Denies other symptoms The patient has taken the following medication for pain:: Denies Aspirin, NSAIDs and Tylenol Related Data Home Medications Medication Instructions Recorded buprenor phine-naloxone [Suboxone 4 8 mg SUBLINGUAL DAILY 12/07/17 mg-1 mg Sl Film] albuterol sulfate 2 puff INHALATION QID #8.5 g 11/23/19 albuterol sulfate 2 puff INHALATION QIDPRN PRN 11/23/19 Allergies No Known Allergies Allergy (Verified 11/23/19 18:56) Review of Systems General: Denies Fever, Chills and Fatigue Eye: Denies E ye pain, Blurred vision and Discharge ENT: Denies Ear ache, Epistaxis, Nasal congestion, Sinus congestion and Sore throat Cardiac: Denies Chest pain, Palpitations and Syncope Respiratory: Denies Cough, Shortness of Breath and Dyspnea on exertion GI: Denies Nausea, Vomiting and Diarrhea : Denies Dysuria, Frequency and Urgency Neuro: Denies Headache, Dizziness, Numbness, Tingling and Weakness Musculoskeletal: Denies Neck Pain and Back Pain Skin: Denies Bruising and Itching Psychiatric: Denies Anxiety and Depression Social History Social History Other: Lives with a girlfriend History of Smoking/Tobacco Use: Current Every Day Smoker Tobacco Product: Reports Cigarettes Alcohol use: Reports History of use Drug use: 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 Occupation: Unemployed Lives with: Reports Roommate Physical Exam Physical Exam General appearance: Alert and In no apparent distress Head Head Exam: Atraumatic and Normcephalic Eye Eye Exam: EOMI, Conjunctiva normal, Sclera normal, LYNNE and Eyelids ENT ENT Exam: Dentition without abscess, External ear normal, No sublingual edema/erythema, No tongue elevation, Throat normal, Tympanic membrane normal and Tonsil normal Nose exam: rhinorrhea Mouth/Throat Exam: Normal inspection Dental Exam: Normal inspection Neck Neck Exam: Full ROM, Supple and Trachea Midline Cardiac Cardiac: Present: Regular rate and rhythm Murmur: Present: None Lung/Chest Lung/Chest Exam: Clear, Normal Exchange and No chest wall tenderness Neuro Neuro Normal: Alert, Oriented x 3, CN 2-12 normal, Fluent speech, Gag Reflex, Gait normal, Se nsory normal and Strength 5/5 all extremities Psych Psych Normal: Normal Affect Skin Skin exam: Dry, Intact, Manlius and Warm Course Vital Signs Vital signs: Vital Signs 11/23/19 18:59 Temperature 97.9 F Pulse Rate 76 Respiratory Rate 16 Blood Pressure 119/66 O2 Sat by Pulse Oximetry 98 Medical Decision Making/CCT Medication/Allergies Review Medication/Allergies Review Home Medication and Allergy review: I reviewed patients allergies, home medications, and new prescriptions and No Allergies reported Blood Pressure Blood pressure: Pt BP not elevated Medical Decision Making Medical Decision Making: will send rx for albuterol, pt advised to get a pcp Discharge Plan Disposition Clinical Impression: Medication refill Asthma Qualifiers: Asthma severity: unspecified severity Asthma persistence: unspecified Asthma complication type: unspecified Qualified Code(s): J45.909 - Unspecified asthma, uncomplicated Provider stated Dispo: Discharged Condition: Good Instructions: Asthma (ED) Prescriptions: New albuterol sulfate 90 mcg/actuation HFA aerosol inhaler 2 puff INHALATION QID Qty: 8.5 RF: 0 No Action buprenorphine-naloxone [Suboxone] 1 EACH film 8 mg Sublingual DAILY RF: 0 albuterol sulfate 90 mcg/actuation HFA aerosol inhaler 2 puff INHALATION QIDPRN PRN (Reason: Wheezing) RF: 0 Referrals: PCP,No [Primary Care Provider] - Patient agreeable to discharge: Patient/Guardian understands and is agreeable to discharge plan Provider in triage note V ital Signs Vital Signs: Vital Signs (Last 8 Hours) Temp Pulse Resp BP Pulse Ox 11/23/19 18:59 97.9 F 76 16 119/66 98 Date/Time <<Signature on File>> Initializing User: Shanika ROBERTS 11/23/191905 Signed by: Shanika Frederick 11/23/191926 Luisito King DO 11/23/192028 Name Value Range Interpretation Code Description Data Balbina rce(s) Supporting Document(s) ID Date Data Source [id number] 08/02/2019 07:36:21 AM EST Laboratory [facility] Name Value Range Interpretation Code Description Data Balbina rce(s) Supporting Document(s) BUPRENORPHINE UR 14 ng/mL [facility] INTERPRETIVE INFORMATION: Buprenorphine and Metabolites, Urine, Quantitative Methodology: Quantitative Liquid [...] laboratory. Test developed and characteristics determined by [facility]. See Compliance Statement B: [facility]/ NORBUPRENORPHINE UR 87 ng/mL Laboratory [facility] BUPRENORPHINE GLUCU >[address] [facility] Unit: ng/mL Consistent with use of a bup renorphine-containing drug. Glucuronide concentrations are semi-quantitative. NORBUPR GLUCURONIDE [address] [facility] Unit: ng/mL NALOXONE,URINE <100 ng/mL [facility] Performed by [facility], [address] [place] [id number] [email or web address] Severo Orta MD, Lab. Director Procedure Vital Signs ID Date Data Source UNK Name Value Range Interpretation Code Description Data Source(s) Body weight 2960 [oz_av] 2960 [oz_av] [facility]) Systolic blood pressure 102 mm[Hg] 102 mm[Hg] A [facility]) Body mass index (BMI) [Ratio] 27.8 kg/m2 27.8 k g/m2 [facility]) Body height 68.4 [in_i] 68.4 [in_i] [facility]) Diastolic blood pressure 74 mm[Hg] 74 mm[Hg] [facility]) Body weight 2968 [oz_av] 2968 [oz_av] [facility]) Systolic blood pressure 116 mm[Hg] 116 mm[Hg] A [facility]) Body mass index (BMI) [Ratio] 27.9 kg/m2 27.9 k g/m2 [facility]) Body height 68.4 [in_i] 68.4 [in_i] [facility] ([facility]) Diastolic blood pressure 80 mm[Hg] 80 mm[Hg] [facility] ([facility]) Body weight 2968 [oz_av] 2968 [oz_av] [facility] ([facility]) Systolic blood pressure 116 mm[Hg] 116 mm[Hg] A [facility] ([facility]) Body mass index (BMI) [Ratio] 27.9 kg/m2 27.9 k g/m2 [facility] ([facility]) Body height 68.4 [in_i] 68.4 [in_i] [facility] ([facility]) Diastolic blood pressure 80 mm[Hg] 80 mm[Hg] [facility] ([facility]) Body weight 3076 [oz_av] 3076 [oz_av] [facility] ([facility]) Systolic blood pressure 123 mm[Hg] 123 mm[Hg] A [facility] ([facility]) Body mass index (BMI) [Ratio] 28.9 kg/m2 28.9 k g/m2 [facility] ([facility]) Body height 68.4 [in_i] 68.4 [in_i] [facility] ([facility]) Diastolic blood pressure 81 mm[Hg] 81 mm[Hg] [facility] ([facility]) Body weight 3076 [oz_av] 3076 [oz_av] [facility] ([facility]) Systolic blood pressure 123 mm[Hg] 123 mm[Hg] A [facility] ([facility]) Body mass index (BMI) [Ratio] 28.9 kg/m2 28.9 k g/m2 [facility] ([facility]) Body height 68.4 [in_i] 68.4 [in_i] [facility] ([facility]) Diastolic blood pressure 81 mm[Hg] 81 mm[Hg] [facility] ([facility]) Body weight 3076 [oz_av] 3076 [oz_av] [facility] ([facility]) Systolic blood pressure 123 mm[Hg] 123 mm[Hg] A [facility] ([facility]) Body mass index (BMI) [Ratio] 28.9 kg/m2 28.9 k g/m2 [facility] ([facility]) Body height 68.4 [in_i] 68.4 [in_i] [facility] ([facility]) Diastolic blood pressure 81 mm[Hg] 81 mm[Hg] [facility] ([facility]) Body weight 2976 [oz_av] 2976 [oz_av] [facility] ([facility]) Systolic blood pressure 111 mm[Hg] 111 mm[Hg] A [facility] ([facility]) Body mass index (BMI) [Ratio] 27.9 kg/m2 27.9 k g/m2 [facility] ([facility]) Body height 68.4 [in_i] 68.4 [in_i] [facility] ([facility]) Diastolic blood pressure 80 mm[Hg] 80 mm[Hg] [facility] ([facility]) Body weight 2976 [oz_av] 2976 [oz_av] [facility] ([facility]) Systolic blood pressure 111 mm[Hg] 111 mm[Hg] A [facility] ([facility]) Body mass index (BMI) [Ratio] 27.9 kg/m2 27.9 k g/m2 [facility] ([facility]) Body height 68.4 [in_i] 68.4 [in_i] [facility] ([facility]) Diastolic blood pressure 80 mm[Hg] 80 mm[Hg] [facility] ([facility]) Body weight 2976 [oz_av] 2976 [oz_av] [facility] ([facility]) Systolic blood pressure 111 mm[Hg] 111 mm[Hg] A [facility] ([facility]) Body mass index (BMI) [Ratio] 27.9 kg/m2 27.9 k g/m2 [facility] ([facility]) Body height 68.4 [in_i] 68.4 [in_i] [facility] ([facility]) Diastolic blood pressure 80 mm[Hg] 80 mm[Hg] [facility] ([facility]) Body weight 2976 [oz_av] 2976 [oz_av] [facility] ([facility]) Systolic blood pressure 111 mm[Hg] 111 mm[Hg] A [facility] ([facility]) Body mass index (BMI) [Ratio] 27.9 kg/m2 27.9 k g/m2 [facility] ([facility]) Body height 68.4 [in_i] 68.4 [in_i] [facility] ([facility]) Diastolic blood pressure 80 mm[Hg] 80 mm[Hg] [facility] ([facility]) Body weight 2912 [oz_av] 2912 [oz_av] [facility] ([facility]) Systolic blood pressure 109 mm[Hg] 109 mm[Hg] [facility] Body mass index (BMI) [Ratio] 27.3 kg/m2 27.3 k g/m2 [facility] ([facility]) Body height 68.4 [in_i] 68.4 [in_i] [facility] ([facility]) Diastolic blood pressure 71 mm[Hg] 71 mm[Hg] [facility] ([facility]) Body weight 2912 [oz_av] 2912 [oz_av] [facility] ([facility]) Systolic blood pressure 109 mm[Hg] 109 mm[Hg] A [facility] ([facility]) Body mass index (BMI) [Ratio] 27.3 kg/m2 27.3 k g/m2 [facility] ([facility]) Body height 68.4 [in_i] 68.4 [in_i] [facility] ([facility]) Diastolic blood pressure 71 mm[Hg] 71 mm[Hg] [facility] ([facility]) Body weight 2912 [oz_av] 2912 [oz_av] [facility] ([facility]) Systolic blood pressure 109 mm[Hg] 109 mm[Hg] A [facility] ([facility]) Body mass index (BMI) [Ratio] 27.3 kg/m2 27.3 k g/m2 [facility] ([facility]) Body height 68.4 [in_i] 68.4 [in_i] [facility] ([facility]) Diastolic blood pressure 71 mm[Hg] 71 mm[Hg] [facility] ([facility]) Body weight 2912 [oz_av] 2912 [oz_av] [facility] ([facility]) Systolic blood pressure 109 mm[Hg] 109 mm[Hg] A [facility] ([facility]) Body mass index (BMI) [Ratio] 27.3 kg/m2 27.3 k g/m2 [facility] ([facility]) Body height 68.4 [in_i] 68.4 [in_i] [facility] ([facility]) Diastolic blood pressure 71 mm[Hg] 71 mm[Hg] [facility] ([facility]) Body weight 2912 [oz_av] 2912 [oz_av] [facility] ([facility]) Systolic blood pressure 109 mm[Hg] 109 mm[Hg] A [facility] ([facility]) Body mass index (BMI) [Ratio] 27.3 kg/m2 27.3 k g/m2 [facility] ([facility]) Body height 68.4 [in_i] 68.4 [in_i] [facility] ([facility]) Diastolic blood pressure 71 mm[Hg] 71 mm[Hg] [facility] ([facility]) Patient Treatment Plan of Care Planned Activity Planned Date Details Description Data Source (s) Sulfamethoxazole 800 MG / Trimethoprim 160 MG Oral Tablet [facility] ([facility]) [facility] Bupropion Hydrochloride 150 MG Extended Release Oral Tablet [facility] ([facility]) Bupropion Hydrochloride 75 MG Oral Tablet [facility] ([facility]) Sulfamethoxazole 800 MG / Trimethoprim 160 MG Oral Tablet [facility] ([facility]) oxcarbazepine 300 MG Oral Tablet [facility] ([facility]) 24 HR Bupropion Hydrochloride 150 MG Extended Release Oral Tablet [facility] ([facility]) Bupropion Hydrochloride 75 MG Oral Tablet [facility] ([facility]) Sulfamethoxazole 800 MG / Trimethoprim 160 MG Oral Tablet [facility] ([facility]) oxcarbazepine 300 MG Oral Tablet [facility] ([facility]) 24 HR Bupropion Hydrochloride 150 MG Extended Release Oral Tablet [facility] ([facility]) Bupropion Hydrochloride 75 MG Oral Tablet [facility] ([facility]) Sulfamethoxazole 800 MG / Trimethoprim 160 MG Oral Tablet [facility] ([facility]) oxcarbazepine 300 MG Oral Tablet [facility] ([facility]) 24 HR Bupropion Hydrochloride 150 MG Extended Release Oral Tablet [facility] ([facility]) Bupropion Hydrochloride 75 MG Oral Tablet [facility] ([facility]) Sulfamethoxazole 800 MG / Trimethoprim 160 MG Oral Tablet [facility] ([facility]) oxcarbazepine 300 MG Oral Tablet [facility] ([facility]) 24 HR Bupropion Hydrochloride 150 MG Extended Release Oral Tablet [facility] ([facility]) Bupropion Hydrochloride 75 MG Oral Tablet [facility] ([facility]) Buprenorphine 8 MG / Naloxone 2 MG Oral Strip [facility] ([facility])
[2020-09-17] MEDS ORDERED: LORazepam 2 MG TAB PO PRN (10:30)
[2020-09-17 13:28] VITALS: BP 120/68
--- NOTE | 2020-09-18 05:54 | ECGEPIP ---
[facility] - ED Test Date: 2020-09-17 Pat Name: RAMIREZ VERNON Department: Room: - Gender: Male [employer]: PEDRO PABLO : 1990 Requested By: Shiela Padilla Order Number: [id number] Reading MD: Simone Hall Measurements Intervals [place] Rate: 90 P: 21 VT: 135 QRS: 11 QRSD: 94 T: 34 QT: 354 QTc: 434 Interpretive Statements SINUS RHYTHM NSTTW ABNORMALITY(S) NO PRIORS FOR COMPARISON Electronically Signed on 09-18-2020 5:54:07 EST by Simone Hall
== END 2020-09-17 13:39 | disposition home or self-care (01) ==
LOC: M ED 06:41
DX: F43.20 Adjustment disorder, unspecified (principal); Z79.899 Other long term (current) drug therapy; Z79.891 Long term (current) use of opiate analgesic
CPT/HCPCS: 36415; 80048; 80076; 80307; 84443; 85027; 93005; 99285; G0480